=== PATIENT | female | born 1950 | race Caucasian/White ===

== ENCOUNTER → 2017-07-17 09:10 | Outpatient (CLI) | payer MEDICARE, BC, SELFPAY ==
[2017-07-17 13:55] LABS: Basophils % 0.9 % (0.1-2.0); Eosinophils # 0.1 K/mm3 (0.0-0.4); Hematocrit 43.3 % (37.0-47.0); Hemoglobin 14.1 g/dL (12.2-16.2); Lymphocytes # 1.8 K/mm3 (0.7-4.5); Mean Corpuscular HGB Conc 32.7 g/dL (31.8-35.4); Mean Corpuscular Hemoglobin 28.8 pg (27.0-31.2); Mean Platelet Volume 7.9 fl (7.4-10.4); Monocytes # 0.2 K/mm3 (0.1-1.0); Monocytes % 5.5 % (1.7-9.3); Neutrophils # 2.2 K/mm3 (1.8-7.8); Neutrophils % 49.6 % (37.0-80.0); Platelet Count 225 K/mm3 (142-424); Red Blood Count 4.91 M/mm3 (4.20-5.40); Red Cell Distribution Width 14.3 % (11.5-17.5); White Blood Count 4.4 K/mm3 (4.8-10.8)
[2017-07-17 14:01] LABS: Alanine Aminotransferase 59 U/L (12-78); Albumin Level 4.2 gm/dL (3.4-5.0); Albumin/Globulin Ratio 1.2 (1.1-1.8); Alkaline Phosphatase 100 U/L (46-116); Anion Gap 13.3 mEq/L (5-15); Aspartate Amino Transferase 36 U/L (15-37); Bilirubin,Total 0.8 mg/dL (0.2-1.0); Blood Urea Nitrogen 11 mg/dL (7-18); Calcium 10.9 mg/dL (8.5-10.1); Carbon Dioxide 27 mmol/L (21.0-32.0); Chloride 105 mmol/L (98-107); Cholesterol 184 mg/dL (140-200); Creatine Kinase 102 U/L (26-192); Creatinine,Serum 0.52 mg/dL (0.55-1.02); Estimated Glomerular Filt Rate 118 ml/min (>60); GFR (African American) 142 ML/MIN (>60); Globulin 3.4 gm/dl (1.3-3.2); Glucose 101 mg/dL (74-106); HDL Cholesterol 61 mg/dL (29-89); LDL Cholesterol 96 mg/dL (0-130); Potassium 4.3 mmoL/L (3.5-5.1); Sodium 141 mmol/L (136-145); Thyroid Stimulating Hormone 0.84 uIU/ml (0.358-3.740); Total Protein,Serum 7.6 gm/dL (6.4-8.2); Triglycerides 133 mg/dL (30-200); VLDL Cholesterol 27 mg/dL (0-40)
[2017-07-18 12:10] LABS: Folate 16.9 ng/mL (>3.0); Vitamin B12 379 pg/mL (232-1245)
[2017-07-20 20:12] LABS: 1,25-Dihydroxy, Vitamin D-2 11 pg/mL (.)
[2017-07-21 12:49] LABS: 1,25 Dihydroxy Vitamin D 60 pg/mL (.); 1,25-Dihydroxy, Vitamin D-3 49 pg/mL (.)
== END ==
PROVIDERS: PCP Emergency Medicine; Visit Provider Emergency Medicine
DX: E78.5 Hyperlipidemia, unspecified (principal); M81.0 Age-related osteoporosis without current pathological fracture; M19.90 Unspecified osteoarthritis, unspecified site
CPT/HCPCS: 36415; 80053; 80061; 82550; 82607; 82652; 82746; 84443; 85025

== ENCOUNTER 2017-07-26 15:00 | Outpatient (RCR) | payer MEDICARE, BC, SELFPAY | END 2017-08-14 16:09 | disposition home or self-care (01) | LOC: PT 15:00 | PROVIDERS: Visit Provider Orthopaedic Surgery | DX: M25.551 Pain in right hip (principal); Z96.641 Presence of right artificial hip joint | CPT/HCPCS: 97033; 97110; 97164 ==

== ENCOUNTER 2017-08-22 09:00 | Outpatient (RCR) | payer MEDICARE, BC, SELFPAY | END 2017-08-29 13:00 | disposition home or self-care (01) | LOC: PT 09:00 | PROVIDERS: PCP Emergency Medicine; Visit Provider Emergency Medicine | DX: M54.42 Lumbago with sciatica, left side (principal) | CPT/HCPCS: 97012; 97014; 97035; 97110; 97163; G0283 ==

== ENCOUNTER 2017-10-12 11:00 | Outpatient (RCR) | payer MEDICARE, BC, SELFPAY | END 2017-10-12 12:07 | disposition home or self-care (01) | LOC: PT 11:00 | PROVIDERS: PCP Emergency Medicine; Visit Provider Orthopaedic Surgery | DX: Z96.642 Presence of left artificial hip joint (principal); M16.12 Unilateral primary osteoarthritis, left hip | CPT/HCPCS: 97110; 97163 ==

== ENCOUNTER 2018-01-23 15:00 | Outpatient (RCR) | payer MEDICARE, BC, SELFPAY | END 2018-02-22 09:46 | disposition home or self-care (01) | LOC: PT 15:00 | PROVIDERS: PCP Emergency Medicine; Visit Provider Neurological Surgery | DX: M51.36 Other intervertebral disc degeneration, lumbar region (principal); M51.26 Other intervertebral disc displacement, lumbar region | CPT/HCPCS: 97012; 97014; 97110; 97140; 97163; G0283 ==

== ENCOUNTER → 2018-05-07 09:04 | Outpatient (CLI) | payer MEDICARE, BC, SELFPAY ==
[2018-05-07 09:11] LABS: Microscopic, Urine URINE MICROSCOPIC (MICROSCOPIC)
[2018-05-07 13:37] LABS: Appearance,Urine TURBID (Clear); Bilirubin,Urine Negative (Negative); Blood, Urine TRACE-I (Negative); Color,Urine YELLOW (Yellow); Glucose,Urine (UA) Negative (Negative); Ketones,Urine Negative (Negative); Leukocyte Esterase,Urine 3+ (Negative); Nitrate,Urine POSITIVE (Negative); PH,Urine 7.5 (5.0-8.5); Protein,Urine TRACE (Negative); Specific Gravity, Urine 1.015 (1.005-1.030)
[2018-05-07 13:43] LABS: Bacteria,Urine 4+ /lpf; WBC,Urine TNTC #/hpf (0-3)
[2018-05-07 13:44] LABS: RBC,Urine Occasional #/hpf (0-3)
== END ==
PROVIDERS: PCP Emergency Medicine; Visit Provider Emergency Medicine
DX: N39.0 Urinary tract infection, site not specified (principal)
CPT/HCPCS: 81001; 87086; 87088; 87186

== ENCOUNTER → 2018-05-30 09:57 | Outpatient (CLI) | payer MEDICARE, BC, SELFPAY ==
[2018-05-30 10:02] LABS: Microscopic, Urine URINE MICROSCOPIC (MICROSCOPIC)
[2018-05-30 14:11] LABS: Appearance,Urine CLOUDY (Clear); Bilirubin,Urine Negative (Negative); Blood, Urine TRACE-I (Negative); Color,Urine YELLOW (Yellow); Glucose,Urine (UA) Negative (Negative); Ketones,Urine Negative (Negative); Leukocyte Esterase,Urine 1+ (Negative); Nitrate,Urine POSITIVE (Negative); Protein,Urine 1+ (Negative); Specific Gravity, Urine 1.025 (1.005-1.030); Urobilinogen,Urine 0.2 EU/dl (0.2)
[2018-05-30 14:30] LABS: Bacteria,Urine 2+ /lpf; WBC,Urine 20-50 #/hpf (0-3)
== END ==
PROVIDERS: PCP Emergency Medicine; Visit Provider Emergency Medicine
DX: N39.0 Urinary tract infection, site not specified (principal)
CPT/HCPCS: 81001; 87086; 87088; 87186

== ENCOUNTER 2018-05-30 10:00 | Outpatient (RCR) | payer MEDICARE, BC, SELFPAY | END 2018-07-03 16:35 | disposition home or self-care (01) | LOC: PT 10:00 | PROVIDERS: Visit Provider Orthopaedic Surgery Adult Reconstructive Orthopaedic Surgery | DX: Z96.641 Presence of right artificial hip joint (principal) | CPT/HCPCS: 97110; 97112; 97116; 97140; 97163 ==

== ENCOUNTER → 2018-07-09 09:33 | Outpatient (CLI) | payer MEDICARE, BC, SELFPAY ==
[2018-07-09 09:40] LABS: Microscopic, Urine URINE MICROSCOPIC (MICROSCOPIC)
[2018-07-09 14:10] LABS: Appearance,Urine CLEAR (Clear); Bilirubin,Urine Negative (Negative); Blood, Urine TRACE-I (Negative); Color,Urine YELLOW (Yellow); Glucose,Urine (UA) Negative (Negative); Ketones,Urine Negative (Negative); Leukocyte Esterase,Urine Negative (Negative); Nitrate,Urine Negative (Negative); PH,Urine 5.5 (5.0-8.5); Protein,Urine Negative (Negative); Specific Gravity, Urine 1.025 (1.005-1.030); Urobilinogen,Urine 0.2 EU/dl (0.2)
[2018-07-09 14:28] LABS: RBC,Urine Occasional #/hpf (0-3)
[2018-07-09 14:29] LABS: Bacteria,Urine Trace /lpf; Calcium Oxalate Crystals,Urine 2+ /lpf; Squamous Epithelial Cell,Urine Occasional #/hpf (0-5); WBC,Urine Occasional #/hpf (0-3)
== END ==
PROVIDERS: PCP Emergency Medicine; Visit Provider Emergency Medicine
DX: N39.0 Urinary tract infection, site not specified (principal)
CPT/HCPCS: 81001

== ENCOUNTER 2018-07-20 08:00 | Outpatient (RCR) | payer MEDICARE, BC, SELFPAY | END 2018-08-21 10:46 | disposition home or self-care (01) | LOC: PT.CARL 08:00 | PROVIDERS: Visit Provider Orthopaedic Surgery Orthopaedic Surgery of the Spine | DX: M54.9 Dorsalgia, unspecified (principal) | CPT/HCPCS: 97110; 97163 ==

== ENCOUNTER → 2018-08-10 08:05 | Outpatient (POV) | payer MEDICARE, BC, SELFPAY ==
[2018-08-10 08:12] LABS: Microscopic, Urine URINE MICROSCOPIC (MICROSCOPIC)
[2018-08-10 13:54] LABS: Appearance,Urine CLOUDY (Clear); Bilirubin,Urine Negative (Negative); Blood, Urine 1+ (Negative); Color,Urine YELLOW (Yellow); Glucose,Urine (UA) Negative (Negative); Ketones,Urine Negative (Negative); Leukocyte Esterase,Urine 1+ (Negative); Nitrate,Urine POSITIVE (Negative); Protein,Urine 1+ (Negative); Urobilinogen,Urine 0.2 EU/dl (0.2)
[2018-08-10 14:19] LABS: Bacteria,Urine 1+ /lpf; WBC,Urine 20-50 #/hpf (0-3)
== END ==
PROVIDERS: PCP Emergency Medicine; Visit Provider Emergency Medicine
DX: N39.0 Urinary tract infection, site not specified (principal)
CPT/HCPCS: 81001; 87086; 87088; 87186

== ENCOUNTER → 2019-04-01 08:05 | Outpatient (CLI) | payer MEDICARE, BC, SELFPAY ==
[2019-04-01 08:16] LABS: Microscopic, Urine URINE MICROSCOPIC (MICROSCOPIC)
[2019-04-01 13:48] LABS: Appearance,Urine CLEAR (Clear); Bilirubin,Urine Negative (Negative); Blood, Urine TRACE-I (Negative); Color,Urine YELLOW (Yellow); Glucose,Urine (UA) Negative (Negative); Ketones,Urine Negative (Negative); Leukocyte Esterase,Urine Negative (Negative); Nitrate,Urine Negative (Negative); Protein,Urine Negative (Negative); Specific Gravity, Urine 1.025 (1.005-1.030); Urobilinogen,Urine 0.2 EU/dl (0.2)
[2019-04-01 14:06] LABS: Hemoglobin A1C 5.6 % (0.0-7.0)
[2019-04-01 14:25] LABS: Alanine Aminotransferase 72 U/L (12-78); Albumin Level 3.8 gm/dL (3.4-5.0); Albumin/Globulin Ratio 1.3 (1.1-1.8); Alkaline Phosphatase 90 U/L (46-116); Anion Gap 12.9 mEq/L (5-15); Aspartate Amino Transferase 30 U/L (15-37); Bilirubin,Total 1.1 mg/dL (0.2-1.0); Blood Urea Nitrogen 12 mg/dL (7-18); Calcium 10.1 mg/dL (8.5-10.1); Carbon Dioxide 26 mmol/L (21.0-32.0); Chloride 104 mmol/L (98-107); Chol/HDL Ratio 3.2 (1-3.5); Cholesterol 223 mg/dL (140-200); Creatine Kinase 62 U/L (26-192); Creatinine,Serum 0.49 mg/dL (0.55-1.02); Estimated Glomerular Filt Rate 125 ml/min (>60); GFR (African American) 152 ML/MIN (>60); Globulin 2.9 gm/dl (1.3-3.2); Glucose 90 mg/dL (74-106); HDL Cholesterol 69 mg/dL (29-89); LDL Cholesterol 115 mg/dL (0-130); Potassium 3.9 mmoL/L (3.5-5.1); Sodium 139 mmol/L (136-145); Thyroid Stimulating Hormone 0.71 uIU/ml (0.358-3.740); Total Protein,Serum 6.7 gm/dL (6.4-8.2); Triglycerides 196 mg/dL (30-200); VLDL Cholesterol 39 mg/dL (0-40)
[2019-04-01 14:27] LABS: Bacteria,Urine Trace /lpf; RBC,Urine Occasional #/hpf (0-3)
[2019-04-01 14:34] LABS: Basophils % 0.4 % (0.1-2.0); Eosinophils # 0.1 K/mm3 (0.0-0.4); Eosinophils % 1.5 % (0.1-12.0); Hematocrit 44.4 % (37.0-47.0); Lymphocytes # 2.3 K/mm3 (0.7-4.5); Lymphocytes % 25.3 % (10-50); Mean Corpuscular HGB Conc 33.8 g/dL (31.8-35.4); Mean Corpuscular Hemoglobin 30.2 pg (27.0-31.2); Mean Corpuscular Volume 89.4 fl (81-99); Mean Platelet Volume 8.7 fl (7.4-10.4); Monocytes # 0.3 K/mm3 (0.1-1.0); Monocytes % 3.8 % (1.7-9.3); Neutrophils # 6.2 K/mm3 (1.8-7.8); Platelet Count 244 K/mm3 (142-424); Red Blood Count 4.96 M/mm3 (4.20-5.40); Red Cell Distribution Width 13.7 % (11.5-17.5)
[2019-04-01 14:41] LABS: Erythrocyte Sedimentation Rate 58 mm/hr (0-30)
[2019-04-02 16:10] LABS: Vitamin B12 402 pg/mL (232-1245)
[2019-04-02 16:11] LABS: Folate 12.5 ng/mL (>3.0); Vitamin D 25 Hydroxy 18.3 ng/mL (30.0-100.0)
== END ==
PROVIDERS: PCP Emergency Medicine; Visit Provider Emergency Medicine
DX: E78.5 Hyperlipidemia, unspecified (principal); I10 Essential (primary) hypertension; E66.9 Obesity, unspecified; J18.9 Pneumonia, unspecified organism; E83.52 Hypercalcemia; R82.90 Unspecified abnormal findings in urine; M51.36 Other intervertebral disc degeneration, lumbar region; M83.9 Adult osteomalacia, unspecified; K75.81 Nonalcoholic steatohepatitis (NASH); Z79.899 Other long term (current) drug therapy
CPT/HCPCS: 36415; 80053; 80061; 81001; 82550; 82607; 82652; 82746; 83036; 84443; 85025; 85651; 87040; 87086

== ENCOUNTER → 2019-11-08 08:19 | Outpatient (CLI) | payer MEDICARE, BC, SELFPAY | PROVIDERS: PCP Emergency Medicine; Visit Provider Family Medicine | DX: Z78.0 Asymptomatic menopausal state (principal); Z87.81 Personal history of (healed) traumatic fracture; I10 Essential (primary) hypertension ==

== ENCOUNTER → 2020-07-02 13:36 | Outpatient (CLI) | payer MEDICARE, BC, SELFPAY ==
--- NOTE | 2020-07-02 | CA_ITS ---
APPROVED REPORT Left Lower Extremity Venous Study for DVT. Group Home Counselor: Iesha Barillas RVT Indications Lower Extremity Edema: Left LLE EDEMA X 1 MTH Medications Aspirin Vein Imaging CFV (L): compressive, spontaneous, phasic, augmentation FEM (L): compressive, spontaneous, phasic, augmentation POP (L): compressive, spontaneous, phasic, augmentation PTV (L): Compressible GSV (L): Compressible Peroneals (L):Compressible GAS (L): Compressible Findings Study suggests no evidence of DVT of the left lower extremity. Study suggests no evidence of SVT of the left lower extremity. Conclusion Study suggests no evidence of DVT of the left lower extremity. Study suggests no evidence of SVT of the left lower extremity. Electronically signed by : Lloyd Mccarty MD 07/02/2020 14:58:14
== END ==
PROVIDERS: PCP Nurse Practitioner Family; Visit Provider Nurse Practitioner Family
DX: M79.662 Pain in left lower leg (principal); I83.892 Varicose veins of left lower extremity with other complications; R60.0 Localized edema
CPT/HCPCS: 93971

== ENCOUNTER → 2021-03-08 11:00 | Outpatient (CLI) | payer MEDICARE, BC, SELFPAY | PROVIDERS: PCP Emergency Medicine; Visit Provider Nurse Practitioner | DX: Z20.822 Contact with and (suspected) exposure to COVID-19 (principal) | CPT/HCPCS: C9803; U0003; U0005 ==

== ENCOUNTER 2021-03-08 11:14 | Emergency (ER) | payer MEDICARE, BC, SELFPAY ==
[2021-03-08 11:15] VITALS: BP 133/79; PULSE 97; RESP 18; TEMP 36.8; O2SAT 97; BMI 34.5
--- NOTE | 2021-03-08 11:46 | XR_ITS ---
PROCEDURE: XR CHEST AP CLINICAL HISTORY: covid exposure, cough, LS COMPARISON: No exams were available for comparison FINDINGS: The cardiomediastinal silhouette and pulmonary vascularity are within normal limits. Calcified node is present in the AP window on the left. There 2 faint small linear densities overlying the right apex and may be related to small clips. Lungs are clear. No acute bony finding. IMPRESSION: No acute findings. Dictated by: Lloyd Mccarty MD 03/08/2021 12:26 Lloyd Mccarty MD in [place] 03/08/2021 12:26
[2021-03-08 11:57] LABS: Coronavirus 19, PCR Not Detected (NotDetected); Influenza A, PCR Not Detected (NotDetected); Influenza B, PCR Not Detected (NotDetected)
--- NOTE | 2021-03-08 12:28 | HMH.EDGENADL ---
ED Disposition Clinical Impression: Viral URI Disposition: Home, Self-Care Condition on Discharge: Good Additional Instructions: Follow-up with your primary care for any persisting symptoms. Return ED with new, worsening, concerning symptoms. Continue all home medications as previously directed. Referrals: Robert Hope MD [Primary Care Provider] - - Critical Care Critical Care Time: No Attestation: On 03/08/21, the high probability of a clinically significant, sudden or life threatening deterioration of the following system(s) required my full and direct attention, intervention and personal management. The time I documented below is in addition to time spent performing reported procedures but includes the following listed in this critical care notation. Medical Decision Making - Medical Records Medical records reviewed: Yes: I reviewed the patient's medical records. - Solomon Inquiry Pt receiving controlled substance: No Vital Signs: 03/08/21 11:15 Temperature 98.3 F Temperature Source Oral Pulse Rate [Left Radial] 97 H Respiratory Rate 18 Blood Pressure [Left Arm] 133/79 Blood Pressure Mean [Left Arm] 97 Blood Pressure Source [Left Arm] Automatic Cuff Blood Pressure Position [Left Arm] Sitting 02 Sat by Pulse Oximetry 97 Oxygen Delivery Method Room Air - Lab Data Lab Results 03/08/21 11:33: SARS-CoV-2 (PCR) Not detected, Influenza A Untype (PCR) Not detected, Influenza Type B (PCR) Not detected - Radiology Data #1 Image(s): Chest Image Reviewed: Yes I reviewed the patient's radiology results INDINGS: The cardiomediastinal silhouette and pulmonary vascularity are within normal limits. Calcified node is present in the AP window on the left. There 2 faint small linear densities overlying the right apex and may be related to small clips. Lungs are clear. No acute bony finding. IMPRESSION: No acute findings. Medical Decision Narrative: 70-year-old female who is presenting with cough, congestion x2 to 3 days. Differential diagnoses include COVID-19, viral upper respiratory infection, GERD, COPD exacerbation, pneumonia. Given this work-up will include COVID-19 swab, chest x-ray. Vital signs currently stable, patient is satting well on room air, breathing is nonlabored. At this point labs not indicated. Patient initially was requesting that she receive a CT scan of her chest, discussed that with her reassuring vital signs and physical exam we would prefer to obtain a COVID-19 test and a chest x-ray to assess for underlying pneumonia. If this is abnormal we will consider obtaining a CT scan however at this point I do not feel that she needs a CT scan of her chest. Labs not currently indicated. No signs of wheezing, clinically less suspicious for COPD exacerbation. Chest x-ray with no acute findings, Covid test negative. Repeat vital signs stable. This point patient is okay for discharge. General Adult HPI - General Chief complaint: Upper Respiratory Infection Stated complaint: soa, cough,sore throat, congestion, runny nose Time Seen by Provider: 03/08/21 11:55 Mode of Arrival: Ambulatory Source of Information: Patient Limitations: No Limitations Description of Symptoms (Recalled from ER Triage Doc. by RN): Pt c/o cough, nasal drainage, and feeling bad since Monday morning. Pt advises that her daughter tested positive for COVID yesterday and pt's PCP told her a CT is necessary to check for pneumonia - History of Present Illness HPI narrative: 70-year-old female presenting with cough over the last 2 to 3 days. Patient is most concerned that she may have COVID-19. States that she is recently been with her daughter and son-in-law who recently tested positive for COVID-19. She has had 2 to 3 days of cough. No fevers or chills. No chest pain. She does state that she had posttussive chest pain yesterday. No unilateral leg swelling, no abdominal pain, no diarrhea, no vomit
[2021-03-08 13:11] VITALS: BP 132/70; PULSE 87; RESP 16; TEMP 36.8; O2SAT 98
== END 2021-03-08 13:12 | disposition home or self-care (01) ==
PROVIDERS: Emergency Provider Emergency Medicine; PCP Emergency Medicine
DX: J06.9 Acute upper respiratory infection, unspecified (principal); Z20.822 Contact with and (suspected) exposure to COVID-19
CPT/HCPCS: 71045; 99282; C9803; U0003; U0005

== ENCOUNTER 2021-05-01 10:13 | Emergency (ER) | payer MEDICARE, BC, SELFPAY ==
[2021-05-01 10:20] VITALS: BP 122/65; PULSE 106; RESP 18; TEMP 37; O2SAT 99; BMI 31.8
--- NOTE | 2021-05-01 10:45 | HMH.EDUTC ---
[facility] [place] Disposition Clinical Impression: COVID-19 virus test result unknown UTI (urinary tract infection) Qualifiers: Urinary tract infection type: acute cystitis Hematuria presence: with hematuria Qualified Code(s): N30.01 - Acute cystitis with hematuria Disposition: Home, Self-Care Condition on Discharge: Good Instructions: Urinary Tract Infection, DI for Urinary Tract Infection (UTI), DI for COVID-19 (Suspected or Confirmed ) Additional Instructions: covid swab was sent to lab, call tomorrow for results. self isolate until test results are known to be negative Increase fluids, water and not soda or tea. Can drink cranberry juice or cranberry extract. White front to back Wear cotton underwear Empty bladder after intercourse Start antibiotics immediately and make sure you take the full course although you may start to see improvement over the next 48 hours. You can eat yogurt or take probiotics to decrease diarrhea or yeast infection caused by the antibiotic Be sure to follow-up anytime for new or worsening symptoms in 48 hours for wound urine culture results be sure to let you PCP no recent urine for culture so they can request records and ensure that you have appropriate antibiotic if you are not getting better or getting worse. If symptoms worsen or do not improve return or be seen in the ER. Follow-up with primary care this week. Prescriptions: cephALEXin [Cephalexin 500mg Tab] 500 mg PO BID 7 Days #14 tab Transmission Status: Pending to [id number] Referrals: Donaldo Godinez MD [Primary Care Provider] - Time of Disposition: 11:03 Medical Decision Making - Solomon Inquiry Pt receiving controlled substance: No Vital Signs: 05/01/21 10:20 Temperature 98.6 F Temperature Source Oral Pulse Rate [Right Brachial] 106 H Respiratory Rate 18 Blood Pressure [Right Arm] 122/65 Blood Pressure Mean [Right Arm] 84 Blood Pressure Source [Right Arm] Automatic Cuff Blood Pressure Position [Right Arm] Sitting 02 Sat by Pulse Oximetry 99 Oxygen Delivery Method Room Air - Lab Data Lab Results 05/01/21 10:23: Urine Color Dark yellow, Urine Appearance Cloudy, Urine pH 5.5, Ur Specific [place] 1.025, Urine Protein 1+, Urine Glucose (UA) Negative, Urine Ketones Negative, Urine Blood 3+, Urine Nitrate Positive A, Urine Bilirubin Negative, Urine Urobilinogen 1, Ur Leukocyte Esterase 1+ A Orders (Tests/Meds): ORDERS Category Date Time Status Covid-19 Nasal PCR ([facility]) Routine Lab 05/01/21 10:37 Ordered Urine Culture Stat Micro 05/01/21 10:50 Ordered [facility] UTC HPI - General Chief complaint: Urgent [facility] Stated complaint: possible uti Time Seen by Provider: 05/01/21 10:45 Mode of Arrival: Ambulatory Source of Information: Patient Limitations: No Limitations Description of Symptoms (Recalled from Triage Doc. by RN): PATIENT C/O FREQUENT URINATION, CONGESTION, AND COUGH X 3 DAYS. REQUESTING COVID TEST HEENT Symptoms (Recalled from RN notes): Yes Resp Symptoms (Recalled from RN notes): Yes Skin Symptoms (Recalled from RN notes): No MS Symptoms (Recalled from RN notes): No Functional Status (Recalled from RN notes): WNL - History of Present Illness Provider Complaint: 70 yr old female presents for back pain, burning with voiding,freq,urgency,and congestion and cough since . also requesting covid test - Related Data Previous Rx's Medication Instructions Recorded cephALEXin [Cephalexin 500mg Tab] 500 mg PO BID 7 Days #14 tab 05/01/21 Allergies Allergy/AdvReac Type Severity Reaction Status Date / Time Sulfa (Sulfonamide Allergy Verified 03/08/21 11:44 Antibiotics) - Worker's Comp Is this a Worker's Comp case?: No [facility] History - Hepatitis A Screen Drug use history?: No High risk sexual behaviors?: No History of sexually transmitted infection?: No Currently employed?: No Childcare worker?: No Do you have indoor plumbing?: Yes Do you have electricity?: Yes Attestat
[2021-05-01 10:51] LABS: Apearance,Urine Cloudy (Clear); Bilirubin,Urine Negative (Negative); Blood, Urine 3+ (Negative); Color,Urine Dark Yellow (Yellow); Glucose,Urine (UA) Negative (Negative); Ketones,Urine Negative (Negative); PH,Urine 5.5 (5.0-8.5); Protein,Urine 1+ (Negative); Specific Gravity, Urine 1.025 (1.005-1.030); UTC Leukocyte Esterase,Urine 1+ (Negative); UTC Nitrate,Urine Positive (Negative); Urobilinogen,Urine 1 EU/dl (0.2)
[2021-05-01 11:03] VITALS: BP 122/65; PULSE 106; RESP 18; TEMP 37; O2SAT 99
== END 2021-05-01 11:06 | disposition home or self-care (01) ==
PROVIDERS: Emergency Provider Nurse Practitioner Family; PCP Family Medicine
DX: U07.1 COVID-19 (principal); N30.01 Acute cystitis with hematuria; B96.20 Unspecified Escherichia coli [E. coli] as the cause of diseases classified elsewhere
CPT/HCPCS: G0463; 81003; 87086; 87088; 87186; 99202; C9803; U0003; U0005

== ENCOUNTER 2022-03-28 10:03 | Emergency (ER) | payer MEDICARE, BC, SELFPAY ==
[2022-03-28 11:20] VITALS: BP 140/83; PULSE 112; RESP 20; TEMP 37.1; O2SAT 95; BMI 32.8
[2022-03-28 11:30] LABS: UTC Strep Screen (Rapid) Negative (Negative)
--- NOTE | 2022-03-28 11:32 | EXP.UTC ---
Discharge Plan Disposition Patient Disposition: Home, Self-Care Condition: Good Prescriptions Prescriptions: New amoxicillin-pot clavulanate 875-125 mg Tablet 1 tab PO Q12H Qty: 20 0RF No Action cephalexin 500 MG tablet 500 mg PO BID 7 Days Qty: 14 0RF Referrals Follow up/Referrals: Jesus Manuel Miller MD [Physician] - See instructions Star Flanagan MD [Physician] - See instructions Provider,MD Becca [Primary Care Provider] - See instructions Activity Restrictions/Add. Instructions Additional Instructions/Restrictions: *Monitor Temp, Over the counter Motrin or Tylenol as directed/as needed Tylenol every 4 hours and Motrin every 6 hours (as long as your family doctor has told you that you can take it) for fever or pain. and straight to ER if unable to lower temp less than 101.0 after medication given *Warm salt water gargles may help to soothe the throat *Throat Lozenges? *Warm fluids like tea with honey may help to soothe the throat? *Sleep elevated *Humidifier/Vaporizer Your throat swab was sent for culture. Those results are typically sent to your primary care. Be sure to follow up in 2-3 days with your family doctor/primary care physician if no improvement so they can review those result and treat if necessary. If you don?t have a primary care doctor, I recommend you get one but in the mean time, you will have to return to a walk in clinic Follow up with your Family Doctor or ENT if no improvement Follow up IMMEDIATELY for new or worsening symptoms or no Noticeable improvement over the next 48-72 hours. 911 for difficulty breathing or swallowing Clinical Impressions Clinical Impression: Acute bacterial tonsillitis Instructions Patient Instructions: Sore Throat, Strep Throat, Amoxicillin and Clavulanic Acid Discharge ED Provider: Arelis Teixeira [facility] [place] HPI General Stated complaint: Sore neck gland, cough, fever Time Seen by Provider: 03/28/22 11:32 History of Present Illness Provider Complaint: Patient states that she started with sore throat States that it has continued to get worse States that she feels like the gland on right side of her throat is swollen and hurting States that today it was worse so she came in to get checked out Related Data Previous Rx's Medication Instructions Recorded cephalexin 500 mg tablet 500 mg PO BID 7 days #14 tabs 05/01/21 amoxicillin 875 mg-potassium 1 tab PO Q12H #20 tabs 03/28/22 clavulanate 125 mg tablet Allergies Allergy/AdvReac Type Severity Reaction Status Date / Time Sulfa (Sulfonamide Allergy Verified 03/08/21 11:44 Antibiotics) [facility] Disclaimer: The information contained in this section may have been updated after the patient was seen, as this information can be updated by other users. Medical History (Updated 03/28/22 @ 11:42 by Arelis Teixeira APRN) Anxiety Hyperlipidemia Hypertension Urinary tract infection Social History Smoking Status: Unknown if ever smoked alcohol intake: never current occupational status: employed Travel in the last 8 weeks: None ROS Obtained: Yes All systems reviewed & no additional complaints except as documented and Yes Systems reviewed as appropriate & no additional complaints except as documented Constitutional Constitutional: Reports system reviewed and no additional complaints, except as documented and Reports as per HPI Eyes Eyes: Reports system reviewed and no additional complaints, except as documented and Reports as per HPI ENT Ears, Nose, Mouth, and Throat: Reports system reviewed and no additional complaints, except as documented, Reports as per HPI and Reports sore throat Cardiovascular Cardiovascular: Reports system reviewed and no additional complaints, except as documented and Reports as per HPI Respiratory Respiratory: Reports system reviewed and no additional complaints, except as documented and Reports as per HPI Physical Exam Gener
[2022-03-28 11:46] VITALS: BP 140/83; PULSE 112; RESP 20; TEMP 37.1; O2SAT 95
== END 2022-03-28 11:47 | disposition home or self-care (01) ==
PROVIDERS: Emergency Provider Nurse Practitioner
DX: J03.80 Acute tonsillitis due to other specified organisms (principal)
CPT/HCPCS: 87880; 99212; G0463

== ENCOUNTER 2022-09-20 10:51 | Emergency (ER) | payer MEDICARE, BC, SELFPAY ==
[2022-09-20 10:52] VITALS: BP 142/78; PULSE 71; RESP 16; TEMP 36.6; O2SAT 98; BMI 34.5
--- NOTE | 2022-09-20 11:03 | EXP.UTC ---
Discharge Plan Disposition Patient Disposition: Home, Self-Care Condition: Good Prescriptions Prescriptions: New phenazopyridine [Pyridium] 200 mg tablet 200 mg PO Q8H 2 Days Qty: 6 0RF ciprofloxacin HCl [Cipro] 500 mg tablet 500 mg PO BID 7 Days Qty: 14 0RF No Action cephalexin 500 MG tablet 500 mg PO BID 7 Days Qty: 14 0RF amoxicillin-pot clavulanate 875-125 mg Tablet 1 tab PO Q12H Qty: 20 0RF Referrals Follow up/Referrals: Provider,Referral, MD [Primary Care Provider] - See instructions Activity Restrictions/Add. Instructions Additional Instructions/Restrictions: Drink plenty of fluids. Take tylenol or ibuprofen for pain or fever. Take the medications as directed. Follow up with your regular doctor. GO TO THE ER FOR ANY WORSENING SYMPTOMS The pyridium will make your urine turn orange, this is an expected side effect. It will stain your clothes if it comes into contact with them. We will culture the urine. That will tell what bacteria is causing your infection and which antibiotics will treat it best. Sometimes the first antibiotic we prescribe turns out to not work against different bacteria. So, make sure you follow up within 3 days if you are not getting better. Clinical Impressions Clinical Impression: UTI (urinary tract infection) Instructions Patient Instructions: Urinary Tract Infection, Urine Culture, DI for Urinary Tract Infection (UTI), Phenazopyridine Discharge ED Provider: Bimal Cheng [facility] [place] General Stated complaint: Possible UTI Time Seen by Provider: 09/20/22 11:03 History of Present Illness Provider Complaint: She c/o dysuria, low back pain and urinary frequency for the past 2 days. Related Data Previous Rx's Medication Instructions Recorded cephalexin 500 mg tablet 500 mg PO BID 7 days #14 tabs 05/01/21 amoxicillin 875 mg-potassium 1 tab PO Q12H #20 tabs 03/28/22 clavulanate 125 mg tablet ciprofloxacin HCl 500 mg tablet 500 mg PO BID 7 days #14 tabs 09/20/22 (Cipro) phenazopyridine 200 mg tablet 200 mg PO Q8H 2 days #6 tabs 09/20/22 (Pyridium) Allergies Allergy/AdvReac Type Severity Reaction Status Date / Time Sulfa (Sulfonamide Allergy Verified 03/08/21 11:44 Antibiotics) [facility] Disclaimer: The information contained in this section may have been updated after the patient was seen, as this information can be updated by other users. Medical History Anxiety Hyperlipidemia Hypertension Urinary tract infection Social History Smoking Status: Unknown if ever smoked alcohol intake: never current occupational status: employed Travel in the last 8 weeks: None ROS Obtained: Yes All systems reviewed & no additional complaints except as documented Constitutional Constitutional: Reports system reviewed and no additional complaints, except as documented, Denies chills and Denies fever(s) Eyes Eyes: Denies eye discharge ENT Ears, Nose, Mouth, and Throat: Denies dysphagia, Denies sore throat and Denies throat swelling Cardiovascular Cardiovascular: Denies chest pain and Denies dyspnea Respiratory Respiratory: Denies chest congestion, Denies cough and Denies dyspnea Gastrointestinal Gastrointestingal: Denies abdominal pain, constipation, diarrhea, dysphagia, nausea or vomiting Genitourinary Female Genitourinary: Reports as per HPI, Reports dysuria, Reports urinary frequency, Denies urinary incontinence, Reports urinary hesitancy and Reports urinary urgency Musculoskeletal Musculoskeletal: Denies arthralgias and Reports back pain Integumentary/Breasts Skin/Breast: Denies rash Neurologic Neurologic: Denies paresthesias Allergic/Immunologic Allergic/Immunologic: Denies throat swelling Physical Exam General General appearance: alert and in no apparent distress Head Head exam: atraumatic and normocephalic Ey
[2022-09-20 11:11] LABS: Apearance,Urine Clear (Clear); Color,Urine Orange (Yellow); Glucose,Urine (UA) Negative (Negative); PH,Urine 5.5 (5.0-8.5); Protein,Urine 3+ (Negative)
[2022-09-20 11:12] LABS: Bilirubin,Urine Negative (Negative); Blood, Urine Negative (Negative); Ketones,Urine Negative (Negative); UTC Leukocyte Esterase,Urine Negative (Negative); UTC Nitrate,Urine Positive (Negative); Urobilinogen,Urine 0.2 EU/dl (0.2)
[2022-09-20 11:36] VITALS: BP 142/78; PULSE 71; RESP 16; TEMP 36.6; O2SAT 98
== END 2022-09-20 11:37 | disposition home or self-care (01) ==
PROVIDERS: Emergency Provider Nurse Practitioner Family
DX: F41.9 Anxiety disorder, unspecified (principal); N39.0 Urinary tract infection, site not specified; E78.5 Hyperlipidemia, unspecified; I10 Essential (primary) hypertension
CPT/HCPCS: 81003; 87086; 87088; 87186; 99212; 99214; G0463

== ENCOUNTER → 2022-10-13 11:00 | Outpatient (CLI) | payer MEDICARE, BC, SELFPAY | PROVIDERS: PCP Nurse Practitioner Family; Visit Provider Nurse Practitioner Family | DX: R30.0 Dysuria (principal); B96.29 Other Escherichia coli [E. coli] as the cause of diseases classified elsewhere | CPT/HCPCS: 87086; 87088; 87186 ==

== ENCOUNTER → 2022-10-27 11:05 | Outpatient (CLI) | payer MEDICARE, BC, SELFPAY | PROVIDERS: PCP Nurse Practitioner Family; Visit Provider Nurse Practitioner Family | DX: N39.0 Urinary tract infection, site not specified (principal) | CPT/HCPCS: 87086 ==

== ENCOUNTER 2022-11-22 09:00 | Outpatient (RCR) | payer MEDICARE, BC, SELFPAY | END 2022-12-22 16:50 | disposition home or self-care (01) | LOC: PT 09:00 | PROVIDERS: Visit Provider Orthopaedic Surgery Adult Reconstructive Orthopaedic Surgery | DX: M17.12 Unilateral primary osteoarthritis, left knee (principal); Z96.652 Presence of left artificial knee joint | CPT/HCPCS: 97010; 97014; 97110; 97140; 97163; 97164; 97530; G0283 ==

== ENCOUNTER 2024-04-23 09:24 | Outpatient (CLI) | payer MEDICARE, SELFPAY ==
[2024-04-23 16:19] LABS: Basophils % 0.6 % (0.1-2.0); Eosinophils # 0.1 K/mm3 (0.0-0.4); Hematocrit 40.8 % (37.0-47.0); Hemoglobin 13.8 g/dL (12.2-16.2); Lymphocytes # 1.1 K/mm3 (0.7-4.5); Lymphocytes % 18.1 % (10-50); Mean Corpuscular HGB Conc 33.8 g/dL (31.8-35.4); Mean Corpuscular Hemoglobin 30.3 pg (27.0-31.2); Mean Corpuscular Volume 89.5 fl (81-99); Mean Platelet Volume 10.5 fl (7.4-10.4); Monocytes # 0.5 K/mm3 (0.1-1.0); Monocytes % 7.3 % (1.7-9.3); Neutrophils # 4.6 K/mm3 (1.8-7.8); Neutrophils % 72.8 % (37.0-80.0); Platelet Count 192 K/mm3 (142-424); Red Blood Count 4.56 M/mm3 (4.20-5.40); Red Cell Distribution Width 12.9 % (11.5-17.5); White Blood Count 6.3 K/mm3 (4.8-10.8)
[2024-04-23 16:51] LABS: Alanine Aminotransferase 31 U/L (12-78); Albumin Level 4.8 g/dl (3.5-5.0); Albumin/Globulin Ratio 2.2 (1.1-1.8); Alkaline Phosphatase 68 U/L (38-126); Anion Gap 13.2 mEq/L (5-15); Aspartate Amino Transferase 44 U/L (14-36); Blood Urea Nitrogen 18 mg/dl (7-17); Calcium 10.9 mg/dl (8.4-10.2); Carbon Dioxide 27 mmol/L (22.0-30.0); Chloride 102 mmol/L (98-107); Chol/HDL Ratio 1.9 (1-3.5); Cholesterol 126 mg/dl (140-200); Estimated Glomerular Filt Rate 121 ml/min (>60); GFR (African American) 146 ML/MIN (>60); Globulin 2.2 g/dL (1.3-3.2); Glucose 78 mg/dl (74-100); HDL Cholesterol 65 mg/dl (40-60); Potassium 4.2 mmoL/L (3.5-5.1); Sodium 138 mmol/L (136-145); Triglycerides 124 mg/dl (30-150); VLDL Cholesterol 25 mg/dL (0-40)
[2024-04-23 17:01] LABS: Direct LDL Cholesterol 51.18 mg/dL (100-129)
[2024-04-23 17:04] LABS: Intact Parathyroid Hormone 130.7 pg/mL (7.5-53.5)
[2024-04-30 22:13] LABS: 1,25 Dihydroxy Vitamin D 71 pg/mL (.); 1,25-Dihydroxy, Vitamin D-2 <10 pg/mL (.); 1,25-Dihydroxy, Vitamin D-3 71 pg/mL (.)
== END 2024-04-23 23:59 | disposition home or self-care (01) ==
LOC: LAB.DROPOF 04-24 09:25
PROVIDERS: PCP Internal Medicine; Visit Provider Internal Medicine
DX: R73.9 Hyperglycemia, unspecified (principal); E78.5 Hyperlipidemia, unspecified; E04.2 Nontoxic multinodular goiter; E55.9 Vitamin D deficiency, unspecified; I10 Essential (primary) hypertension; M15.0 Primary generalized (osteo)arthritis; E21.3 Hyperparathyroidism, unspecified
CPT/HCPCS: 80053; 80061; 82652; 83036; 83970; 84443; 85025

== ENCOUNTER 2024-05-01 06:19 | Emergency (ER) | payer MEDICARE, SELFPAY ==
[2024-05-01] VITALS (10 sets, daily range): BP systolic 112–166; BP diastolic 64–104; PULSE 102–131; RESP 18–32; TEMP 37.2; O2SAT 93–100; BMI 30.4
--- NOTE | 2024-05-01 06:20 | XR_ITS ---
FINAL REPORT TECHNIQUE: Chest PA & Lateral CLINICAL HISTORY: Cough, shortness of breath, fever, likely flu COMPARISON: None FINDINGS: 2 views of the chest were performed. The heart size is normal. The mediastinum is within normal limits. The lungs are underinflated. There is no acute cardiopulmonary process. There are no pleural effusions. There is no pneumothorax. The bony thorax appears intact. IMPRESSION: No acute cardiopulmonary process. Reviewed, Interpreted and Dictated by Juni Giordano MD Transcribed by Swapna Day Authenticated and [facility]
[2024-05-01] MEDS: IPRATROPIUM/ALBUTEROL 3 ML NEB 6 ML IH (06:30)
--- NOTE | 2024-05-01 06:31 | PC.NURSE ---
RT bedside for a gurvinder
--- NOTE | 2024-05-01 06:34 | HMH.EDGENADL ---
Discharge Plan Disposition Patient Disposition: Home, Self-Care Condition: Good Prescriptions Prescriptions: New prednisone 20 mg tablet 40 mg PO DAILY 4 Days Qty: 8 0RF [id number]-[id number]-PX [Bromfed DM] 2-30-10 mg/5 mL syrup 5 ml PO Q6H PRN (Reason: cold symptoms) Qty: 118 0RF ondansetron 4 mg tablet,disintegrating 4 mg PO Q8H PRN (Reason: nausea and vomiting) 4 Days Qty: 12 0RF No Action methenamine hippurate 1 gram tablet 1 g PO BID Patient Comments: TAKE 1 TABLET BY MOUTH TWICE A DAY DIRECTED FOR 90 DAYS losartan 50 mg tablet 50 mg PO DAILY Patient Comments: TAKE 1 TABLET BY MOUTH EVERY DAY alendronate 70 mg tablet 70 mg PO WEEKLY Patient Comments: TAKE 1 TABLET EVERY WEEK BY ORAL ROUTE IN THE MORNING ascorbate calcium (vitamin C) 500 mg tablet 500 mg PO TID ezetimibe 10 mg tablet 10 mg PO DAILY Qty: 90 1RF simvastatin 40 mg tablet 40 mg PO DAILY Qty: 90 1RF venlafaxine 37.5 mg tablet 37.5 mg PO DAILY Qty: 90 1RF gabapentin 600 mg tablet 600 mg PO BID Qty: 180 0RF Referrals Follow up/Referrals: Provider,Referral, MD [Referring] - See instructions Activity Restrictions/Add. Instructions Additional Instructions/Restrictions: You were evaluated in the emergency department today. Please use the inhaler provided to you every 4-6 hours as needed for wheezing/shortness of breath. supervisor tubing your prescriptions and take them as needed as well. Take Tylenol and ibuprofen every 4-6 hours as needed for pain/fever. Follow-up closely with your primary care provider over the next week. Return to the emergency department for new or worsening symptoms. Clinical Impressions Clinical Impression: Influenza A, Wheezing Instructions Patient Instructions: DI for Viral Upper Respiratory Infection -- Adult, DI for Reactive Airway Disease-Adult Print Language Print Language: Japanese Discharge ED Provider: Marion Davidson General Adult HPI <Gerardo Acosta MD - Last Filed: 05/01/24 06:52> General Chief complaint: Shortness of Breath/Dyspnea Stated complaint: Shortness of Breath Time Seen by Provider: 05/01/24 06:20 Mode of Arrival: Wheelchair Source of Information: Patient Limitations: No Limitations Description of Symptoms (Recalled from ER Triage Doc. by RN): Pt presents to ED for SOA, cough, and body aches. Pt states she had a gathering on Monday and other people are sick with the same symptoms. Pt states her back hurts from coughing and she's unable to expel the mucous. Pt rates pain 3/10. Pt is A&O*4 and is bedside. IV access obtaines, swab completed, and MD bedside. History of Present Illness HPI narrative: 73-year-old female with history of hypertension, hyperlipidemia presents for cough shortness of breath fever. She has been sick since Monday. Reports no history of lung problems. No history of smoking. She has had a family gathering on Monday where a lot of people are sick with the same symptoms now. Related Data Home Medications ?Medication ?Instructions ?Recorded ?Confirmed alendronate 70 mg tablet 70 mg PO WEEKLY 10/13/22 05/01/24 losartan 50 mg tablet 50 mg PO DAILY 10/13/22 05/01/24 methenamine hippurate 1 gram tablet 1 g PO BID 10/13/22 05/01/24 ascorbate calcium (vitamin C) 500 500 mg PO TID 12/20/23 05/01/24 mg tablet Previous Rx's ?Medication ?Instructions ?Recorded ezetimibe 10 mg tablet 10 mg PO DAILY #90 tabs 01/08/24 simvastatin 40 mg tablet 40 mg PO DAILY #90 tabs 01/26/24 venlafaxine 37.5 mg tablet 37.5 mg PO DAILY #90 tabs 02/05/24 gabapentin 600 mg tablet 600 mg PO BID #180 tabs 04/30/24 zypznblekteimdw-hotensiehwdlxac-LY 5 ml PO Q6H PRN cold symptoms #118 05/01/24 2 mg-30 mg-10 mg/5 mL oral syrup mL (Bromfed DM) ondansetron 4 mg disintegrating 4 mg PO Q8H PRN nausea and 05/01/24 tablet vomiting 4 days #12 tabs prednisone 20 mg tablet 40 mg (2 x 20 mg) PO DAILY 4 days 05/01/24 #8 tabs Allergies Allergy/AdvReac Type Severity Reaction Status Date / Time Sulfa (Sulfonamide Allergy Verified 04/23/24 13:05 Antibiotics) [facility] <Gerardo Acosta MD - Last Filed: 05/01/24 06:52> [facility] Disclaimer: The information contained in this section may have been updated after the patient was seen, as this information can be updated by other users. Medical History (Updated 05/01/24 @ 09:05 by Marion Davidson DO) Osteoporosis Acute bacterial tonsillitis Anxiety Hyperlipidemia Hypertension Urinary tract infection UTI (urinary tract infection) COVID-19 virus test result unknown Viral URI Surgical History Hip joint replacement status History of colonoscopy H/O thyroidectomy History of cholecystectomy History of appendectomy History of hysterectomy History of left knee replacement History of right hip replacement History of left hip replacement Social History Smoking Status: Never smoker alcohol intake: never current occupational status: employed Travel in the last 8 weeks: None Other Medical History Have you received the Flu Vaccine for this season: No Have you received the Pneumonia Vaccine: Yes <Gerardo Acosta MD - Last Filed: 05/01/24 06:52> ROS Obtained: Yes All systems reviewed & no additional complaints except as documented Physical Exam <Gerardo Acosta MD - Last Filed: 05/01/24 06:52> General General appearance: alert and in no apparent distress Head Head exam: atraumatic and normocephalic Eye Eye exam: Present normal appearance, PERRL and EOMI ENT ENT exam: Present normal oropharynx and normal external ear exam Neck Neck exam: Present normal inspection and full ROM Chest Chest inspection: Present normal inspection and symmetric chest wall rise; Absent tenderness Respiratory Respiratory exam: Absent normal lung sounds bilaterally (Bilateral rhonchi and wheezing) or respiratory distress Cardiovascular Cardiovascular exam: Present normal rhythm and tachycardia Abdominal Exam Abdominal exam: Present soft; Absent distention, tenderness or guarding Extremities Exam Extremities exam: Present normal inspection; Absent edema or joint swelling Back Exam Back exam: Present normal inspection; Absent tenderness Neurological Exam Neurological exam: Present alert and oriented X3; Absent motor sensory deficit Psychiatric Psychiatric exam: Present normal affect and normal mood Skin Skin exam: Present warm, dry and normal color Lymphatic Lymphatic Findings: no adenopathy Medical Decision Making <Gerardo Acosta MD - Last Filed: 05/01/24 06:52> Medical Records Medical records reviewed: Yes I reviewed the patient's medical records. Screening: Per USPSTF and CDC recommendations, given the prevalence of disease in our region, it is our hospital?s policy to screen for HIV and viral Hepatitis for all patients aged 18 and over and those with ongoing risk factors. Solomon Inquiry Pt receiving controlled substance: No Solomon was queried for this patient: No Vital Signs: 05/01/24 06:20 05/01/24 06:30 05/01/24 06:32 Temperature 98.9 F Temperature Source Oral Pulse Rate 102 H 110 H Pulse Rate [Left] 105 H Respiratory Rate 32 H 30 H Blood Pressure 144/82 H Blood Pressure [Right Arm] 166/104 H Blood Pressure Mean [Right Arm] 124 Blood Pressure Source 02 Sat by Pulse Oximetry 94 L 100 Oxygen Delivery Method Room Air 05/01/24 06:32 05/01/24 07:00 05/01/24 07:30 Temperature Temperature Source Pulse Rate 113 H 131 H 125 H Pulse Rate [Left] Respiratory Rate 24 27 H Blood Pressure 125/68 116/77 Blood Pressure [Right Arm] Blood Pressure Mean [Right Arm] Blood Pressure Source 02 Sat by Pulse Oximetry 96 93 L Oxygen Delivery Method Room Air Room Air 05/01/24 08:00 05/01/24 08:30 05/01/24 08:52 Temperature Temperature Source Pulse Rate 122 H 131 H 131 H Pulse Rate [Left] Respiratory Rate 31 H 18 Blood Pressure 136/82 112/64 123/80 Blood Pressure [Right Arm] Blood Pressure Mean [Right Arm] Blood Pressure Source 02 Sat by Pulse Oximetry 93 L 95 93 L Oxygen Delivery Method Room Air Room Air Room Air 05/01/24 09:00 05/01/24 09:22 Temperature 99.0 F Temperature Source Oral Pulse Rate 115 H 116 H Pulse Rate [Left] Respiratory Rate 26 H 21 Blood Pressure 119/64 121/64 Blood Pressure [Right Arm] Blood Pressure Mean [Right Arm] Blood Pressure Source Automatic Cuff 02 Sat by Pulse Oximetry 94 L Oxygen Delivery Method Room Air Room Air Lab Data Lab results reviewed: Yes I reviewed the patient's lab results. Lab Results 05/01/24 06:21: WBC 6.2, RBC 4.77, Hgb 14.4, Hct 43.5, MCV 91.2, MCH 30.2, MCHC 33.1, RDW 13.2, Plt Count 152, MPV 9.9, Neut % (Auto) 77.1, Lymph % (Auto) 16.4, Cottle % (Auto) 4.8, Eos % (Auto) 0.8, Baso % (Auto) 0.6, Neut # (Auto) 4.8, Lymph # (Auto) 1.0, Cottle # (Auto) 0.3, Eos # (Auto) 0.1, Baso # (Auto) 0.0, Sodium 140, Potassium 3.7, Chloride 104, Carbon Dioxide 26, Anion Gap 13.7, BUN 9, Creatinine 0.60, Estimated Creat Clear 61, Estimated GFR 98, Est GFR ( Amer) 118, Glucose 121 H, Calcium 10.5 H, Total Bilirubin 0.8, AST 53 H, ALT 42, Alkaline Phosphatase 74, Total Protein 7.5, Albumin 5.2 H, Globulin 2.3, Albumin/Globulin Ratio 2.3 H, SARS-CoV-2 (PCR) Not detected, HCV Ab SCOTT w/Rflx PCR Qn Negative, HIV Ag/Ab Combo Qual Negative, Influenza A Untype (PCR) Detected A, Influenza Type B (PCR) Not detected 05/01/24 06:37: VBG pH 7.29 L, VBG pCO2 46.5, VBG pO2 47.1 H, VBG HCO3 21.9 L, VBG Total CO2 23.3, VBG O2 Saturation 82.6 H, VBG Base Excess -4.7 L, VBG Lactic Acid 1.4 05/01/24 06:21 05/01/24 06:21 Orders (Tests/Meds): ED MEDICATIONS Discontinued Medications Generic Name Dose Route Start Last Admin Trade Name Tamir PRN Reason Stop Dose Admin Acetaminophen 1,000 mg 05/01/24 07:37 05/01/24 08:01 Acetaminophen 1,000mg/100ml Vial IV 05/01/24 07:38 1,000 mg ONCE ONE Administration Albuterol Sulfate 2 puff 05/01/24 08:53 05/01/24 09:03 Albuterol-Hfa 90mcg/Puff Inhaler 8gm 05/01/24 08:54 2 puff ONCE ONE Administration Albuterol/Ipratropium 6 ml 05/01/24 06:20 05/01/24 06:30 Ipratropium/Albuterol 3 Ml Neb 05/01/24 06:21 6 ml ONCE ONE Administration Albuterol/Ipratropium 3 ml 05/01/24 07:37 05/01/24 08:02 Ipratropium/Albuterol 3 Ml [facility] 05/01/24 07:38 3 ml ONCE ONE Administration Sodium Chloride 1,000 mls @ 999 mls/hr 05/01/24 06:45 05/01/24 06:46 Sod Chlor 0.9% 1000ml Bag IV 05/01/24 07:45 999 mls/hr .Q1H1M ART Administration Ketorolac Tromethamine 15 mg 05/01/24 07:37 05/01/24 08:01 Ketorolac 30mg/Ml Vial IV 05/01/24 07:38 15 mg ONCE ONE Administration Methylprednisolone Sodium Succinate 125 mg 05/01/24 07:37 05/01/24 08:01 Methylprednisolone Sod Succ 125mg Vial IV 05/01/24 07:38 125 mg ONCE ONE Administration ORDERS Category Date Time Status CXR 2 view (NOT portable) [XR chest 2V] Stat Exams 05/01/24 06:20 Completed CBC w/Auto Diff [Complete Blood Count Auto Diff] Stat Lab 05/01/24 06:21 Completed CMP [Comprehensive Metabolic Panel] Stat Lab 05/01/24 06:21 Completed HIV Combo Routine Lab 05/01/24 06:21 Completed Hepatitis C Ab Qual. W/ RFX Routine Lab 05/01/24 06:21 Completed Lactate Venous Stat Lab 05/01/24 06:37 Ordered Rapid PCR Covid and Flu A/B Stat Lab 05/01/24 06:21 Completed Blood Culture Stat Micro 05/01/24 06:28 Received VBG [Venous Blood Gas] Stat RT 05/01/24 06:37 Completed Tissue Perfus/Sepsis Re-Eval Sepsis Re-Evaluation Performed: Yes Date Performed: 05/01/24 Time Performed: 06:37 Medical Decision Narrative: 73-year-old female history of hypertension, hyperlipidemia presents with 3 days of cough congestion fever chills muscle aches. History was obtained via interactive discussion with patient, family, chart review. On arrival, patient is afebrile, mildly tachycardic, satting mid 90s on room air, moving all extremities spontaneously. Full physical exam performed and significant for bilateral wheezing and rhonchi Differential includes but is not limited to influenza, URI, bacterial pneumonia. Patient was given 1 L IV fluid bolus, Toradol, DuoNeb x 2 for symptomatic management and correction of underlying abnormalities. Workup initiated including CBC CMP VBG 2 view chest x-ray blood cultures lactate. Patient flagged positive for sepsis. Patient was only given 1 L of IV fluids at this time given concern for volume overload. No antibiotics were given immediately as patient likely has viral influenza. Lab results independently interpreted me and significant for mild acidosis, no leukocytosis, no significant electrolyte derangement. Radiographs independently interpreted by me and significant for no lobar opacity. Relatively prominent aortic arch noted. At this time care handed off to oncoming physician pending flu swab and reassessment. <Marion Davidson, DO - Last Filed: 05/01/24 10:33> Vital Signs: 05/01/24 06:20 05/01/24 06:30 05/01/24 06:32 Temperature 98.9 F Temperature Source Oral Pulse Rate 102 H 110 H Pulse Rate [Left] 105 H Respiratory Rate 32 H 30 H Blood Pressure 144/82 H Blood Pressure [Right Arm] 166/104 H Blood Pressure Mean [Right Arm] 124 Blood Pressure Source 02 Sat by Pulse Oximetry 94 L 100 Oxygen Delivery Method Room Air 05/01/24 06:32 05/01/24 07:00 05/01/24 07:30 Temperature Temperature Source Pulse Rate 113 H 131 H 125 H Pulse Rate [Left] Respiratory Rate 24 27 H Blood Pressure 125/68 116/77 Blood Pressure [Right Arm] Blood Pressure Mean [Right Arm] Blood Pressure Source 02 Sat by Pulse Oximetry 96 93 L Oxygen Delivery Method Room Air Room Air 05/01/24 08:00 05/01/24 08:30 05/01/24 08:52 Temperature Temperature Source Pulse Rate 122 H 131 H 131 H Pulse Rate [Left] Respiratory Rate 31 H 18 Blood Pressure 136/82 112/64 123/80 Blood Pressure [Right Arm] Blood Pressure Mean [Right Arm] Blood Pressure Source 02 Sat by Pulse Oximetry 93 L 95 93 L Oxygen Delivery Method Room Air Room Air Room Air 05/01/24 09:00 05/01/24 09:22 Temperature 99.0 F Temperature Source Oral Pulse Rate 115 H 116 H Pulse Rate [Left] Respiratory Rate 26 H 21 Blood Pressure 119/64 121/64 Blood Pressure [Right Arm] Blood Pressure Mean [Right Arm] Blood Pressure Source Automatic Cuff 02 Sat by Pulse Oximetry 94 L Oxygen Delivery Method Room Air Room Air Lab Data Lab Results 05/01/24 06:21: WBC 6.2, RBC 4.77, Hgb 14.4, Hct 43.5, MCV 91.2, MCH 30.2, MCHC 33.1, RDW 13.2, Plt Count 152, MPV 9.9, Neut % (Auto) 77.1, Lymph % (Auto) 16.4, Cottle % (Auto) 4.8, Eos % (Auto) 0.8, Baso % (Auto) 0.6, Neut # (Auto) 4.8, Lymph # (Auto) 1.0, Cottle # (Auto) 0.3, Eos # (Auto) 0.1, Baso # (Auto) 0.0, Sodium 140, Potassium 3.7, Chloride 104, Carbon Dioxide 26, Anion Gap 13.7, BUN 9, Creatinine 0.60, Estimated Creat Clear 61, Estimated GFR 98, Est GFR ( Amer) 118, Glucose 121 H, Calcium 10.5 H, Total Bilirubin 0.8, AST 53 H, ALT 42, Alkaline Phosphatase 74, Total Protein 7.5, Albumin 5.2 H, Globulin 2.3, Albumin/Globulin Ratio 2.3 H, SARS-CoV-2 (PCR) Not detected, HCV Ab SCOTT w/Rflx PCR Qn Negative, HIV Ag/Ab Combo Qual Negative, Influenza A Untype (PCR) Detected A, Influenza Type B (PCR) Not detected 05/01/24 06:37: VBG pH 7.29 L, VBG pCO2 46.5, VBG pO2 47.1 H, VBG HCO3 21.9 L, VBG Total CO2 23.3, VBG O2 Saturation 82.6 H, VBG Base Excess -4.7 L, VBG Lactic Acid 1.4 Orders (Tests/Meds): ED MEDICATIONS Discontinued Medications Generic Name Dose Route Start Last Admin Trade Name Freq PRN Reason Stop Dose Admin Acetaminophen 1,000 mg 05/01/24 07:37 05/01/24 08:01 Acetaminophen 1,000mg/100ml Vial IV 05/01/24 07:38 1,000 mg ONCE ONE Administration Albuterol Sulfate 2 puff 05/01/24 08:53 05/01/24 09:03 Albuterol-Hfa 90mcg/Puff Inhaler 8gm 05/01/24 08:54 2 puff ONCE ONE Administration Albuterol/Ipratropium 6 ml 05/01/24 06:20 05/01/24 06:30 Ipratropium/Albuterol 3 Ml [facility] 05/01/24 06:21 6 ml ONCE ONE Administration Albuterol/Ipratropium 3 ml 05/01/24 07:37 05/01/24 08:02 Ipratropium/Albuterol 3 Ml [facility] 05/01/24 07:38 3 ml ONCE ONE Administration Sodium Chloride 1,000 mls @ 999 mls/hr 05/01/24 06:45 05/01/24 06:46 Sod Chlor 0.9% 1000ml Bag IV 05/01/24 07:45 999 mls/hr .Q1H1M ART Administration Ketorolac Tromethamine 15 mg 05/01/24 07:37 05/01/24 08:01 Ketorolac 30mg/Ml Vial IV 05/01/24 07:38 15 mg ONCE ONE Administration Methylprednisolone Sodium Succinate 125 mg 05/01/24 07:37 05/01/24 08:01 Methylprednisolone Sod Succ 125mg Vial IV 05/01/24 07:38 125 mg ONCE ONE Administration ORDERS Category Date Time Status CXR 2 view (NOT portable) [XR chest 2V] Stat Exams 05/01/24 06:20 Completed CBC w/Auto Diff [Complete Blood Count Auto Diff] Stat Lab 05/01/24 06:21 Completed CMP [Comprehensive Metabolic Panel] Stat Lab 05/01/24 06:21 Completed HIV Combo Routine Lab 05/01/24 06:21 Completed Hepatitis C Ab Qual. W/ RFX Routine Lab 05/01/24 06:21 Completed Lactate Venous Stat Lab 05/01/24 06:37 Ordered Rapid PCR Covid and Flu A/B Stat Lab 05/01/24 06:21 Completed Blood Culture Stat Micro 05/01/24 06:28 Received VBG [Venous Blood Gas] Stat RT 05/01/24 06:37 Completed Medical Decision Narrative: 73-year-old female history of hypertension, hyperlipidemia presents with 3 days of cough congestion fever chills muscle aches. History was obtained via interactive discussion with patient, family, chart review. On arrival, patient is afebrile, mildly tachycardic, satting mid 90s on room air, moving all extremities spontaneously. Full physical exam performed and significant for bilateral wheezing and rhonchi Differential includes but is not limited to influenza, URI, bacterial pneumonia. Patient was given 1 L IV fluid bolus, Toradol, DuoNeb x 2 for symptomatic management and correction of underlying abnormalities. Workup initiated including CBC CMP VBG 2 view chest x-ray blood cultures lactate. Patient flagged positive for sepsis. Patient was only given 1 L of IV fluids at this time given concern for volume overload. No antibiotics were given immediately as patient likely has viral influenza. Lab results independently interpreted me and significant for mild acidosis, no leukocytosis, no significant electrolyte derangement. Radiographs independently interpreted by me and significant for no lobar opacity. Relatively prominent aortic arch noted. At this time care handed off to oncoming physician pending flu swab and reassessment. DO Stuart: I assumed care of the patient at 7 AM at time of departure previous provider. On my assessment, she states the breathing treatments initially helped but she is starting to feel bad again. She does sound wheezy. She is lying in bed in no distress but is mildly tachypneic with a rate of 26, tachycardic with a heart rate of 120, and O2 saturation on room air is 92%. She denies any history of asthma, COPD, or other pulmonary disease. Labs are reassuring against sepsis/bacterial etiology with a normal white count. She did test positive for flu A, which explains her symptoms. Blood cultures were sent and are pending nonetheless given that she technically meets SIRS criteria based on vitals, though I doubt sepsis. I independently interpreted x-ray prior to radiology read and noted that the patient does not have any large focal consolidation concerning for bacterial pneumonia, but obstruction does have viral pneumonitis. Please see radiology read for final interpretation. I independently interpreted EKG at 7:01 AM and noted sinus tachycardia with a ventricular rate of [address] changes concerning for ischemia. Normal intervals Given the patient is still wheezy, will administer another DuoNeb and assess for further symptomatic improvement. Will also administer IV methylprednisolone in the setting of presumed reactive airway disease. I also administered Tylenol and Toradol for symptomatic improvement of acute viral illness. She felt a lot better after this and was able to ambulate without dropping her O2 saturation. I considered admission given persistent tachycardia and requiring multiple nebulizer treatments, however the patient states that she would like to try going home. Given this, she was provided with inhaler. She was also given prescriptions for Bromfed as well as Zofran and a short course of steroids given her wheezing/superimposed reactive airway disease. Strict return precautions were given as well as instructions for close follow-up with primary care. Patient was discharged after all questions were answered. Procedures <Gerardo Acosta MD - Last Filed: 05/01/24 06:52> Risk/Benefits of Procedure(s) Were Explained: Yes Critical Care <Gerardo Acosta MD - Last Filed: 05/01/24 06:52> Critical Care Time Critical Care Time: Yes Attestation: On 05/01/24, the high probability of a clinically significant, sudden or life threatening deterioration of the following system(s) required my full and direct attention, intervention and personal management. The time I documented below is in addition to time spent performing reported procedures but includes the following listed in this critical care notation. Total Time Total Critical Care Time: 40
[2024-05-01 06:36] LABS: Basophils % 0.6 % (0.1-2.0); Coronavirus 19, PCR Not Detected (NotDetected); Eosinophils # 0.1 K/mm3 (0.0-0.4); Eosinophils % 0.8 % (0.1-12.0); Hematocrit 43.5 % (37.0-47.0); Hemoglobin 14.4 g/dL (12.2-16.2); Influenza B, PCR Not Detected (NotDetected); Lymphocytes % 16.4 % (10-50); Mean Corpuscular HGB Conc 33.1 g/dL (31.8-35.4); Mean Corpuscular Hemoglobin 30.2 pg (27.0-31.2); Mean Corpuscular Volume 91.2 fl (81-99); Mean Platelet Volume 9.9 fl (7.4-10.4); Monocytes # 0.3 K/mm3 (0.1-1.0); Monocytes % 4.8 % (1.7-9.3); Neutrophils # 4.8 K/mm3 (1.8-7.8); Neutrophils % 77.1 % (37.0-80.0); Platelet Count 152 K/mm3 (142-424); Red Blood Count 4.77 M/mm3 (4.20-5.40); Red Cell Distribution Width 13.2 % (11.5-17.5); White Blood Count 6.2 K/mm3 (4.8-10.8)
[2024-05-01 06:37] LABS: Lactate Venous 1.4 mmol/L (0.4-2.0); VBG Base Excess -4.7 mmol/L (-2.4-2.3); VBG HCO3 21.9 mmol/L (23-30); VBG Oxygen Saturation 82.6 % (50-70); VBG PCO2 46.5 mmol/L (35-51); VBG PH 7.29 mmol/L (7.31-7.41); VBG PO2 47.1 mmol/L (28-40); VBG Total CO2 23.3 mmol/L (23-27)
[2024-05-01 06:40] LABS: Albumin Level 5.2 g/dl (3.5-5.0); Chloride 104 mmol/L (98-107); Sodium 140 mmol/L (136-145)
[2024-05-01 06:41] LABS: Potassium 3.7 mmoL/L (3.5-5.1)
[2024-05-01 06:43] LABS: Alanine Aminotransferase 42 U/L (12-78); Albumin/Globulin Ratio 2.3 (1.1-1.8); Alkaline Phosphatase 74 U/L (38-126); Anion Gap 13.7 mEq/L (5-15); Aspartate Amino Transferase 53 U/L (14-36); Bilirubin,Total 0.8 mg/dl (0.2-1.3); Blood Urea Nitrogen 9 mg/dl (7-17); Carbon Dioxide 26 mmol/L (22.0-30.0); Creatinine Clearance Estimated 61 mL/min (50-200); Estimated Glomerular Filt Rate 98 ml/min (>60); GFR (African American) 118 ML/MIN (>60); Globulin 2.3 g/dL (1.3-3.2); Total Protein,Serum 7.5 g/dl (6.3-8.2)
[2024-05-01 06:44] LABS: Calcium 10.5 mg/dl (8.4-10.2); Glucose 121 mg/dl (74-100)
[2024-05-01] MEDS: 0.9 % SODIUM CHLORIDE 1000ML 1,000 ML 999 ML IV (06:46)
--- NOTE | 2024-05-01 07:01 | ECG_ITS ---
APPROVED REPORT Exam: Resting ECG HR:131 bpm ECG Measurements Heart Rate 131 AXES NJ 181 P 60 QRSd 90 QRS -30 QT 386 T 67 QTc 463 Conclusion SINUS TACHYCARDIA INDETERMINATE AXIS PATTERN CONSISTENT WITH PULMONARY DISEASE ABNORMAL ECG UNCONFIRMED REPORT Electronically signed by : JOVANY CHRISTIANSON, 05/03/2024 06:49:03
--- NOTE | 2024-05-01 07:19 | PC.NURSE ---
Rounded on pt, placed back on BP monitoring.
[2024-05-01 07:28] LABS: Influenza A, PCR Detected (NotDetected)
--- NOTE | 2024-05-01 07:29 | PC.NURSE ---
ROUNDED ON THE PT. THE PT VOICES THAT SHE DOES NOT NEED ANYTHING AT THIS TIME. GAVE PT A PILLOW. CALL LIGHT IS WITHIN REACH OF THE PT. IS PRESENT AT THE BEDSIDE.
[2024-05-01 07:51] LABS: HIV Combo NEGATIVE (Negative)
[2024-05-01 07:59] LABS: Hepatitis C Ab Qual. W/ RFX NEGATIVE (Negative)
[2024-05-01] MEDS: KETOROLAC 30MG/ML VIAL 15 MG IV (08:01)
[2024-05-01] MEDS: METHYLPREDNISOLONE SOD SUCC 125MG VIAL 125 MG IV (08:01)
[2024-05-01] MEDS: ACETAMINOPHEN 1,000MG/100ML VIAL 1000 MG IV (08:01)
[2024-05-01] MEDS: IPRATROPIUM/ALBUTEROL 3 ML NEB IH (08:02)
--- NOTE | 2024-05-01 08:13 | PC.NURSE ---
ROUNDED ON THE PT. THE PT VOICES THAT SHE DOES NOT NEED ANYTHING AT THIS TIME. CALL LIGHT IS WITHIN REACH OF THE PT. IS PRESENT AT THE BEDSIDE.
--- NOTE | 2024-05-01 08:44 | PC.NURSE ---
dr maya at bedside to reevaluate pt
--- NOTE | 2024-05-01 08:54 | PC.NURSE ---
WALKED PT BACK FROM THE BATHROOM. O2 WHILE WALKING WAS 93 ON ROOM AIR. ROUNDED ON THE PT. THE PT VOICES THAT SHE DOES NOT NEED ANYTHING AT THIS TIME. CALL LIGHT IS WITHIN REACH OF THE PT. THE PT IS PRESENT AT THE BEDSIDE.
[2024-05-01] MEDS: ALBUTEROL-HFA 90MCG/PUFF INHALER 8GM 2 PUFF IH (09:03)
--- NOTE | 2024-05-01 09:19 | PC.NURSE ---
Ambulated pt in the hallway and lowest sat was 93%. Pt tolerated well with little SOB.
--- NOTE | 2024-05-01 09:20 | PC.NURSE ---
Dr. Davidson at bedside and discussing d/c and POC for home. I reviewed with pt and her spouse d/c instructions and follow up
== END 2024-05-01 09:26 | disposition home or self-care (01) ==
PROVIDERS: Emergency Medicine; Emergency Provider Emergency Medicine; PCP Internal Medicine
DX: J10.1 Influenza due to other identified influenza virus with other respiratory manifestations (principal); R06.2 Wheezing; R06.02 Shortness of breath; R05.9 Cough, unspecified; R52 Pain, unspecified; R50.9 Fever, unspecified
CPT/HCPCS: 71046; 80053; 82803; 85025; 86803; 87040; 87389; 87636; 93005; 96365; 96374; 96375; 99284; J0131; J1885; J2919; J7030; J7620

== ENCOUNTER 2024-05-10 16:38 | Outpatient (CLI) | payer MEDICARE, SELFPAY ==
--- NOTE | 2024-05-10 16:42 | XR_ITS ---
PROCEDURE INFORMATION: Exam: XR Chest Exam date and time: 05/10/2024 4:43 PM Age: 73 years old Clinical indication: Cough; Additional info: Cough. States dx with flu x1 week ago TECHNIQUE: Imaging protocol: Radiologic exam of the chest. Views: 2 views. COMPARISON: CR XR CHEST 2V 05/01/2024 6:37 AM FINDINGS: Lungs: No evidence of airspace infiltrate. No pulmonary edema. Pleural spaces: No visible pleural effusion. No pneumothorax. Heart/Mediastinum: Cardiomediastinal silouhette is within normal limits. Bones/joints: No evidence of acute osseous abnormality. IMPRESSION: No acute findings. No evidence of pneumonia.
== END 2024-05-10 23:59 | disposition home or self-care (01) ==
LOC: RAD 16:40
PROVIDERS: PCP Internal Medicine; Visit Provider Internal Medicine
DX: R06.2 Wheezing (principal); R05.9 Cough, unspecified; J10.1 Influenza due to other identified influenza virus with other respiratory manifestations
CPT/HCPCS: 71046

== ENCOUNTER 2024-05-21 14:31 | Outpatient (CLI) | payer MEDICARE, SELFPAY ==
--- NOTE | 2024-05-21 14:10 | MM_ITS ---
PROCEDURE INFORMATION: Exam: MG Bilateral Screening 3D Mammography Exam date and time: 05/21/2024 2:42 PM Age: 73 years old Clinical indication: Screening examination TECHNIQUE: Imaging protocol: Bilateral Screening tomosynthesis and 2D mammography including computer-aided detection (CAD) when performed. COMPARISON: 1. MG MAMMO SCREENING DIGITAL TOMOSYNTHESIS BILATERAL W CAD 05/11/2021 2:09 PM 2. MG MAMMO SCREENING DIGITAL TOMOSYNTHESIS BILATERAL W CAD 05/02/2019 11:35 AM FINDINGS: MAMMOGRAPHY: Breast composition: The breasts are almost entirely fatty. Mass: None. Architectural distortion: None. Calcifications: No suspicious calcifications. Asymmetric density: None. Skin thickening: None. Axillary adenopathy: None. IMPRESSION: No mammographic evidence of malignancy. Annual screening is recommended unless otherwise clinically indicated. ASSESSMENT: BI-RADS Category 1: Negative.
== END 2024-05-21 23:59 | disposition home or self-care (01) ==
LOC: RAD 14:32
PROVIDERS: PCP Internal Medicine; Visit Provider Internal Medicine
DX: Z12.31 Encounter for screening mammogram for malignant neoplasm of breast (principal)
CPT/HCPCS: 77062; 77063; 77066; 77067; G0279

== ENCOUNTER 2024-08-01 11:45 | Outpatient (CLI) | payer MEDICARE, SELFPAY ==
[2024-08-01 15:47] LABS: Thyroid Stimulating Hormone 0.37 uIU/mL (0.465-4.68)
[2024-08-01 16:06] LABS: Vitamin B12 264 pg/mL (239-931)
[2024-08-01 21:45] LABS: Hemoglobin A1C 4.9 % (4.0-6.0)
== END 2024-08-01 23:59 | disposition home or self-care (01) ==
LOC: LAB.DROPOF 08-02 12:41
PROVIDERS: PCP Internal Medicine; Visit Provider Internal Medicine
DX: G60.9 Hereditary and idiopathic neuropathy, unspecified (principal); R73.9 Hyperglycemia, unspecified; E04.2 Nontoxic multinodular goiter
CPT/HCPCS: 82607; 83036; 84439; 84443

== ENCOUNTER 2024-09-01 18:50 | Emergency (ER) | payer MEDICARE, SELFPAY ==
[2024-09-01 18:55] VITALS: BP 92/60; PULSE 70; RESP 15; TEMP 36.9; O2SAT 94; BMI 31.8
--- NOTE | 2024-09-01 18:56 | CT_ITS ---
PROCEDURE INFORMATION: Exam: CT Maxillofacial Without Contrast Exam date and time: 09/01/2024 7:19 PM Age: 73 years old Clinical indication: Injury or trauma; Additional info: Fall facial trauma forehead R face TECHNIQUE: Imaging protocol: Computed tomography of the face without contrast. Radiation optimization: All CT scans at this facility use at least one of these dose optimization techniques: automated exposure control; mA and/or kV adjustment per patient size (includes targeted exams where dose is matched to clinical indication); or iterative reconstruction. COMPARISON: CT HEAD/BRAIN WO CON 09/01/2024 7:17 PM FINDINGS: Limitations: Limited by artifact arising from metallic dental hardware/dental amalgam. Paranasal sinuses: No air-fluid levels. Orbital cavities: No orbital hemorrhage. Bones: Degenerative change involving the spine. Degenerative change involving the bilateral temporomandibular joints. No acute facial bone fracture. No dislocation. Soft tissues: Right periorbital/frontal scalp soft tissue swelling. IMPRESSION: No acute facial bone fracture.
--- NOTE | 2024-09-01 18:56 | CT_ITS ---
PROCEDURE INFORMATION: Exam: CT Cervical Spine Without Contrast Exam date and time: 09/01/2024 7:21 PM Age: 73 years old Clinical indication: Injury or trauma; Additional info: Fall no midline pain TECHNIQUE: Imaging protocol: Computed tomography of the cervical spine without contrast. Radiation optimization: All CT scans at this facility use at least one of these dose optimization techniques: automated exposure control; mA and/or kV adjustment per patient size (includes targeted exams where dose is matched to clinical indication); or iterative reconstruction. COMPARISON: CT FACIAL BONES WO CON 09/01/2024 7:19 PM FINDINGS: Bones: Mild dextroconvex curvature. Grade 1 anterolisthesis of C4 on C5. Vertebral body heights are preserved. Fjjd-ha-wzlwhkoe degenerative change about the dens. Mild prevertebral osteophytosis. Bilateral facet joint degenerative change. No acute cervical spine fracture. No definite significant central canal stenosis within limitations of technique. Lungs: Lung apices are normal. Pleural spaces: No visible pneumothorax. Thyroid: Enlarged and heterogeneous thyroid gland. Soft tissues: Unremarkable. IMPRESSION: No acute cervical spine fracture.
--- NOTE | 2024-09-01 18:56 | XR_ITS ---
PROCEDURE INFORMATION: Exam: XR Left Wrist Exam date and time: 09/01/2024 7:29 PM Age: 73 years old Clinical indication: Injury or trauma; Fall; Blunt trauma (contusions or hematomas); Wrist; Left; Additional info: Fall deformity TECHNIQUE: Imaging protocol: Radiologic exam of the left wrist. Views: 3 or more views. COMPARISON: CR XR WRIST LT MIN 3V 09/01/2024 7:29 PM FINDINGS: Bones/joints: Mildly displaced and comminuted fracture involving the distal aspect of the radius. There is palmar displacement and angulation of the distal fracture fragment. Soft tissues: Wrist soft tissue swelling. New line IMPRESSION: Comminuted and displaced fracture of the distal radius with palmar displacement and angulation of the distal fracture fragment.
--- NOTE | 2024-09-01 18:56 | XR_ITS ---
PROCEDURE INFORMATION: Exam: XR Left Forearm Exam date and time: 09/01/2024 7:29 PM Age: 73 years old Clinical indication: Injury or trauma; Fall; Blunt trauma (contusions or hematomas); Wrist; Left; Additional info: Fall wrist deformity TECHNIQUE: Imaging protocol: Radiologic exam of the left forearm. Views: 2 views. COMPARISON: CR XR FOREARM LT 2V 09/01/2024 7:29 PM FINDINGS: Bones/joints: Comminuted and displaced fracture involving the distal aspect of the radius with palmar displacement and angulation of the distal fracture fragment. Osteopenia. Degenerative change. Soft tissues: Soft tissue swelling at the distal forearm/wrist. IMPRESSION: Comminuted and displaced fracture of the distal radius.
--- NOTE | 2024-09-01 18:56 | CT_ITS ---
PROCEDURE INFORMATION: Exam: CT Head Without Contrast Exam date and time: 09/01/2024 7:17 PM Age: 73 years old Clinical indication: Injury or trauma; Fall; Blunt trauma (contusions or hematomas); Additional info: Fall, anterior facial trauma TECHNIQUE: Imaging protocol: Computed tomography of the head without contrast. Radiation optimization: All CT scans at this facility use at least one of these dose optimization techniques: automated exposure control; mA and/or kV adjustment per patient size (includes targeted exams where dose is matched to clinical indication); or iterative reconstruction. COMPARISON: No relevant prior studies available. FINDINGS: Brain: Age-related volume loss. Decreased attenuation of the supratentorial white matter is likely secondary to chronic microvascular ischemia. No acute intracranial hemorrhage. No midline shift or significant intracranial mass effect. Cerebral ventricles: No obstructive hydrocephalus. Paranasal sinuses: Visualized sinuses are unremarkable. No fluid levels. Mastoid air cells: Visualized mastoid air cells are well aerated. Bones: No acute calvarial fracture. Facial bones are better evaluated on dedicated exam. Soft tissues: Right periorbital soft tissue swelling. Right frontal scalp soft tissue swelling. IMPRESSION: No acute intracranial abnormality.
--- NOTE | 2024-09-01 18:56 | XR_ITS ---
PROCEDURE INFORMATION: Exam: XR Left Hand Exam date and time: 09/01/2024 7:29 PM Age: 73 years old Clinical indication: Injury or trauma; Fall; Blunt trauma (contusions or hematomas); Hand; Left TECHNIQUE: Imaging protocol: Radiologic exam of the left hand. Views: 3 or more views. COMPARISON: CR XR FOREARM LT 2V 09/01/2024 7:29 PM FINDINGS: Bones/joints: Comminuted and displaced fracture of the distal radius. Osteopenia. Degenerative change. Remainder appears intact. No dislocation. Soft tissues: Wrist soft tissue swelling. IMPRESSION: Comminuted displaced fracture of the distal radius.
--- OUTSIDE RECORDS SUMMARY | 2024-09-01 18:56 | XMS_ITS | Data Portability ---
Author Organization [facility] CARLOS Diaz UPSON CLOSED Address [address] [place] [address] Care Team Providers Care Events Traffic Controller Name Role Phone MALA WEBB Urologist ENZO WRIGHT Referring Provider ENZO WRIGHT Primary Care Provider [phone] ROBERT BOATENG Referring Provider [phone] Assessment Encounter Date Assessment Date Assessment LastModified by Organization Details LastModified Time 05/04/2023 05/04/2023 Patient presented to office today for their Medicare Annual Wellness Visit. Wellness visit Questionnaire was reviewed. Depression screening was negative and no followup plan is needed. Emphasized preventive health measures including fall prevention to help reduce health risks and promote healthy living. [email or web address] Not available 05/03/2023 06:33:00 Plan of Treatment Reminders Order Date Submit Date Provider Last Modified By Organization Details Last Modified Time Details Appointments None recorde d. Lab PTH (parath yroid hormone ), intact + calcium , serum or plasma 2023 025 [email or web address] [facility], [address] [place] [address], [id number], 5 07:45:07 vitamin D, 25-hydr oxy, total, serum 2023 025 [email or web address] [facility], [address] [place] [address], [id number], 5 07:45:07 toxicol ogy screen, urine [address] [facility], [address] [place] [address], [id number], 5 07:45:07 CMP, serum or plasma [address] [facility], [address] [place] [address], [id number], 5 07:45:07 CBC w/ auto diff [address] [facility], [address] [place] [address], [address], 5 07:45:07 lipid panel, serum [address] [facility], [address] [place] [address], [address], 5 07:45:07 TSH, serum, reflex free T4 [address] [facility], [address] [place] [address], [address], 5 07:45:07 toxicol ogy screen, urine 2023 024 [facility], [address] [place] [address], [address], 4 06:49:00 lipid panel, serum 2023 024 [facility], [address] [place] [address], [address], 4 11:25:21 PTH (parath yroid hormone ), intact + calcium , serum or plasma 2023 024 [facility], [address] [place] [address], [address], 4 11:34:47 vitamin D, 25-hydr oxy, total, serum 2023 024 [facility], [address] [place] [address], [address], 4 11:43:00 CMP, serum or plasma 2023 024 [facility], [address] [place] [address], [address], 4 11:25:19 CBC w/ auto diff 2023 024 [email or web address] 3 [facility], [address] [place] [address], [address], 4 08:11:24 hepatit is C liver status biomark er panel, serum 2022 023 [facility], [address] [place] [address], [address], 3 05:09:10 toxicol ogy screen, urine 2022 023 [facility], [address] [place] [address], [address], 3 06:26:20 toxicol ogy screen, urine 2022 024 [facility], [address] [place] [address], [address], 4 09:53:11 lipid panel, serum 2022 024 [facility], [address] [place] [address], [address], 4 11:43:17 PTH (parath yroid hormone ), intact + calcium , serum or plasma 2022 023 [facility], [address] [place] [address], [address], 3 15:08:33 PTH (parath yroid hormone ), intact + calcium , serum or plasma 2022 024 [facility], [address] [place] [address], [address], 4 11:53:55 CMP, serum or plasma 2022 023 [facility], [address] [place] [address], [address], 3 12:57:06 CBC w/ auto diff 2022 023 [facility], [address] [place] [address], [address], 3 12:30:09 CMP, serum or plasma 2022 024 [facility], [address] [place] [address], [address], 4 11:43:15 CBC w/ auto diff 2022 024 [facility], [address] [place] [address], [address], 4 11:10:16 toxicol ogy screen, urine 2022 023 [email or web address] 3 [facility], [address] [place] [address], [address], 3 08:36:06 toxicol ogy screen, urine 2022 023 [email or web address] [facility], [address] [place] [address], [address], 3 07:48:06 lipid panel, serum 2022 023 [email or web address] 3 [facility], [address] [place] [address], [address], 3 08:36:06 vitamin D, 25-hydr oxy, total, serum 2022 023 [email or web address] 3 [facility], [address] [place] [address], [address], 3 08:36:06 PTH (parath yroid hormone ), intact + calcium , serum or plasma 2022 023 [email or web address] 3 [facility], [address] [place] [address], [address], 3 08:36:06 vitamin D, 25-hydr oxy, total, serum 2022 023 RENETTA [facility], [address] [place] [address], [address], 3 15:08:34 PTH (parath yroid hormone ), intact + calcium , serum or plasma [email or web address] [place] [address], [address] [place] [address], [address], 3 07:48:05 CMP, serum or plasma 2022 023 [email or web address] 3 [facility], [address] [place] [address], [address], 3 08:36:05 CBC w/ auto diff 2022 023 [email or web address] 3 [facility], [address] [place] [address], [address], 3 08:36:05 CMP, serum or plasma [email or web address], [address] [place] [address], [address], 3 07:48:05 CBC w/ auto diff [email or web address] [place] [address], [address] [place] [address], [address], 3 07:48:05 Referral gastroe nterolo gist referra l 2023 024 [email or web address] 91 [facility], [address] [facility] [facility] [address], [place], [address], 4 07:52:03 orthope dic surgeon referra l 2023 024 [email or web address] Quinton Ortiz MD, [address] [place], [address], 4 09:55:51 gastroe nterolo gist referra l 2022 023 [email or web address] 91 [facility], [address] [facility], [place] [address], [place], [address], 3 07:51:29 gastroe nterolo gist referra l 2022 023 [email or web address] [facility], [address] [facility] [facility] [address], [place], [address], 3 11:02:52 Procedures None recorde d. Surgeries None recorde d. Imaging None recorde d. Medication Orders gabapen tin 600 mg tablet 2023 024 [facility], [address], [address], 4 11:11:33 alendro leah 70 mg tablet 2023 024 [facility], [address], [address], 4 09:45:56 gabapen tin 600 mg tablet 2023 024 [facility], [address], [address], 4 09:46:06 gabapen tin 600 mg tablet 2022 023 [id number], [address] [place], [address], 11:32:27 gabapen tin 600 mg tablet 2022 023 [id number], [address] [facility] [place], [address], 10:31:45 Patient TargetsNo targets recorded. Patient Instructions Encounter Date Encounter Id Patient Instructions Last Modified By Organization Details Last Modified Time 08/03/2022 [id number] weight managemen t education [email or web address] Not available 08/03/2022 10:31:35 scripts reviewed risks/benefits reviewed high risk meds reviewed check labs continue current medication continue to monitor labs colonoscopy ordered again rtc 3 months with labs and prn [email or web address] Not available 08/03/2022 10:30:37 11/10/2022 [id number] scripts reviewed risks/benefits reviewed high risk meds reviewed labs when fasting continue current medication continue to monitor labs follow up with endocrinology colonoscopy ordered again mammograms rtc 6 months with labs MWV and prn [email or web address] Not available 11/10/2022 11:29:58 05/04/2023 [id number] advance care planning: care instructions [email or web address] Not available 05/04/2023 09:45:40 preventing falls : care instructions [email or web address] Not available 05/04/2023 09:45:40 labs reviewed scripts reviewed risks/benefits reviewed high risk meds reviewed continue current medication continue to monitor labs mammograms ordered again colonoscopy ordered again rtc 6 months with labs and prn [email or web address] Not available 05/03/2023 06:51:52 05/09/2023 [id number] Reviewed and discussed with the patient her x-rays which reveal severe osteoarthritis of the right shoulder. Discussed conservative and surgical options with the patient in detail. Discussed the fact that though most people are better with surgery; some are no better and some are worse. I also discussed the inherent risks and complications such as: , DVT, infection, stiffness, loss of motion and or strength, as well as need for extensive postoperative care with physical therapy. Patient comfortable with plan and wishes to proceed conservatively. She is not interested in arthroplasty at this time. A referral to Dr. Carson was provided to obtain a right shoulder intra-articular steroid injection under fluoroscopy. Recommended OTC liquid gel Ibuprofen. F/U PRN [email or web address] Not available 05/09/2023 11:44:31 11/09/2023 [id number] scripts reviewed risks/benefits reviewed high risk meds reviewed labs were drawn this morning continue current medication continue to monitor labs rtc 6 months with labs MWV and prn [email or web address] Not available 11/09/2023 11:08:32 Reason for Referral Ward Secretary Referral for Screening for malignant neoplasm of colon Referring Physician: Enzo Wright, Internal Medicine, Encounter Date: 08/03/2022 Ward Secretary Referral for Screening for malignant neoplasm of colon Referring Physician: Enzo Wright Internal Medicine, Encounter Date: 11/10/2022 Ward Secretary Referral for Screening for malignant neoplasm of colon Referring Physician: Enzo Wright, Internal Medicine, Encounter Date: 05/04/2023 Orthopedic Surgeon Referral for Pain of right shoulder joint Referring Physician: Enzo Wright, Internal Medicine, Encounter Date: 05/04/2023 Results Created Date Observation Date Name Description Value Unit Range Abnormal Flag Note LastModifiedBy Organization Detail LastModifiedTime 11/11/1911/10/2022 COMPL ETE BLOOD COUNT white blood cells 6.0 10*3/ uL 3.8-10 .8 normal Not Available [facility] [address] [place], [address], 11/10/2022 12:30:09 11/11/19 23 11/10/2022 COMPL ETE BLOOD COUNT red blood cells 4.31 10*6/ uL 3.80-5 .20 normal Not Available [facility] [address] [place], [address], 11/10/2022 12:30:09 11/11/19 23 11/10/2022 COMPL ETE BLOOD COUNT hemoglobin 12.4 g/dL 12.0-1 6.0 normal Not Available [facility] [address] [place] [address], [address], 11/10/2022 12:30:09 11/11/19 23 11/10/2022 COMPL ETE BLOOD COUNT hematocrit 37.0 % 35.0-4 7.0 normal Not Available [facility] [address] [place] [address], [address], 11/10/2022 12:30:11/11/19 23 11/10/2022 COMPL ETE BLOOD COUNT MCV 86 fL 80-100 normal Not Available [facility] [address] [place] [address], [address], 11/10/2022 12:30:11/11/19 23 11/10/2022 COMPL ETE BLOOD COUNT MCH 29 pg 26-35 normal Not Available [facility] [address] [place] [address], [address], 11/10/2022 12:30:11/11/19 23 11/10/2022 COMPL ETE BLOOD COUNT MCHC 34 g/dL 32-36 normal Not Available [facility] [address] [place] [address], [address], 11/10/2022 12:30:11/11/19 23 11/10/2022 COMPL ETE BLOOD COUNT RDW 14.2 % 11.0-1 5.0 normal Not Available [facility] [address] [place] [address], [address], 11/10/2022 12:30:11/11/19 23 11/10/2022 COMPL ETE BLOOD COUNT MPV 7.0 fL 6.2-10 .5 normal Not Available [facility] [address] [place] [address], [address], 11/10/2022 12:30:11/11/19 23 11/10/2022 COMPL ETE BLOOD COUNT platelet count 299 10*3/ uL 130-40 0 normal Not Available [facility] [address] [place] [address], [address], 11/10/2022 12:30:11/11/19 23 11/10/2022 COMPL ETE BLOOD COUNT neutrophil,a bsolute 3.4 10*3/ uL 1.6-8. 4 normal Not Available [facility] [address] [place] [address], [address], 11/10/2022 12:30:11/11/19 23 11/10/2022 COMPL ETE BLOOD COUNT lymphocyte,a bsolute 1.9 10*3/ uL 0.4-5. 1 normal Not Available [facility] [address] [place] [address], [address], 11/10/2022 12:30:11/11/19 23 11/10/2022 COMPL ETE BLOOD COUNT monocyte,abs olute 0.5 10*3/ uL 0.0-1. 2 normal Not Available [facility] [address] [place] [address], [address], 11/10/2022 12:30:11/11/19 23 11/10/2022 COMPL ETE BLOOD COUNT eosinophil,a bsolute 0.1 10*3/ uL 0.0-0. 8 normal Not Available [facility] [address] [place] [address], [address], 11/10/2022 12:30:11/11/19 23 11/10/2022 COMPL ETE BLOOD COUNT basophil,abs olute 0.1 10*3/ uL 0.0-0. 3 normal Not Available [facility] [address] [place] [address], [address], 11/10/2022 12:30:11/11/19 23 11/10/2022 COMPL ETE BLOOD COUNT % neutrophils 57.3 % 42.0-7 8.0 normal Not Available [facility] [address] [place] [address], [address], 11/10/2022 12:30:09 11/11/19 23 11/10/2022 COMPL ETE BLOOD COUNT % lymphocytes 31.6 % 11.0-4 7.0 normal Not Available [facility] [address] [place] [address], [address], 11/10/2022 12:30:11/11/19 23 11/10/2022 COMPL ETE BLOOD COUNT % monocytes 9.0 % 0.0-11 .0 normal Not Available [facility] [address] [place] [address], [address], 11/10/2022 12:30:11/11/19 23 11/10/2022 COMPL ETE BLOOD COUNT % eosinophils 1.1 % 0.0-7. 0 normal Not Available [facility] [address] [place] [address], [address], 11/10/2022 12:30:09 11/11/19 23 11/10/2022 COMPL ETE BLOOD COUNT % basophils 1.0 % 0.0-3. 0 normal Not Available [facility] [address] [place] [address], [address], 11/10/2022 12:30:11/11/19 23 11/10/2022 COMPL ETE BLOOD COUNT nucleated red cells 0.0 % 0.0-0. 9 normal Not Available [facility] [address] [place] [address], [address], 11/10/2022 12:30:11/11/19 23 11/10/2022 COMPL ETE BLOOD COUNT nucleated RBCs, absolute 0.00 10*3/ uL not estab. normal Not Available [facility] [address] [place] [address], [address], 11/10/2022 12:30:11/11/19 23 11/10/2022 COMP. METAB OLIC PANEL glucose 95 mg/dL 74-100 normal Not Available [facility] [address] [place] [address], [address], 11/10/2022 12:57:05 11/11/19 23 11/10/2022 COMP. METAB OLIC PANEL blood urea nitrogen 8 mg/dL 6-20 normal Not Available [facility] [address] [place] [address], [address], 11/10/2022 12:57:05 11/11/19 23 11/10/2022 COMP. METAB OLIC PANEL creatinine 0.59 mg/dL 0.50-0 .95 normal Not Available [facility] [address] [place] [address], [address], 11/10/2022 12:57:05 11/11/19 23 11/10/2022 COMP. METAB OLIC PANEL BUN/creatini ne ratio 14 (calc ) 10-20 normal Not Available [facility] [address] [place] [address], [address], 11/10/2022 12:57:05 11/11/19 23 11/10/2022 COMP. METAB OLIC PANEL sodium 141 mmol/ L 136-14 5 normal Not Available [facility] [address] [place] [address], [address], 11/10/2022 12:57:05 11/11/19 23 11/10/2022 COMP. METAB OLIC PANEL potassium 3.9 mmol/ L 3.4-5. 0 normal Not Available [facility] [address] [place] [address], [address], 11/10/2022 12:57:05 11/11/19 23 11/10/2022 COMP. METAB OLIC PANEL chloride 104 mmol/ L 98-107 normal Not Available [facility] [address] [place] [address], [address], 11/10/2022 12:57:05 11/11/19 23 11/10/2022 COMP. METAB OLIC PANEL carbon dioxide 27 mmol/ L 22-31 normal Not Available [facility] [address] [place] [address], [address], 11/10/2022 12:57:05 11/11/19 23 11/10/2022 COMP. METAB OLIC PANEL anion gap 10 (calc ) 7-25 normal Not Available [facility] [address] [place] [address], [address], 11/10/2022 12:57:05 11/11/19 23 11/10/2022 COMP. METAB OLIC PANEL calcium 10.9 mg/dL 8.6-10 .2 high Not Available [facility] [address] [place] [address], [address], 11/10/2022 12:57:05 11/11/19 23 11/10/2022 COMP. METAB OLIC PANEL total protein 7.5 g/dL 6.4-8. 3 normal Not Available [facility] [address] [place] [address], [address], 11/10/2022 12:57:05 11/11/19 23 11/10/2022 COMP. METAB OLIC PANEL albumin 4.2 g/dL 3.5-5. 2 normal Not Available [facility] [address] [place] [address], [address], 11/10/2022 12:57:05 11/11/19 23 11/10/2022 COMP. METAB OLIC PANEL globulin 3.3 1.5-4. 5 normal Not Available [facility] [address] [place] [address], [address], 11/10/2022 12:57:05 11/11/19 23 11/10/2022 COMP. METAB OLIC PANEL albumin/glob ulin ratio 1.3 (calc ) 1.1-2. 5 normal Not Available [facility] [address] [place] [address], [address], 11/10/2022 12:57:05 11/11/19 23 11/10/2022 COMP. METAB OLIC PANEL bilirubin, total 0.5 mg/dL 0.1-1. 2 normal Not Available [facility] [address] [place] [address], [address], 11/10/2022 12:57:05 11/11/19 23 11/10/2022 COMP. METAB OLIC PANEL alkaline phosphatase 94 U/L 30-121 normal Not Available [facility] [address] [place] [address], [address], 11/10/2022 12:57:05 11/11/19 23 11/10/2022 COMP. METAB OLIC PANEL AST 32 U/L 0-32 normal Not Available [facility] [address] [place] [address], [address], 11/10/2022 12:57:05 11/11/19 23 11/10/2022 COMP. METAB OLIC PANEL ALT 25 U/L 0-33 normal Not Available [facility] [address] [place] [address], [address], 11/10/2022 12:57:05 11/11/19 23 11/10/2022 COMP. METAB OLIC PANEL GFR 95 >= 60 normal NOT E New calcu latio n for GFR (CKD- EPI 2020) is formu lated witho ut race adjus tment facto rs at the recom menda tion of the Aneudy [place] y Moe [facility] and Ammyrna rodríguez [facility] . This calcu latio n has not been valid ated in pregn ant women . For pedia tric patie nts refer to https ://jose verde.jayden garcia.o rg/pr ofess ional s/KDO QI/gf r_cal culat orPed Not Available [facility] [address] [place] [address], [address], 11/10/2022 12:57:05 11/11/19 23 11/10/2022 PTH, INTAC T WITH CA PTH, intact 75.0 pg/mL 15.0-6 5.0 high INTER PRETI VE GUIDE ===== ===== ===== ===== ===== ===== ===== ===== ===== ===== ===== === PTH CALCI UM CONDI TION ===== ===== ===== ===== ===== ===== ===== ===== ===== ===== ===== = Brooke l Brooke l Brooke l Parat hyroi d _ Low or Low Hypop kong yroid ism Low Brooke l _ Brooke l or High Prima ry Hyper parat hyroi dism High __ High Brooke l or Secon andrea Hyper parat hyroi dism Low __ High High Terti katerin Hyper parat hyroi dism __ Low or High Non-P kong yroid Hyper calce salima Low Brooke l ===== ===== ===== ===== ===== ===== ===== ===== ===== ===== ===== ==== Not Available [facility] [address] [place] [address], [address], 11/10/2022 16:04:18 11/11/19 23 11/10/2022 PTH, INTAC T WITH CA calcium 10.6 mg/dL 8.6-10 .2 high Not Available [facility] [address] [place] [address], [address], 11/10/2022 16:04:18 11/11/19 23 11/10/2022 VITAM IN D 25-OH vitamin D 25-oh, total 20 NG/mL >=30 NG/mL abnormal Not Available [facility] [address] [place] [address], [address], 11/10/2022 15:08:34 11/11/19 23 11/11/2022 MAI FIBRO SURE mai fibrosis score -1.303 normal Not Available [facility] [address] [place] [address], [address], 11/11/2022 05:45:29 11/11/19 23 11/11/2022 MAI FIBRO SURE interpretati on SEE BELOW normal NAFLD Fibro sis Score -1.45 5 to 0.676 : Indet ermin ate proba bilit y of signi fican t fibro sis. Refer ence: Eliane lin P, Josie JM, May marie G, Concepcion grady E, Jose e J, Jennifer mantilla GC, Luis s F, Sakse na S, Carson DA, et al. The NAFLD fibro sis score : a nonin vasiv e syste m that ident ifies liver fibro sis in patie nts with NAFLD . HEPAT OLOGY 2007; 45:84 6-854 . If fasti ng condi tions were not met, use cauti on when inter preti ng the gluco se test resul t and the NAFLD Fibro sis Score . Not Available [facility] [address] [place] [address], [address], 11/11/2022 05:45:29 11/11/19 23 11/11/2022 MAI FIBRO SURE glucose 90 mg/dL 65-99 normal Fasti ng refer ence inter laurie Not Available [facility] [address] [place] [address], [address], 11/11/2022 05:45:29 11/11/19 23 11/11/2022 MAI FIBRO SURE AST 30 U/L 10-35 normal Not Available [facility] [address] [place] [address], [address], 11/11/2022 05:45:29 11/11/1911/11/2022 MAI FIBRO SURE ALT 23 U/L 6-29 normal Not Available [facility] [address] [place] [address], [address], 11/11/2022 05:45:29 11/11/19 23 11/11/2022 MAI FIBRO SURE platelet count 296 thous and/u L 140-40 0 normal Not Available [facility] [address] [place] [address], [address], 11/11/2022 05:45:29 11/11/19 23 11/11/2022 MAI FIBRO SURE albumin 4.2 g/dL 3.6-5. 1 normal Not Available [facility] [address] [place] [address], [address], 11/11/2022 05:45:29 11/11/1911/11/2022 MAI FIBRO SURE calculated BMI 32.3 normal Not Available [facility] [address] [place] [address], [address], 11/11/2022 05:45:29 11/11/19 23 11/11/2022 URINE DRUG SCREE N amphetamines NEGATI VE NG/mL <500 normal Not Available [facility] [address] [place] [address], [address], 11/11/2022 06:26:20 11/11/19 23 11/11/2022 URINE DRUG SCREE N barbiturates NEGATI VE NG/mL <300 normal Not Available [facility] [address] [place] [address], [address], 11/11/2022 06:26:20 11/11/19 23 11/11/2022 URINE DRUG SCREE N benzodiazepi don NEGATI VE NG/mL <100 normal Not Available [facility] [address] [place] [address], [address], 11/11/2022 06:26:20 11/11/19 23 11/11/2022 URINE DRUG SCREE N marijuana metabolite NEGATI VE NG/mL <20 normal Not Available [facility] [address] [place] [address], [address], 11/11/2022 06:26:20 11/11/19 23 11/11/2022 URINE DRUG SCREE N cocaine metabolite NEGATI VE NG/mL <150 normal Not Available [facility] [facility] [address] [place] [address], [phone], 11/11/2022 06:26:20 11/11/19 23 11/11/2022 URINE DRUG SCREE N methadone metabolite NEGATI VE NG/mL <100 normal Not Available [facility] [address] [place] [address], [phone], 11/11/2022 06:26:20 11/11/19 23 11/11/2022 URINE DRUG SCREE N opiates NEGATI VE NG/mL <100 normal Not Available [facility] [address] [place] [address], [phone], 11/11/2022 06:26:20 11/11/19 23 11/11/2022 URINE DRUG SCREE N oxycodone NEGATI VE NG/mL <100 normal Not Available [facility] [address] [place] [address], [phone], 11/11/2022 06:26:20 11/11/19 23 11/11/2022 URINE DRUG SCREE N phencyclidin e NEGATI VE NG/mL <25 normal Not Available [facility] [address] [place] [address], [phone], 11/11/2022 06:26:20 11/11/19 23 11/11/2022 URINE DRUG SCREE N creatinine 85.2 mg/dL > or = 20.0 normal Not Available [facility] [address] [place] [address], [address], 11/11/2022 06:26:20 11/11/19 23 11/11/2022 URINE DRUG SCREE N specific gravity 1.015 > or = 1.003 normal Not Available [facility] [address] [place] [address], [phone], 11/11/2022 06:26:20 11/11/19 23 11/11/2022 URINE DRUG SCREE N pH 5.3 4.5-9. 0 normal Not Available [facility] [address] [place] [address], [phone], 11/11/2022 06:26:20 11/11/19 23 11/11/2022 URINE DRUG SCREE N oxidant NEGATI VE mcg/m L <200 normal Not Available [facility] [address] [place] [address], [address], 11/11/2022 06:26:20 11/11/19 23 11/11/2022 URINE DRUG SCREE N comment SEE BELOW normal This drug testi ng is for medic al treat ment only. Jacquelin sis was perfo rmed as non-f orens ic testi ng and these resul ts shoul d be used only by healt hcare provi ders to rende r diagn osis or treat ment, or to monit or progr ess of medic al condi tions . Healt hcare Provi ders needi ng Inter preta tion mehdi tance , pleas e conta ct us at 1.877 .40.R XTOX (1.87 [phone] ) M-F, 8am to 10pm EST Not Available [facility] [address] [place] [address], [phone], 11/11/2022 06:26:20 05/02/19 24 05/02/2023 COMPL ETE BLOOD COUNT white blood cells 4.2 10*3/ uL 3.8-10 .8 normal Not Available [facility] [address] [place] [address], [address], 05/02/2023 11:10:15 05/02/19 24 05/02/2023 COMPL ETE BLOOD COUNT red blood cells 5.04 10*6/ uL 3.80-5 .20 normal Not Available [facility] [address] [place] [address], [address], 05/02/2023 11:10:15 05/02/19 24 05/02/2023 COMPL ETE BLOOD COUNT hemoglobin 14.5 g/dL 12.0-1 6.0 normal Not Available [facility] [address] [place] [address], [address], 05/02/2023 11:10:15 05/02/19 24 05/02/2023 COMPL ETE BLOOD COUNT hematocrit 42.8 % 35.0-4 7.0 normal Not Available [facility] [address] [place] [address], [address], 05/02/2023 11:10:15 05/02/19 24 05/02/2023 COMPL ETE BLOOD COUNT MCV 85 fL 80-100 normal Not Available [facility] [address] [place] [address], [phone], 05/02/2023 11:10:15 05/02/19 24 05/02/2023 COMPL ETE BLOOD COUNT MCH 29 pg 26-35 normal Not Available [facility] [address] [place] [address], [phone], 05/02/2023 11:10:15 05/02/19 24 05/02/2023 COMPL ETE BLOOD COUNT MCHC 34 g/dL 32-36 normal Not Available [facility] [address] [place] [address], [address], 05/02/2023 11:10:15 05/02/19 24 05/02/2023 COMPL ETE BLOOD COUNT RDW 14.4 % 11.0-1 5.0 normal Not Available [facility] [address] [place] [address], [phone], 05/02/2023 11:10:15 05/02/19 24 05/02/2023 COMPL ETE BLOOD COUNT MPV 7.6 fL 6.2-10 .5 normal Not Available [facility] [address] [place] [address], [phone], 05/02/2023 11:10:15 05/02/19 24 05/02/2023 COMPL ETE BLOOD COUNT platelet count 207 10*3/ uL 150-40 0 normal Not Available [facility] [address] [place] [address], [address], 05/02/2023 11:10:15 05/02/19 24 05/02/2023 COMPL ETE BLOOD COUNT neutrophil,a bsolute 2.4 10*3/ uL 1.6-8. 4 normal Not Available [facility] [address] [place] [address], [phone], 05/02/2023 11:10:15 05/02/19 24 05/02/2023 COMPL ETE BLOOD COUNT lymphocyte,a bsolute 1.2 10*3/ uL 0.4-5. 1 normal Not Available [facility] [address] [place] [address], [phone], 05/02/2023 11:10:15 05/02/19 24 05/02/2023 COMPL ETE BLOOD COUNT monocyte,abs olute 0.4 10*3/ uL 0.0-1. 2 normal Not Available [facility] [address] [place] [address], [address], 05/02/2023 11:10:15 05/02/19 24 05/02/2023 COMPL ETE BLOOD COUNT eosinophil,a bsolute 0.1 10*3/ uL 0.0-0. 8 normal Not Available [facility] [address] [place] [address], [address], 05/02/2023 11:10:15 05/02/19 24 05/02/2023 COMPL ETE BLOOD COUNT basophil,abs olute 0.1 10*3/ uL 0.0-0. 3 normal Not Available [facility] [address] [place] [address], [address], 05/02/2023 11:10:15 05/02/19 24 05/02/2023 COMPL ETE BLOOD COUNT % neutrophils 58.8 % 42.0-7 8.0 normal Not Available [facility] [address] [place] [address], [phone], 05/02/2023 11:10:15 05/02/19 24 05/02/2023 COMPL ETE BLOOD COUNT % lymphocytes 28.4 % 11.0-4 7.0 normal Not Available [facility] [address] [place] [address], [address], 05/02/2023 11:10:15 05/02/19 24 05/02/2023 COMPL ETE BLOOD COUNT % monocytes 8.8 % 0.0-11 .0 normal Not Available [facility] [address] [place] [address], [address], 05/02/2023 11:10:15 05/02/19 24 05/02/2023 COMPL ETE BLOOD COUNT % eosinophils 2.8 % 0.0-7. 0 normal Not Available [facility] [address] [place] [address], [address], 05/02/2023 11:10:15 05/02/19 24 05/02/2023 COMPL ETE BLOOD COUNT % basophils 1.2 % 0.0-3. 0 normal Not Available [facility] [address] [place] [address], [address], 05/02/2023 11:10:15 05/02/19 24 05/02/2023 COMPL ETE BLOOD COUNT nucleated red cells 0.2 % 0.0-0. 9 normal Not Available [facility] [address] [place] [address], [address], 05/02/2023 11:10:15 05/02/19 24 05/02/2023 COMPL ETE BLOOD COUNT nucleated RBCs, absolute 0.01 10*3/ uL not estab. normal Not Available [facility] [address] [place] [address], [address], 05/02/2023 11:10:15 05/02/19 24 05/02/2023 COMP. METAB OLIC PANEL glucose 94 mg/dL 74-100 normal Not Available [facility] [address] [place] [address], [address], 05/02/2023 11:43:15 05/02/19 24 05/02/2023 COMP. METAB OLIC PANEL blood urea nitrogen 13 mg/dL 6-20 normal Not Available [facility] [address] [place] [address], [address], 05/02/2023 11:43:15 05/02/19 24 05/02/2023 COMP. METAB OLIC PANEL creatinine 0.55 mg/dL 0.50-0 .95 normal Not Available [facility] [address] [place] [address], [address], 05/02/2023 11:43:15 05/02/19 24 05/02/2023 COMP. METAB OLIC PANEL BUN/creatini ne ratio 24 (calc ) 10-20 high Not Available [facility] [address] [place] [address], [address], 05/02/2023 11:43:15 05/02/19 24 05/02/2023 COMP. METAB OLIC PANEL sodium 142 mmol/ L 136-14 5 normal Not Available [facility] [address] [place] [address], [address], 05/02/2023 11:43:15 05/02/19 24 05/02/2023 COMP. METAB OLIC PANEL potassium 4.3 mmol/ L 3.4-5. 0 normal Not Available [facility] [address] [place] [address], [address], 05/02/2023 11:43:15 05/02/19 24 05/02/2023 COMP. METAB OLIC PANEL chloride 104 mmol/ L 98-107 normal Not Available [facility] [address] [place] [address], [address], 05/02/2023 11:43:15 05/02/19 24 05/02/2023 COMP. METAB OLIC PANEL carbon dioxide 29 mmol/ L 22-31 normal Not Available [facility] [address] [place] [address], [address], 05/02/2023 11:43:15 05/02/19 24 05/02/2023 COMP. METAB OLIC PANEL anion gap 9 (calc ) 7-25 normal Not Available [facility] [address] [place] [address], [address], 05/02/2023 11:43:15 05/02/19 24 05/02/2023 COMP. METAB OLIC PANEL calcium 10.6 mg/dL 8.6-10 .2 high Not Available [facility] [address] [place] [address], [address], 05/02/2023 11:43:15 05/02/19 24 05/02/2023 COMP. METAB OLIC PANEL total protein 7.5 g/dL 6.4-8. 3 normal Not Available [facility] [address] [place] [address], [address], 05/02/2023 11:43:15 05/02/19 24 05/02/2023 COMP. METAB OLIC PANEL albumin 4.5 g/dL 3.5-5. 2 normal Not Available [facility] [address] [place] [address], [address], 05/02/2023 11:43:15 05/02/19 24 05/02/2023 COMP. METAB OLIC PANEL globulin 3.0 1.5-4. 5 normal Not Available [facility] [address] [place] [address], [address], 05/02/2023 11:43:15 05/02/19 24 05/02/2023 COMP. METAB OLIC PANEL albumin/glob ulin ratio 1.5 (calc ) 1.1-2. 5 normal Not Available [facility] [address] [place] [address], [address], 05/02/2023 11:43:15 05/02/19 24 05/02/2023 COMP. METAB OLIC PANEL bilirubin, total 0.8 mg/dL 0.1-1. 2 normal Not Available [facility] [address] [place] [address], [address], 05/02/2023 11:43:15 05/02/19 24 05/02/2023 COMP. METAB OLIC PANEL alkaline phosphatase 87 U/L 30-121 normal Not Available [facility] [address] [place] [address], [address], 05/02/2023 11:43:15 05/02/19 24 05/02/2023 COMP. METAB OLIC PANEL AST 39 U/L 0-32 high Not Available [facility] [address] [place] [address], [address], 05/02/2023 11:43:15 05/02/19 24 05/02/2023 COMP. METAB OLIC PANEL ALT 38 U/L 0-33 high Not Available [facility] [address] [place] [address], [phone], 05/02/2023 11:43:15 05/02/19 24 05/02/2023 COMP. METAB OLIC PANEL GFR 96 >= 60 normal NOT E New calcu latio n for GFR (CKD- EPI 2020) is formu lated witho ut race adjus tment facto rs at the recom menda tion of the Natio nal Kidne y Found ation and Ameri can Socie ty of Nephr ology . This calcu latio n has not been valid ated in pregn ant women . For pedia tric patie nts refer to https :[email or web address] verde.jayden [email or web address] cecy/len rojo s/LIVIAO QI/gf r_cal culat orPed Not Available [facility] [address] [place] [address], [address], 05/02/2023 11:43:15 05/02/19 24 05/02/2023 LIPID PROFI LE HDL cholesterol 66 mg/dL 50-242 normal Not Available [facility] [address] [place] [address], [address], 05/02/2023 11:43:17 05/02/19 24 05/02/2023 LIPID PROFI LE triglyceride s 135 mg/dL 0-149 normal TRIGL YCERI DE RANGE S BROOKE L: < 150 BORDE RLINE HIGH: 150 - 199 HIGH: 200 - 499 VERY HIGH: > OR = 500 Not Available [facility] [address] [place] [address], [address], 05/02/2023 11:43:17 05/02/19 24 05/02/2023 LIPID PROFI LE cholesterol 154 mg/dL 0-199 normal PILO STERO L (TOTA L) RANGE S LEONA ABLE: < 200 BORDE RLINE : 200 - 239 HIGHE R RISK: > 239 Not Available [facility] [address] [place] [address], [address], 05/02/2023 11:43:17 05/02/19 24 05/02/2023 LIPID PROFI LE LDL cholesterol 61 mg/dL _(mildred c) 0-99 normal LDL PILO STERO L RANGE S OPTIM AL: < 100 NEAR/ ABOVE OPTIM AL: 100 - 129 BORDE RLINE HIGH: 130 - 159 HIGH: 160 - 189 VERY HIGH: > OR = 190 Not Available [facility] [address] [place] [address], [place], [address], 05/02/2023 11:43:17 05/02/19 24 05/02/2023 PTH, INTAC T WITH CA PTH, intact 65.0 pg/mL 15.0-6 5.0 normal INTER PRETI VE GUIDE ===== ===== ===== ===== ===== ===== ===== ===== ===== ===== ===== === PTH CALCI UM CONDI TION ===== ===== ===== ===== ===== ===== ===== ===== ===== ===== ===== = Brooke l Brooke l Brooke l Parat hyroi d _ Low or Low Hypop kong yroid ism Low Brooke l _ Brooke l or High Prima ry Hyper parat hyroi dism High __ High Brooke l or Secon andrea Hyper parat hyroi dism Low __ High High Terti katerin Hyper parat hyroi dism __ Low or High Non-P kong yroid Hyper calce salima Low Brooke l ===== ===== ===== ===== ===== ===== ===== ===== ===== ===== ===== ==== Not Available [facility] [address] [place] [address], [phone], 05/02/2023 11:56:57 05/02/19 24 05/02/2023 PTH, INTAC T WITH CA calcium 10.7 mg/dL 8.6-10 .2 high Not Available [facility] [address] [place] [address], [address], 05/02/2023 11:56:57 05/02/19 24 05/03/2023 URINE DRUG SCREE N amphetamines NEGATI VE NG/mL <500 normal Not Available [facility] [address] [place] [address], [address], 05/03/2023 09:53:11 05/02/19 24 05/03/2023 URINE DRUG SCREE N barbiturates NEGATI VE NG/mL <300 normal Not Available [facility] [address] [place] [address], [address], 05/03/2023 09:53:11 05/02/19 24 05/03/2023 URINE DRUG SCREE N benzodiazepi don NEGATI VE NG/mL <100 normal Not Available [facility] [address] [place] [address], [address], 05/03/2023 09:53:11 05/02/19 24 05/03/2023 URINE DRUG SCREE N marijuana metabolite NEGATI VE NG/mL <20 normal Not Available [facility] [address] [place] [address], [address], 05/03/2023 09:53:11 05/02/19 24 05/03/2023 URINE DRUG SCREE N cocaine metabolite NEGATI VE NG/mL <150 normal Not Available [facility] [address] [place] [address], [address], 05/03/2023 09:53:11 05/02/19 24 05/03/2023 URINE DRUG SCREE N methadone metabolite NEGATI VE NG/mL <100 normal Not Available [facility] [address] [place] [address], [address], 05/03/2023 09:53:11 05/02/19 24 05/03/2023 URINE DRUG SCREE N opiates NEGATI VE NG/mL <100 normal Not Available [facility] [address] [place] [address], [address], 05/03/2023 09:53:11 05/02/19 24 05/03/2023 URINE DRUG SCREE N oxycodone NEGATI VE NG/mL <100 normal Not Available [facility] [address] [place] [address], [address], 05/03/2023 09:53:11 05/02/19 24 05/03/2023 URINE DRUG SCREE N phencyclidin e NEGATI VE NG/mL <25 normal Not Available [facility] [address] [place] [address], [address], 05/03/2023 09:53:11 05/02/19 24 05/03/2023 URINE DRUG SCREE N creatinine 74.9 mg/dL > or = 20.0 normal Not Available [facility] [address] [place] [address], [address], 05/03/2023 09:53:11 05/02/19 24 05/03/2023 URINE DRUG SCREE N specific gravity 1.019 > or = 1.003 normal Not Available [facility] [address] [place] [address], [address], 05/03/2023 09:53:11 05/02/19 24 05/03/2023 URINE DRUG SCREE N pH 6.2 4.5-9. 0 normal Not Available [facility] [address] [place] [address], [address], 05/03/2023 09:53:11 05/02/19 24 05/03/2023 URINE DRUG SCREE N oxidant NEGATI VE mcg/m L <200 normal Not Available [facility] [address] [place] [address], [address], 05/03/2023 09:53:11 05/02/19 24 05/03/2023 URINE DRUG SCREE N comment SEE BELOW normal This drug testi ng is for medic al treat ment only. Jacquelin sis was perfo rmed as non-f orens ic testi ng and these resul ts shoul d be used only by healt hcare provi ders to rende r diagn osis or treat ment, or to monit or progr ess of medic al condi tions . Healt hcare Provi ders needi ng Inter preta tion mehdi tance , pleas e conta ct us at 1.877 .40.R XTOX (1.87 [phone] .[phone] ) M-F, 8am to 10pm EST Not Available [facility] [place], [address], 05/03/2023 09:53:11 11/09/19 24 11/09/2023 COMPL ETE BLOOD COUNT white blood cells 4.0 10*3/ uL 3.8-10 .8 normal Not Available [facility] [place], [address], 11/09/2023 10:58:07 11/09/19 24 11/09/2023 COMPL ETE BLOOD COUNT red blood cells 4.76 10*6/ uL 3.80-5 .20 normal Not Available [facility] [address] [place] [address], [address], 11/09/2023 10:58:07 11/09/19 24 11/09/2023 COMPL ETE BLOOD COUNT hemoglobin 14.6 g/dL 12.0-1 6.0 normal Not Available [facility] [address] [place] [address], [address], 11/09/2023 10:58:07 11/09/19 24 11/09/2023 COMPL ETE BLOOD COUNT hematocrit 41.3 % 35.0-4 7.0 normal Not Available [facility] [address] [place] [address], [address], 11/09/2023 10:58:07 11/09/19 24 11/09/2023 COMPL ETE BLOOD COUNT MCV 87 fL 80-100 normal Not Available [facility] [address] [place] [address], [address], 11/09/2023 10:58:07 11/09/19 24 11/09/2023 COMPL ETE BLOOD COUNT MCH 31 pg 26-35 normal Not Available [facility] [address] [place] [address], [address], 11/09/2023 10:58:07 11/09/19 24 11/09/2023 COMPL ETE BLOOD COUNT MCHC 35 g/dL 32-36 normal Not Available [facility] [address] [place] [address], [address], 11/09/2023 10:58:07 11/09/19 24 11/09/2023 COMPL ETE BLOOD COUNT RDW 13.8 % 11.0-1 5.0 normal Not Available [facility] [address] [place] [address], [address], 11/09/2023 10:58:07 11/09/19 24 11/09/2023 COMPL ETE BLOOD COUNT MPV 7.8 fL 6.2-10 .5 normal Not Available [facility] [address] [place] [address], [address], 11/09/2023 10:58:07 11/09/19 24 11/09/2023 COMPL ETE BLOOD COUNT platelet count 186 10*3/ uL 150-40 0 normal Not Available [facility] [address] [place] [address], [address], 11/09/2023 10:58:07 11/09/19 24 11/09/2023 COMPL ETE BLOOD COUNT neutrophil,a bsolute 2.3 10*3/ uL 1.6-8. 4 normal Not Available [facility] [address] [place] [address], [address], 11/09/2023 10:58:07 11/09/19 24 11/09/2023 COMPL ETE BLOOD COUNT lymphocyte,a bsolute 1.3 10*3/ uL 0.4-5. 1 normal Not Available [facility] [address] [place] [address], [address], 11/09/2023 10:58:07 11/09/19 24 11/09/2023 COMPL ETE BLOOD COUNT monocyte,abs olute 0.2 10*3/ uL 0.0-1. 2 normal Not Available [facility] [address] [place] [address], [address], 11/09/2023 10:58:07 11/09/19 24 11/09/2023 COMPL ETE BLOOD COUNT eosinophil,a bsolute 0.1 10*3/ uL 0.0-0. 8 normal Not Available [facility] [address] [place] [address], [address], 11/09/2023 10:58:07 11/09/19 24 11/09/2023 COMPL ETE BLOOD COUNT basophil,abs olute 0.1 10*3/ uL 0.0-0. 3 normal Not Available [facility] [address] [place] [address], [address], 11/09/2023 10:58:07 11/09/19 24 11/09/2023 COMPL ETE BLOOD COUNT % neutrophils 59.2 % 42.0-7 8.0 normal Not Available [facility] [address] [place] [address], [address], 11/09/2023 10:58:07 11/09/19 24 11/09/2023 COMPL ETE BLOOD COUNT % lymphocytes 32.1 % 11.0-4 7.0 normal Not Available [facility] [address] [place] [address], [address], 11/09/2023 10:58:07 11/09/19 24 11/09/2023 COMPL ETE BLOOD COUNT % monocytes 5.2 % 0.0-11 .0 normal Not Available [facility] [address] [place] [address], [address], 11/09/2023 10:58:07 11/09/19 24 11/09/2023 COMPL ETE BLOOD COUNT % eosinophils 2.2 % 0.0-7. 0 normal Not Available [facility] [address] [place] [address], [address], 11/09/2023 10:58:07 11/09/19 24 11/09/2023 COMPL ETE BLOOD COUNT % basophils 1.3 % 0.0-3. 0 normal Not Available [facility] [address] [place] [address], [address], 11/09/2023 10:58:07 11/09/19 24 11/09/2023 COMPL ETE BLOOD COUNT nucleated red cells 0.1 % 0.0-0. 9 normal Not Available [facility] [address] [place] [address], [address], 11/09/2023 10:58:07 11/09/19 24 11/09/2023 COMPL ETE BLOOD COUNT nucleated RBCs, absolute 0.00 10*3/ uL not estab. normal Not Available [facility] [address] [place] [address], [address], 11/09/2023 10:58:07 11/09/19 24 11/09/2023 COMP. METAB OLIC PANEL glucose 126 mg/dL 74-100 high Not Available [facility] [address] [place] [address], [address], 11/09/2023 11:25:19 11/09/19 24 11/09/2023 COMP. METAB OLIC PANEL blood urea nitrogen 14 mg/dL 6-20 normal Not Available [facility] [address] [place] [address], [address], 11/09/2023 11:25:19 11/09/19 24 11/09/2023 COMP. METAB OLIC PANEL creatinine 0.60 mg/dL 0.50-0 .95 normal Not Available [facility] [address] [place] [address], [address], 11/09/2023 11:25:19 11/09/19 24 11/09/2023 COMP. METAB OLIC PANEL BUN/creatini ne ratio 23 (calc ) 10-20 high Not Available [facility] [address] [place] [address], [address], 11/09/2023 11:25:19 11/09/19 24 11/09/2023 COMP. METAB OLIC PANEL sodium 143 mmol/ L 136-14 5 normal Not Available [facility] [address] [place] [address], [phone], 11/09/2023 11:25:19 11/09/19 24 11/09/2023 COMP. METAB OLIC PANEL potassium 4.1 mmol/ L 3.4-5. 0 normal Not Available [facility] [address] [place] [address], [phone], 11/09/2023 11:25:19 11/09/19 24 11/09/2023 COMP. METAB OLIC PANEL chloride 105 mmol/ L 98-107 normal Not Available [facility] [address] [place] [address], [phone], 11/09/2023 11:25:19 11/09/19 24 11/09/2023 COMP. METAB OLIC PANEL carbon dioxide 29 mmol/ L 22-31 normal Not Available [facility] [address] [place] [address], [phone], 11/09/2023 11:25:19 11/09/19 24 11/09/2023 COMP. METAB OLIC PANEL anion gap 9 (calc ) 7-25 normal Not Available [facility] [facility] [address] [place] [address], [phone], 11/09/2023 11:25:19 11/09/19 24 11/09/2023 COMP. METAB OLIC PANEL calcium 10.6 mg/dL 8.6-10 .2 high Not Available [facility] [address] [place] [address], [phone], 11/09/2023 11:25:19 11/09/19 24 11/09/2023 COMP. METAB OLIC PANEL total protein 7.4 g/dL 6.4-8. 3 normal Not Available [facility] [address] [place] [address], [phone], 11/09/2023 11:25:19 11/09/19 24 11/09/2023 COMP. METAB OLIC PANEL albumin 4.5 g/dL 3.5-5. 2 normal Not Available [facility] [address] [place] [address], [phone], 11/09/2023 11:25:19 11/09/19 24 11/09/2023 COMP. METAB OLIC PANEL globulin 2.9 1.5-4. 5 normal Not Available [facility] [address] [place] [address], [phone], 11/09/2023 11:25:19 11/09/19 24 11/09/2023 COMP. METAB OLIC PANEL albumin/glob ulin ratio 1.6 (calc ) 1.1-2. 5 normal Not Available [facility] [address] [place] [address], [phone], 11/09/2023 11:25:19 11/09/19 24 11/09/2023 COMP. METAB OLIC PANEL bilirubin, total 0.8 mg/dL 0.1-1. 2 normal Not Available [facility] [address] [place] [address], [phone], 11/09/2023 11:25:19 11/09/19 24 11/09/2023 COMP. METAB OLIC PANEL alkaline phosphatase 75 U/L 30-121 normal Not Available [facility] [address] [place] [address], [phone], 11/09/2023 11:25:19 11/09/19 24 11/09/2023 COMP. METAB OLIC PANEL AST 29 U/L 0-32 normal Not Available [facility] [address] [place] [address], [phone], 11/09/2023 11:25:19 11/09/19 24 11/09/2023 COMP. METAB OLIC PANEL ALT 33 U/L 0-33 normal Not Available [facility] [address] [place] [address], [phone], 11/09/2023 11:25:19 11/09/19 24 11/09/2023 COMP. METAB OLIC PANEL GFR 94 >= 60 normal NOT E New calcu latio n for GFR (CKD- EPI 2020) is formu lated witho ut race adjus tment facto rs at the recom menda tion of the Aneudy Covington y Found at[facility]on and Ammyrna Kapadiae of Nephr ology . This calcu latio n has not been valid ated in pregn ant women . For pedia tric patie nts refer to https :[email or web address] verde.jayden garcia.o cecy/pr ofess ional s/KDO QI/gf r_cal culat orPed Not Available [facility] [address] [place] [address], [phone], 11/09/2023 11:25:19 11/09/19 24 11/09/2023 LIPID PROFI LE HDL cholesterol 58 mg/dL 50-242 normal Not Available [facility] [address] [place] [address], [address], 11/09/2023 11:25:21 11/09/19 24 11/09/2023 LIPID PROFI LE triglyceride s 193 mg/dL 0-149 high TRIGL YCERI DE RANGE S BROOKE L: < 150 BORDE RLINE HIGH: 150 - 199 HIGH: 200 - 499 VERY HIGH: > OR = 500 Not Available [facility] [address] [place] [address], [phone], 11/09/2023 11:25:21 11/09/19 24 11/09/2023 LIPID PROFI LE cholesterol 140 mg/dL 0-199 normal PILO STERO L (TOTA L) RANGE S LEONA ABLE: < 200 BORDE RLINE : 200 - 239 HIGHE R RISK: > 239 Not Available [facility] [address] [place] [address], [phone], 11/09/2023 11:25:21 11/09/19 24 11/09/2023 LIPID PROFI LE LDL cholesterol 43 mg/dL _(mildred c) 0-99 normal LDL PILO STERO L RANGE S OPTIM AL: < 100 NEAR/ ABOVE OPTIM AL: 100 - 129 BORDE RLINE HIGH: 130 - 159 HIGH: 160 - 189 VERY HIGH: > OR = 190 Not Available [facility] [address] [place] [address], [phone], 11/09/2023 11:25:21 11/09/19 24 11/09/2023 PTH, INTAC T WITH CA PTH, intact 80.0 pg/mL 15.0-6 5.0 high INTER PRETI VE GUIDE ===== ===== ===== ===== ===== ===== ===== ===== ===== ===== ===== === PTH CALCI UM CONDI TION ===== ===== ===== ===== ===== ===== ===== ===== ===== ===== ===== = Brooke l Brooke l Brooke l Parat hyroi d _ Low or Low Hypop kong yroid ism Low Brooke l _ Brooke l or High Prima ry Hyper parat hyroi dism High __ High Brooke l or Secon andrea Hyper parat hyroi dism Low __ High High Terti katerin Hyper parat hyroi dism __ Low or High Non-P kong yroid Hyper calce salima Low Brooke l ===== ===== ===== ===== ===== ===== ===== ===== ===== ===== ===== ==== Not Available [facility] [address] [place] [address], [phone], 11/09/2023 11:42:58 11/09/19 24 11/09/2023 PTH, INTAC T WITH CA calcium 11.0 mg/dL 8.6-10 .2 high Not Available [facility] [address] [place] [address], [phone], 11/09/2023 11:42:58 11/09/19 24 11/09/2023 VITAM IN D 25-OH vitamin D 25-oh, total 26 NG/mL >=30 NG/mL abnormal Not Available [facility] [address] [place] [address], [phone], 11/09/2023 11:43:00 11/09/19 24 11/10/2023 URINE DRUG SCREE N amphetamines NEGATI VE NG/mL <500 normal Not Available [facility] [address] [place] [address], [phone], 11/10/2023 06:49:00 11/09/19 24 11/10/2023 URINE DRUG SCREE N barbiturates NEGATI VE NG/mL <300 normal Not Available [facility] [address] [place] [address], [phone], 11/10/2023 06:49:00 11/09/19 24 11/10/2023 URINE DRUG SCREE N benzodiazepi don NEGATI VE NG/mL <100 normal Not Available [facility] [address] [place] [address], [address], 11/10/2023 06:49:00 11/09/19 24 11/10/2023 URINE DRUG SCREE N marijuana metabolite NEGATI VE NG/mL <20 normal Not Available [facility] [address] [place] [address], [address], 11/10/2023 06:49:00 11/09/19 24 11/10/2023 URINE DRUG SCREE N cocaine metabolite NEGATI VE NG/mL <150 normal Not Available [facility] [address] [place] [address], [address], 11/10/2023 06:49:00 11/09/19 24 11/10/2023 URINE DRUG SCREE N methadone metabolite NEGATI VE NG/mL <100 normal Not Available [facility] [address] [place] [address], [address], 11/10/2023 06:49:00 11/09/1911/10/2023 URINE DRUG SCREE N opiates NEGATI VE NG/mL <100 normal Not Available [facility] [address] [place] [address], [phone], 11/10/2023 06:49:00 11/09/19 24 11/10/2023 URINE DRUG SCREE N oxycodone NEGATI VE NG/mL <100 normal Not Available [facility] [address] [place] [address], [address], 11/10/2023 06:49:00 11/09/19 24 11/10/2023 URINE DRUG SCREE N phencyclidin e NEGATI VE NG/mL <25 normal Not Available [facility] [address] [place] [address], [address], 11/10/2023 06:49:00 11/09/19 24 11/10/2023 URINE DRUG SCREE N creatinine 92.7 mg/dL > or = 20.0 normal Not Available [facility] [address] [place] [address], [address], 11/10/2023 06:49:00 11/09/19 24 11/10/2023 URINE DRUG SCREE N specific gravity 1.019 > or = 1.003 normal Not Available [facility] [address] [place], [address], 11/10/2023 06:49:00 11/09/19 24 11/10/2023 URINE DRUG SCREE N pH 6.5 4.5-9. 0 normal Not Available [facility] [address] [place], [address], 11/10/2023 06:49:00 11/09/19 24 11/10/2023 URINE DRUG SCREE N oxidant NEGATI VE mcg/m L <200 normal Not Available [facility] [address] [place], [address], 11/10/2023 06:49:00 11/09/19 24 11/10/2023 URINE DRUG SCREE N comment SEE NOTE normal This drug testi ng is for medic al treat ment only. Jacquelin sis was perfo rmed as non-f orens ic testi ng and these resul ts shoul d be used only by healt hcare provi ders to rende r diagn osis or treat ment, or to monit or progr ess of medic al condi tions . Healt hcare Provi ders needi ng Inter preta tion mehdi tance , pleas e conta ct us at 1.877 .40.R XTOX (1.87 [phone] ) M-F, 8am to 10pm EST Not Available [facility] [place], [address], 11/10/2023 06:49:00 05/09/19 24 05/09/2023 XR, shoul rebel, 2 or more view [place] [facility] [address] [address] Albert garcia Name: IRA Rodney DIANE Hargrove Albert garcia : [address] Orderi ng Provid er: QUINTON ORTIZ EXAM DATE: 2023 EXAM: XR RT SHOULD ER COMPLE TE RADIOG RAPHIC VIEWS: 4 COMPAR TOMMIE: None. HISTOR Y: Right should er pain. FINDIN GS: The bones of the should er are normal in alignm ent. There is no eviden ce of fractu re. There is modera te to severe degene rative change s at the glenoh umeral joint. There are mild-t o-mode rate degene rative change s at the acromi oclavi cular joint and mild spurri ng along the greate r tubero sity of the humeru s. The acromi oclavi cular and coraco clavic ular spacin g is normal . The visual ized right ribs and right lung appear s normal . IMPRES CAMILA: 1. There are modera te to severe degene rative change s in the right glenoh umeral joint. Interp reted By: Tomer murillo MD Electr onical ly Signed By: Tomer murillo MD on 024 11:03 AM [facility] [address] , [place], [address], 05/10/2023 22:32:49 05/19/19 24 05/19/2023 rf RT shoul rebel stero id injec tion [facility] [address] [place] [address] Patien t Name: IRA Hargrove Patien t : [address] 3 Orderi ng Provid er: QUINTON ORTIZ EXAM DATE: 2023 EXAM: RF RT SHOULD ER STEROI D INJECT ION HISTOR Y: Right should er pain. TECHNI QUE: No POC testin g for eGFR was perfor med due to absenc e of risk factor s. The patien t was positi oned supine on the fluoro scopy table and an entry site was locali zed under fluoro scopic guidan ce. The skin was preppe d and draped in the usual steril e fashio n. 1% Lidoca ine was used to anesth etize the skin and subcut aneous tissue s. A 22-gau ge spinal needle was introd uced into the anteri or aspect of the glenoh umeral joint. The needle tip positi on within the glenoh umeral joint was confir med with 2 [address] bobbi [address]. Subseq uently , 2 mL dexame thason e (4 mg/mL) and 6 mL bupiva luisito 0.5% were introd uced into the joint. The needle was remove d in the patien t tolera bobbi the proced ure well. 2 mL of a 50 mL vial of Omnipa que 300 ([facility] [address]-6 1) was inject ed into the patien t. The remain ing 48 mL was wasted and discar ded. Dexame thason e ([facility] [address]- 422-00 ) IMPRES CAMILA: 1. The patien t is status post right should er arthro gram with dexame thason e and bupiva luisito inject ion withou t compli cation . Interp reted By: Tomer murillo MD Electr onical ly Signed By: Tomer murillo MD on 024 2:38 PM [facility] [address], [address], 05/20/2023 06:30:38 Result Notes None recorded. Problems Name Problem SNOMED Code Status Onset Date Resolution Date Notes Provider Name and Address Organization Details Recorded Time Essential hypertension 49788234 Active 2021 ENZO WRIGHT MD [address] [place] [address], [address], [facility] 2 10:44:13 Hyperlipidemia 28548517 Active 2021 ENZO WRIGHT MD [address] [place] [address], [address] 1, [facility] 2 10:44:19 Chronic pain syndrome 840294133 Active 2021 ENZO WRIGHT MD [address] [place] [address], [address] 1, 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 2 15:13:39 Hyperparathyro idi 42893161 Active 2022 ENZO WRIGHT MD [address] [place] [address], [address] 1[facility] 3 07:28:03 Major depression in remission 77628653 Active 2022 ENZO WRIGHT MD [address] [place] [address], [address] 1, [facility] 3 08:21:58 Problem Notes Documentation Provider Name and Address Organization Details Recorded Time Orthopedic Surgeon Consult Note : [facility] [address] [facility] [id number], Diane S (id #[id number], : 1950) [facility] [address] [place] [address] Encounter Summary - Progress Note Date Printed: 05/09/2023 Documents sent via fax will include the followingmessage: This fax may contain sensitive and confidential personal health information that is being sent for the sole use of the intended recipient. Unintended recipients are directed to securely destroy any materials received. You are hereby notified that the unauthorized disclosure or other unlawful use of this fax or any personal health information is prohibited. To the extent patient information contained in this fax is subject to 42 CFR Part 2, this regulation prohibits unauthorized disclosure of these records. If you received this fax in error, please visit [email or web address] to notify the sender and confirm that the information will be destroyed. If you do not have internet access, please call to notify the sender and confirm that the information will be destroyed. Thank you for your attention and cooperation. 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 Pain in shoulder and biceps. Fingers go numb often. Popping clicking or grinding-none. Trouble lifting arm up overhead or reaching back. No prior injuries to right shoulder or neck. No prior surgeries to the right shoulder. Had parathyroid surgery 3 out of 4 removed. Tends to have high blood calcium. No diabetes. X-RAY: LC 05/09/2023: Right shoulder x-rays were reviewed and discussed by me with the patient in detail today. Images reveal severe glenohumeral osteoarthritis with proximal migration of the humeral head and an inferior head osteophyte. There is posterior glenoid wear. MRI: ____PT: noneNSAIDS: Aleve prn (helps a little)INJECTION: none Review of Systems Patient reports no fever. She reports no vision change. She reports no chest pain. She reports no shortness of breath. She reports normal appetite, no nausea, and no vomiting. [id number] 11:07 Ht: 5 ft 4 in Wt: 191 lbs BMI: 32.8 Pain Scale: 8 Results/InterpretationsNone recorded Physical ExamAlert and oriented 3..Well-developed, well-nourished, in no acute distress..No obvious swelling, discoloration, deformity noted in the right shoulder.Posture/Observatio n: Forward Roll Yes.Cervical ROM Limited.Right Shoulder range of motion:Flexion: 80Abduction: 70ER: 20/45IR: 0.Palpation:AC____BicepsYes Posterior Joint line YesGreater Tuberousity YesPec Minor ____Upper Trap ____Medial Scapular Border ____.Manual Muscle Test:Shoulder Flexion: Right ____/5 Left ____/5Shoulder Abduction: Right ____/5 Left ____/5Shoulder Internal Rotators: Right 4+/5 Left ____/5Shoulder External Rotators: Right 4/5 Left ____/5Elbow Flexion: Right ____/5 Left ____/5Elbow Extension: Right ____/5 Left ____/5Wrist Flexion: Right ____/5 Left ____/5Wrist Extension: Right ____/5 Left ____/5Intrinsics: Right ____/5 Left ____/5.Special tests:Supraspinatus Tests: deferred due to limited romHorz. Adduction ____Hawkins ____Cross-Chest Adduction ____Neers ____Empty can ____.Biceps Test:Speeds Negative.Subscapularis Test:Belly press ____Lift Off ____.Labrum Tests:[place]'s ____DLS ____.Scapular dyskinesis ____Scapular assist ____. Dermatologic: NormalMotor:abnormalNeurolo gic:decreased sensation of ulnar distributionVascular: Radial Normal ; Brachial ____. Procedure DocumentationNone recorded Assessment and Plan1. Osteoarthritis of right glenohumeral [id number]: Primary osteoarthritis, right shoulder Discussion NotesReviewed and discussed with the patient her x-rays which reveal severe osteoarthritis of the right shoulder. Discussed conservative and surgical options with the patient in detail. Discussed the fact that though most people are better with surgery; some are no better and some are worse. I also discussed the inherent risks and complications such as: , DVT, infection, stiffness, loss of motion and or strength, as well as need for extensive postoperative care with physical therapy. Patient comfortable with plan and wishes to proceed conservatively. She is not interested in arthroplasty at this time. A referral to Dr. Carson was provided to obtain a right shoulder intra-articular steroid injection under fluoroscopy. Recommended OTC liquid gel Ibuprofen. F/U PRN Return to Office ENZO WRIGHT MD for RECHECK at [facility] on 11/09/2023 at 11:00 AM Patient Medical History: Allergies List Reviewed Allergies SULFA (SULFONAMIDE ANTIBIOTICS) Medications Reviewed Medications NameDate Source alendronate 70 mg tabletTake 1 tablet(s) every week by oral route in the morning for 91 days.05/04/23 prescribed ENZO WRIGHT MD ezetimibe 10 mg tabletTake 1 tablet(s) every day by oral route.08/03/22 entered ENZO WRIGHT MD gabapentin 600 mg tabletTake 1 tablet(s) twice a day by oral route for 90 days.05/04/23 prescribed ENZO WRIGHT MD losartan 50 mg tabletTAKE 1 TABLET BY MOUTH EVERY DAY04/07/23 renewed ENZO WRIGHT MD methenamine hippurate 1 gram tabletTake 1 tablet(s) twice a day by oral route as directed for 90 days.04/26/22 prescribed LESLYE CANADA APRN pjgxjvrxffuu38/12/21 entered Leslye Scott simvastatin 40 mg tabletTAKE 1 TABLET BY MOUTH EVERY DAY04/17/23 renewed ENZO WRIGHT MD venlafaxine 37.5 mg tabletTAKE 1 TABLET BY MOUTH EVERY DAY04/07/23 renewed ENZO WRIGHT MD Vitamin D 2,000 unit capsuleTake 1 capsule(s) every day by oral route.11/11/22 entered ENZO WRIGHT MD Family HistoryReviewed Family History Father - Heart disease - Hypertensive disorder - Diabetes mellitus Mother - Chronic obstructive lung disease Past Medical HistoryReviewed Past Medical History Arthritis:Y High Cholesterol:Y-on meds Hypertension:Y-on meds Vaccine HistoryVaccines not reviewed (last reviewed 05/04/2023) Vaccine Type Date Amt. Route Site [facility] Lot # Mfr. Exp. Date VIS VIS Given Swamper COVID-19 COVID-19, mRNA, LNP-S, PF, 30 mcg/0.3 mL dose ([employer]) 05/22/20 0.3 mL Intramuscular [id number] Conjunct, [employer] 09/23/20 COVID-19, mRNA, LNP-S, PF, 30 mcg/0.3 mL dose ([employer]) 04/28/20 0.3 mL Intramuscular [id number] Pfizer, Inc 08/23/20 Influenza influenza, high-dose, quadrivalent 03/24/23 0.7 mL Intramuscular [id number] Sanofi Pasteur 09/24/23 influenza, high-dose, quadrivalent 02/02/22 0.7 mL Intramuscular Deltoid, Left [id number] Sanofi Pasteur 09/23/22 Inactivated Influenza 10/30/2020 02/02/22 Roxi Sorenson influenza, high dose seasonal 01/21/20 0.7 mL Intramuscular [id number] Sanofi Pasteur 09/23/20 influenza, high dose seasonal 02/09/19 0.5 mL Intramuscular [id number] Sanofi Pasteur 09/24/19 influenza, high dose seasonal 03/01/18 0.5 mL Intramuscular [id number] Sanofi Pasteur 09/02/18 Pneumococcal Pneumococcal conjugate PCV20, polysaccharide [id number] conjugate, adjuvant, PF 02/02/22 0.5 mL Intramuscular Deltoid, Right [id number] Other smoking pipe coater 11/25/22 Pneumococcal Conjugate 04/30/21 02/02/22 Roxihue Sorenson pneumococcal polysaccharide [id number] 01/09/20 pneumococcal conjugate PCV 13 01/08/19 Zoster zoster recombinant 11/23/21 0.5 mL Intramuscular [id number] [employer] 07/30/22 Electronically Signed by: QUINTON ORTIZ MD ENZO WRIGHT MD [address] [place], [address], [facility] 05/10/2023 07:30:33 Orthopedics Note : [facility] [address] [facility] [id number], Diane S (id #[id number], : 1950) [facility] [address] [place] [address] Encounter Summary - Progress Note Date Printed: 05/09/2023 Documents sent via fax will include the followingmessage: This fax may contain sensitive and confidential personal health information that is being sent for the sole use of the intended recipient. Unintended recipients are directed to securely destroy any materials received. You are hereby notified that the unauthorized disclosure or other unlawful use of this fax or any personal health information is prohibited. To the extent patient information contained in this fax is subject to 42 CFR Part 2, this regulation prohibits unauthorized disclosure of these records. If you received this fax in error, please visit [email or web address] to notify the sender and confirm that the information will be destroyed. If you do not have internet access, please call to notify the sender and confirm that the information will be destroyed. Thank you for your attention and cooperation. 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 Pain in shoulder and biceps. Fingers go numb often. Popping clicking or grinding-none. Trouble lifting arm up overhead or reaching back. No prior injuries to right shoulder or neck. No prior surgeries to the right shoulder. Had parathyroid surgery 3 out of 4 removed. Tends to have high blood calcium. No diabetes. X-RAY: 05/09/2023: Right shoulder x-rays were reviewed and discussed by me with the patient in detail today. Images reveal severe glenohumeral osteoarthritis with proximal migration of the humeral head and an inferior head osteophyte. There is posterior glenoid wear. MRI: ____PT: noneNSAIDS: Aleve prn (helps a little)INJECTION: none Review of Systems Patient reports no fever. She reports no vision change. She reports no chest pain. She reports no shortness of breath. She reports normal appetite, no nausea, and no vomiting. [id number] 11:07 Ht: 5 ft 4 in Wt: 191 lbs BMI: 32.8 Pain Scale: 8 Results/InterpretationsNone recorded Physical ExamAlert and oriented 3..Well-developed, well-nourished, in no acute distress..No obvious swelling, discoloration, deformity noted in the right shoulder.Posture/Observatio n: Forward Roll Yes.Cervical ROM Limited.Right Shoulder range of motion:Flexion: 80Abduction: 70ER: 20/45IR: 0.Palpation:AC____BicepsYes Posterior Joint line YesGreater Tuberousity YesPec Minor ____Upper Trap ____Medial Scapular Border ____.Manual Muscle Test:Shoulder Flexion: Right ____/5 Left ____/5Shoulder Abduction: Right ____/5 Left ____/5Shoulder Internal Rotators: Right 4+/5 Left ____/5Shoulder External Rotators: Right 4/5 Left ____/5Elbow Flexion: Right ____/5 Left ____/5Elbow Extension: Right ____/5 Left ____/5Wrist Flexion: Right ____/5 Left ____/5Wrist Extension: Right ____/5 Left ____/5Intrinsics: Right ____/5 Left ____/5.Special tests:Supraspinatus Tests: deferred due to limited romHorz. Adduction ____Hawkins ____Cross-Chest Adduction ____Neers ____Empty can ____.Biceps Test:Speeds Negative.Subscapularis Test:Belly press ____Lift Off ____.Labrum Tests:[place]'s ____DLS ____.Scapular dyskinesis ____Scapular assist ____. Dermatologic: NormalMotor:abnormalNeurolo gic:decreased sensation of ulnar distributionVascular: Radial Normal ; Brachial ____. Procedure DocumentationNone recorded Assessment and Plan1. Osteoarthritis of right glenohumeral zfuvnV13.011: Primary osteoarthritis, right shoulder Discussion NotesReviewed and discussed with the patient her x-rays which reveal severe osteoarthritis of the right shoulder. Discussed conservative and surgical options with the patient in detail. Discussed the fact that though most people are better with surgery; some are no better and some are worse. I also discussed the inherent risks and complications such as: , DVT, infection, stiffness, loss of motion and or strength, as well as need for extensive postoperative care with physical therapy. Patient comfortable with plan and wishes to proceed conservatively. She is not interested in arthroplasty at this time. A referral to Dr. Carson was provided to obtain a right shoulder intra-articular steroid injection under fluoroscopy. Recommended OTC liquid gel Ibuprofen. F/U PRN Return to Office ENZO WRIGHT MD for RECHECK at [facility] on 11/09/2023 at 11:00 AM Patient Medical History: Allergies List Reviewed Allergies SULFA (SULFONAMIDE ANTIBIOTICS) Medications Reviewed Medications NameDate Source alendronate 70 mg tabletTake 1 tablet(s) every week by oral route in the morning for 91 days.05/04/23 prescribed ENZO WRIGHT MD ezetimibe 10 mg tabletTake 1 tablet(s) every day by oral route.08/03/22 entered ENZO WRIGHT MD gabapentin 600 mg tabletTake 1 tablet(s) twice a day by oral route for 90 days.05/04/23 prescribed ENZO WRIGHT MD losartan 50 mg tabletTAKE 1 TABLET BY MOUTH EVERY DAY04/07/23 renewed ENZO WRIGHT MD methenamine hippurate 1 gram tabletTake 1 tablet(s) twice a day by oral route as directed for 90 days.04/26/22 prescribed LESLYE CANADA APRN mrqyeescxncx42/12/21 entered Leslye Scott simvastatin 40 mg tabletTAKE 1 TABLET BY MOUTH EVERY DAY04/17/23 renewed ENZO WRIGHT MD venlafaxine 37.5 mg tabletTAKE 1 TABLET BY MOUTH EVERY DAY04/07/23 renewed ENZO WRIGHT MD Vitamin D 2,000 unit capsuleTake 1 capsule(s) every day by oral route.11/11/22 entered ENZO WRIGHT MD Family HistoryReviewed Family History Father - Heart disease - Hypertensive disorder - Diabetes mellitus Mother - Chronic obstructive lung disease Past Medical HistoryReviewed Past Medical History Arthritis:Y High Cholesterol:Y-on meds Hypertension:Y-on meds Vaccine HistoryVaccines not reviewed (last reviewed 05/04/2023) Vaccine Type Date Amt. Route Site [facility] Lot # Mfr. Exp. Date VIS VIS Given Swamper COVID-19 COVID-19, mRNA, LNP-S, PF, 30 mcg/0.3 mL dose (Conjunct-BioNTech) 05/22/20 0.3 mL Intramuscular [id number] Pfizer, Inc 09/23/20 COVID-19, mRNA, LNP-S, PF, 30 mcg/0.3 mL dose (Conjunct-BioNTech) 04/28/20 0.3 mL Intramuscular [id number] Pfizer, Inc 08/23/20 Influenza influenza, high-dose, quadrivalent 03/24/23 0.7 mL Intramuscular [id number] Sanofi Pasteur 09/24/23 influenza, high-dose, quadrivalent 02/02/22 0.7 mL Intramuscular Deltoid, Left [id number] Sanofi Pasteur 09/23/22 Inactivated Influenza 10/30/2020 02/02/22 Roxi Sorenson influenza, high dose seasonal 01/21/20 0.7 mL Intramuscular [id number] Sanofi Paste[employer] 09/23/20 influenza, high dose seasonal 02/09/19 0.5 mL Intramuscular [id number] Sanofi Pasteur 09/24/19 influenza, high dose seasonal 03/01/18 0.5 mL Intramuscular [id number] Sanofi Pasteur 09/02/18 Pneumococcal Pneumococcal conjugate PCV20, polysaccharide [id number] conjugate, adjuvant, PF 02/02/22 0.5 mL Intramuscular Deltoid, Right [id number] Other smoking pipe coater 11/25/22 Pneumococcal Conjugate 04/30/21 02/02/22 Rxoi Sorenson pneumococcal polysaccharide [id number] 01/09/20 pneumococcal conjugate PCV 13 01/08/19 Zoster zoster recombinant 11/23/21 0.5 mL Intramuscular [id number] [employer] 07/30/22 Electronically Signed by: QUINTON ORTIZ MD ROBERT BOATENG MD [address] [place], [phone], [facility] 05/09/2023 13:27:59 Procedures Surgical History Date Name Laterality Status Provider Name and Address Organization Details Recorded Time 023 Fine Needle Aspiration; Ultrasound guidance completed ROBERT BOATENG MD [address] [place] [address], [phone], [facility] 06/21/2022 11:22:42 023 DXA Osteoporosis completed ROBERT BOATENG MD [address] [place] [address], [phone], [facility] 06/21/2022 12:19:14 023 Post Void Residual; Ultrasound completed Mercymanuela Silverioey [facility] 04/26/2022 14:56:07 022 Post Void Residual; Ultrasound completed Roxi Mtz [facility] 05/25/2021 09:36:19 021 Pap Smear collection completed MARVEL WRIGHT MD [address] [place] [address], [phone] 01/05/2021 15:52:59 021 Date of Last Pap Smear completed Nandini Ashok [facility] 01/13/2021 08:42:38 019 Total Hysterectomy completed ENZO WRIGHT MD [address] [place] [address], [phone] 07/28/2021 10:37:35 019 Cystoscopy - female completed MALA WEBB MD [address] [place] [address], [phone], [facility] 09/12/2018 14:18:46 019 Post Void Residual; Ultrasound completed Rebekah Hogan [facility] 08/28/2018 13:34:15 017 Post Void Residual; Ultrasound completed [facility] 01/30/2017 14:44:49 008 Appendectomy completed [facility] 01/30/2017 14:44:02 005 Cholecystectomy completed [facility] 01/30/2017 14:44:13 parathyroidectomy completed Yifan Scott [facility] 01/05/2021 15:15:53 total replacement of hip completed Leslye Scott [facility] 01/05/2021 15:16:23 Imaging Results None recorded. Procedure Notes None recorded. Medical Equipment None Reported. Allergies Allergen ID Allergen Name Allergen Category Reaction Reaction Severity Criticality Documentation Date Start Date Code Code System Note Provider Name and Address Organization Details Recorded Time [id number] Substance with sulfonami de structure and antibacte rial mechanism of action (substanc e) medicatio n Not available Not available Not available 01/05/2021 93117 [id number] SNOMED Leslye Scott [facility] 15:09:59 Medications Name Sig Start Date Stop Date Status Note LastModified by Organization Details LastModified Time losartan 50 mg tablet Take 1 tablet by mouth once daily 2024 active Not Available Not Available Not Avai lable amoxicillin 500 mg capsule 12/04 completed Not Available Not Available Not Available nitrofurant oin macrocrysta l 50 mg capsule 12/04 completed Not Available Not Available Not Available gabapentin 600 mg tablet Take 1 tablet twice a day by oral route for 90 days. 2023 active Not Available Not Available Not Avai lable cefuroxime axetil 250 mg tablet 12/04 completed Not Available Not Available Not Available nabumetone 750 mg tablet 01/05 completed Not Available Not Available Not Available ibuprofen 800 mg tablet 12/04 completed Not Available Not Available Not Available ampicillin 500 mg capsule 12/04 completed Not Available Not Available Not Available alendronate 70 mg tablet Take 1 tablet every week by oral route in the morning for 91 days. 2023 active Not Available Not Available Not Avai lable hydrocodone 10 mg-acetamin ophen 325 mg tablet 12/04 completed Not Available Not Available Not Available tramadol 50 mg tablet 01/05 completed Not Available Not Available Not Available simvastatin 40 mg tablet TAKE 1 TABLET BY MOUTH EVERY DAY 2023 active Not Available Not Available Not Avai lable methenamine hippurate 1 gram tablet active Not Available Not Available Not Available amoxicillin 875 mg tablet Take 1 tablet every 12 hours by oral route for 10 days. 04/22 completed Not Available Not Available Not Available doxycycline monohydrate 100 mg capsule Take 1 capsule twice a day by oral route as directed for 7 days. 05/05 completed Not Available Not Available Not Available venlafaxine 37.5 mg tablet TAKE 1 TABLET BY MOUTH EVERY DAY 2023 active Not Available Not Available Not Avai lable nitrofurant oin macrocrysta l 100 mg capsule 12/04 completed Not Available Not Available Not Available diclofenac potassium 50 mg tablet 12/04 completed Not Available Not Available Not Available omeprazole 20 mg capsule,del ayed release 01/05 completed Not Available Not Available Not Available hydrochloro thiazide 25 mg tablet TAKE 1 TABLET BY MOUTH EVERY DAY active Not Available Not Available No t Available oxycodone-a cetaminophe n 7.5 mg-325 mg tablet 12/04 completed Not Available Not Available Not Available estradiol 0.01% (0.1 mg/gram) vaginal cream use a pea sized amount to the vagina 3 x weekly 05/25 completed Not Available Not Available Not Available albuterol sulfate HFA 90 mcg/actuati on aerosol inhaler Inhale 2 puffs every 6-8 hours by inhalatio n route as needed for 7 days. 05/04 completed Not Available Not Available Not Available cefdinir 300 mg capsule 12/04 completed Not Available Not Available Not Available amoxicillin 875 mg-potassiu m clavulanate 125 mg tablet 01/30 completed Not Available Not Available Not Available oxycodone 5 mg tablet 12/04 completed Not Available Not Available Not Available Bactrim DS 800 mg-160 mg tablet Take 1 tablet every 12 hours by oral route before meals for 7 days. 01/05 completed Not Available Not Available Not Available enoxaparin 30 mg/0.3 mL subcutaneou s syringe 01/05 completed Not Available Not Available Not Available ezetimibe 10 mg tablet TAKE 1 TABLET BY MOUTH EVERY DAY 2023 active Not Available Not Available Not Avai lable nitrofurant oin monohydrate /macrocryst als 100 mg capsule Take 1 capsule every 12 hours by oral route as directed for 7 days. 08/033 completed Not Available Not Available Not Available losartan 100 mg-hydrochl orothiazide 12.5 mg tablet 01/05 completed Not Available Not Available Not Available Vitamin D 11/11 completed Not Available Not Available Not Available multivitami n active Not Available Not Available Not Available Golytely 236 gram-22.74 gram-6.74 gram-5.86 gram oral solution Take as directed 05/04 completed Not Available Not Available Not Available Vitamin D 2,000 unit capsule Take 1 capsule every day by oral route. 11/09 completed Not Available Not Available Not Available Vitamin D3 125 mcg (5,000 unit) tablet Take 1 tablet every day by oral route for 90 days. 2023 active Not Available Not Available Not Avai lable Vitals Date Recorded Body height Respiratory rate Heart rate Systolic blood pressure Diastolic blood pressure Provider Name and Address Organization Details Last Updated DateTime 05/04/2023 162.56 cm 12 /min 76 /min 120 mm[Hg] 77 mm[Hg] ENZO WRIGHT MD [address] [place] [address], [phone] [place] [address] 09:31:35 Date Recorded Body mass index (BMI) Body weight Provider Name and Address Organization Details Last Updated DateTime 05/04/2023 32.8 kg/m2 06813.54 g Roxi Sorenson [facility] 05/04/2023 09:29:00 Date Recorded Body height Body mass index (BMI) Body weight Provider Name and Address Organization Details Last Updated DateTime 05/09/2023 162.56 cm 32.8 kg/m2 77829.14 g Mahesh [facility] 05/09/2023 11:07:12 Date Recorded Respiratory rate Heart rate Systolic blood pressure Diastolic blood pressure Provider Name and Address Organization Details Last Updated DateTime 08/03/2022 12 /min 76 /min 122 mm[Hg] 72 mm[Hg] ENZO WRIGHT MD [address] [place] [address], [phone] [facility] 08/03/2022 10:25:54 Date Recorded Body height Body mass index (BMI) Body weight Provider Name and Address Organization Details Last Updated DateTime 08/03/2022 162.56 cm 33.6 kg/m2 45775.1 g Adelaida Rubio [facility] 08/03/2022 10:17:00 Date Recorded Respiratory rate Heart rate Systolic blood pressure Diastolic blood pressure Provider Name and Address Organization Details Last Updated DateTime 11/09/2023 12 /min 68 /min 122 mm[Hg] 78 mm[Hg] ENZO WRIGHT MD [address] [place], [address] [facility] 11/09/2023 11:02:09 Date Recorded Body height Body mass index (BMI) Body weight Provider Name and Address Organization Details Last Updated DateTime 11/09/2023 162.56 cm 32.3 kg/m2 77587.37 g Roxi Sorenson [facility] 11/09/2023 10:51:35 Date Recorded Body height Respiratory rate Heart rate Systolic blood pressure Diastolic blood pressure Provider Name and Address Organization Details Last Updated DateTime 11/10/2022 162.56 cm 12 /min 80 /min 118 mm[Hg] 78 mm[Hg] ENZO WRIGHT MD [address] [place], [phone] 11:27:53 Date Recorded Body mass index (BMI) Body weight Provider Name and Address Organization Details Last Updated DateTime 11/10/2022 32.3 kg/m2 39996.47 g Roxi Sorenson [facility] 11/10/2022 11:22:33 Social History Question Answer Notes LastModified by Organizat ion Details LastModified Time Tobacco Smoking Status Never Smoker [facility] 01/30/2017 14:43:53 How Much Tobacco Do You Chew? None [email or web address] Information not available 12/05/2019 What Was The Date Of Your Most Recent Tobacco Screening? 11/09/2023 Information not available 11/09/2023 How Much Tobacco Do You Smoke? No [email or web address] Information not available 12/05/2019 Has Tobacco Cessation Counseling Been Provided? No Information not available 04/01/2022 How Many Years Have You Smoked Tobacco? 0 [email or web address] Information not available 12/05/2019 Sex: Female Functional Status Question Answer Note LastModified by Organizat ion Details LastModified Time Do you use any illicit or recreational drugs? No [email or web address] Information not available 05/25/2021 Do you or have you ever used any other forms of tobacco or nicotine? No Information not available 04/01/2022 What is your level of alcohol consumption? Occasional Information not available 07/28/2021 Do you or have you ever used smokeless tobacco? Never used smokeless tobacco [email or web address] Information not available 12/05/2019 Are you currently employed? Yes Information not available 07/28/2021 What is your occupation? [employer] Information not available 07/28/2021 Do you or have you ever used e-cigarettes or vape? Never used electronic cigarettes [email or web address] Information not available 12/05/2019 Mental Status None recorded. Family History Relationship Description Onset Age of this Age Resolved Age Notes LastModified by Organization Details LastModified Time Father Heart disease [email or web address] available 2021 10:46:15 Father Hypertensive disorder [email or web address] Not available 2022 15:58:28 Father Diabetes mellitus [email or web address] Not available 2022 15:58:36 Mother Chronic obstructive pulmonary disease [email or web address] Not available 2021 10:46:21 Medical History Condition Response Obesity Y Arthritis Y Cancer N Stroke N Urinary Tract Infection Y Deep Vein Thrombosis N High Cholesterol Y Thyroid Problems Y Heart Attack ([place]) N Diabetes N Sleep Apnea N Hypertension Y Gynecological History Statement/Question Response Abnormal Pap N Date of Last Mammogram Date of Last Colonoscopy Sexually Active? N Post Menopausal Bleeding N Date of Last Pap Smear 01/05/2021 Current Control Method Hysterectom y Obstetrics History GPAL:G 2 P 2 0 0 2 Type Value Full Term 2 Living 2 Total 2 Immunizations Vaccine Type Date Status Note Provider Nam e and Address Organization Details Recorded Time Pneumococcal conjugate PCV20, polysaccharide [id number] conjugate, adjuvant, PF 2 completed Roxi Sorenson [facility] 02/02/2022 11:07:03 Influenza, high-dose, quadrivalent, PF 2 noah Sorenson [facility] 02/02/2022 11:07:37 COVID-19, mRNA, LNP-S, PF, 30 mcg/0.3 mL dose 1 completed Leslie Haney [facility] 08/03/2022 09:39:04 Pneumococcal conjugate PCV 13 9 completed Not Available [facility] 05/09/2023 10:38:46 pneumococcal polysaccharide PPV23 0 completed Not Available [facility] 05/09/2023 10:38:46 zoster recombinant 2 completed Leslie Haney [facility] 08/03/2022 09:39:04 COVID-19, mRNA, LNP-S, PF, 30 mcg/0.3 mL dose 1 completed Leslie Haney [facility] 08/03/2022 09:39:04 Influenza, high-dose, trivalent, PF 0 completed Leslie Haney [facility] 08/03/2022 09:39:04 Influenza, high-dose, trivalent, PF 9 completed Leslie Haney [facility] 08/03/2022 09:39:04 Influenza, high-dose, trivalent, PF 8 completed Leslie Haney [facility] 08/03/2022 09:39:04 Influenza, high-dose, quadrivalent, PF 3 completed Roxi Sorenson [facility] 05/04/2023 09:27:12 Past Encounters Encounter ID Performer Location Encounter Start Date Encounter Closed Date Diagnosis/Indication Diagnosis SNOMED-CT Code Diagnosis ICD10 Code Diagnosis Note [id number] MALA WEBB MD [facility] [address] [place] [address] 01/30/2017 14:18:45 01/30/2017 16:00:08 Bladder muscle dysfunction - overactive 926323203 N32.81 Recurrent urinary tract infection 306017625 N39.0 Incomplete emptying of urinary bladder 931767033 R39.14 Urge incon tinence of urine 62534905 N39.41 [id number] MALA WEBB MD [facility] [address] [place] [address] 08/28/2018 13:14:16 08/28/2018 13:50:16 Recurrent urinary tract infection 568095522 N39.0 [id number] MALA WEBB MD SURGERY SCHEDULE [address] [place] [address] 1 09/12/2018 12:43:05 09/12/2018 12:47:24 [id number] MALA WEBB MD [facility] [address] [place] [address] 1 12/05/2019 13:53:14 12/05/2019 15:26:11 Recurrent urinary tract infection 604399202 N39.0 [id number] MARVEL WRIGHT MD [facility] [address] [place] [address] 0 01/05/2021 14:56:33 01/05/2021 16:04:15 Routine gynecologic examination done 3422216581 9101 Z01.419 5 year pap cuff. gets mammogram at [facility] yearly Dyspareunia 51515072 N94 .10 add some topical vaginal estrogen. mechanical stretch instructio ns. [id number] LESLYE CANADA APRN [facility]OLOG[facility] [address] [place] [address] 1 05/25/2021 09:06:19 05/25/2021 10:27:44 Recurrent urinary tract infection 853350738 N39.0 Chronic in terstitial cystitis 845561361 N30.10 Overactive urinary bladder 686849856 N32.81 [id number] ENZO WRIGHT MD [facility] [address] [place] [address] 1 07/28/2021 10:10:10 07/28/2021 11:33:09 Essential hypertension 24635958 I10 Hyperlipidemia 50603874 E78.5 Depressive disorder 3548 9007 F32.A Fatigue 68023860 R53.83 Obesity 559362078 E66.9 Chronic pain syndrome 37 3526517 G89.4 Long-term drug therapy 605772530 Z79.899 [id number] ENZO WRIGHT MD [facility] [address] [place] [address] 1 11/09/2021 13:07:52 11/09/2021 14:03:59 Essential hypertension 23906617 I10 Hyperlipidemia 12212649 E78.5 Depressive disorder 3548 9007 F32.A Liver func tion tests outside reference range 162453268 R94.5 Obesity 402833870 E66.9 Hypercalcemia 73967017 E 83.52 [id number] ENZO WRIGHT MD [facility] [address] [place] [address] 02/02/2022 09:29:04 02/02/2022 11:48:18 Adult health examination 360541650 Z00.00 Essential hypertension 76339280 I10 Hyperlipidemia 20295458 E78.5 Depressive disorder 3548 9007 F32.A Chronic pain syndrome 37 1280565 G89.4 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.0 Obesity 882732096 E66.9 Screening for malignant neoplasm of colon 757184730 Z12.11 Hypercalcemia 12478463 E 83.52 Administra tion of pneumococcal vaccine 38086669 Z23 Long-term drug therapy 979207816 Z79.899 Menopausal syndrome 1237 59821 N95.9 Administra tion of influenza vaccine 52325939 Z23 [id number] SONIA ANTHONY III, MD [place] [facility] [address] [place] [address] 04/01/2022 15:16:05 04/04/2022 07:55:26 Acute pharyngitis 737244745 J02.9 Deviated nasal septum 12 1748332 J34.2 Cough 61071812 R05.9 [id number] RICHELLE MORALES APRN SAME DAY [facility] CLOSED [address] [place] [id number] 04/22/2022 13:22:40 04/22/2022 15:31:14 Cough 91220032 R05.9 Patient with upper respirator y symptoms.D iscussed most likely viral in originReco mmended OTC medication s as needed, such as Robitussin DM which will help with a cough and chest congestion . Viruses last 7-10days on average. Increase fluid intake, hot tea with honey, nasal saline spray, can use neti pot as well with sterile water or sterile saline. humidifier in bedroom. Can take NSAIDS or tylenol for fever >100.4 as needed. Stay home from work until you are fever free x 24 hours.RTC precaution s discussed *mucinex, cough medication , inhaler as needed, doxy if not improving by Monday [id number] LESLYE CANADA APRN UROLOGY CLOSED [address] [place], [place] [address] 04/26/2022 13:42:27 04/26/2022 16:10:41 Recurrent urinary tract infection 343506621 N39.0 [id number] WANDA PADILLA APRN [facility] [address] [place], [place] [address] 04/26/2022 13:42:27 04/26/2022 16:10:41 Ganglion cyst 99854343 M67.40 bilaterall y to wrists- referring to general surgery for evaluation of sites for removal Viral uppe r respiratory tract infection 122925103 J06.9 please start mucinex OTC for expectorat ion [id number] ENZO WRIGHT MD [facility] [place] [id number] 05/05/2022 10:20:42 05/05/2022 16:02:35 Essential hypertension 09485652 I10 Hyperlipidemia 71173669 E78.5 Chronic pain syndrome 37 4334313 G89.4 Depressive disorder 3548 9007 F32.A Hyperparathyroidism 6699 9008 E21.3 Obesity 510958308 E66.9 Long-term drug therapy 483299793 Z79.899 Ganglion c yst of left hand 7383677553 95775 M67.442 [id number] ROBERT BOATENG MD ENDOCRINO [facility] [address] [address] 05/11/2022 10:21:37 05/11/2022 11:44:19 Hypercalcemia 92234795 E83.52 E21.0 New consultati on recurrent hyperparat hyroidism/ hypercalce salima Remote history of primary hyperparat hyroidism status post 3 gland parathyroi dectomy about 15 years ago Most recent laboratory work-up showed calcium of 10.6 corrected for albumin of 3.9 on 04/29/2022Si multaneous ly she had PTH of 40 pg/mL and 25-hydroxy vitamin D of 47.6 ng/mLAbove is consistent with recurrent primary hyperparat hyroidism. Reviewing her levels she has persistent hypercalce salima with highest calcium of 11.5 GFR above 60 On physical exam she has bilateral thyroid nodules We had a discussion about primary hyperparat hyroidism, pathophysi ology i.e. recurrent hyper para thyroidism , deleteriou s complicati ons in the form of low trauma fracture, kidney stones and chronic kidney disease. In view of her previous parathyroi d surgery, I recommende d to proceed with further evaluation in the form of simultaneo us PTH, calcium, magnesium and phosphorus . Bone density including one third radiusPara thyroid scan to evaluate for parathyroi d adenoma Non-toxic multinodular goiter 17746857 E04.2 Bilateral thyroid nodules on physical exam In the office today we had a discussion about thyroid nodule frequency, cancer risk, diagnostic workup, management and long-term follow-up. Thyroid/pa rathyroid ultrasound Further management to be determined as appropriat e i.e. consider ultrasound -guided fine-needl e aspiration for any thyroid nodules as appropriat e. Patient verbalized understand ing and agreed with the above mentioned plan of care. I would like to thank Dr. Wright for the opportunit y to participat e in the care of this patient. [id number] JACKSON CADENA PA-C [facility] CL[facility] [address] [place] [address] 05/25/2022 12:31:03 05/25/2022 13:22:26 Ganglion cyst of left volar wrist 1203135768 6024012 M67.432 She elects to observe this splint at this time, in hopes that wearing the splint to allow the area to rest will help resolve. Osteoarthr osis of the carpometacarpal joint of the thumb 74214262 M18.12 [id number] ROBERT BOATENG MD [facility] [address] [place] [address] 06/21/2022 08:26:30 06/21/2022 08:49:52 Osteoporosis 92403380 M81.0 According to national osteoporos is Foundation , indication s of anti-osteo porosis pharmacolo gic therapy include: A hip or vertebral [clinical symmetric] fracture T-score = -2.5 and the femoral neck or spine after appropriat e evaluation to exclude secondary causes Low bone mass [T-score between -1 and -2.5 at the femoral neck or spine] and that any of probabilit y of a hip fracture = 3% or a 10 year possibilit y of a major osteoporot ic fracture equals 20% based on US-adapted WHO of dada ) Bone density in our office today on 06/21/2022 consistent with osteoporos is and showing one third radius T score of -2.8. Recommenda tions: Start alendronat e 70 mg once weekly Alendronat e is bisphospho leah which inhibits osteoclast activity and bone resorbtion . This medication is taken once a week. Patient should take the medication with 8 ounces of water. For 30 minutes, she should not lie down or eat food. The most common side effect is GERD. Some patients experience bone pain. 1 year follow-up bone density Primary hyperparathyroidism 35879073 E21.0 E83.52 PTH of 60 and calcium of 11.3 on 05/11/2022 PTH mediated hypercalce salima consistent with recurrent primary hyperparat hyroidism Remote parathyroi dectomy Negative parathyroi d scan Discussed with patient that a negative parathyroi d scan does not refute a diagnosis of primary hyperparat hyroidism which is a biochemica l one, but rather than to evaluate candidacy for MIP Recommende d referral to ENT for further evaluation regarding parathyroi dectomy with or without further localizing studies. Non-toxic multinodular goiter 12742095 E04.2 Bilateral thyroid nodules on physical examThyroi d ultrasound report and images reviewed which showed The dominant nodule onthe right measures 1.7 x 1.5 x 2 cm. The dominant nodule on the leftmeasur es 1.6 x 1.4 x 1.4 cm. Bedside ultrasound showed another 1.8 cm thyroid isthmus nodule In the office today we had a discussion about thyroid nodule frequency, cancer risk, diagnostic workup, management and long-term follow-up. I recommende d to proceed with an ultrasound -guided FNA from the above-ment ioned thyroid nodule given the presence of calcificat ion and current evaluation for parathyroi dectomy. Patient is not known to be allergic to local anesthetic s. No history of high-dose antiplatel et or anticoagul ation therapy I proceeded to give patient a pathologic al diagnosis Patient verbalized understand ing and agreed with the above mentioned plan of care. [id number] ROBERT BOATENG MD BONE DENSITY SB [address] [place] [phone] 06/21/2022 08:26:30 06/21/2022 08:49:28 Menopausal syndrome 341869782 N95.8 Primary hyperparathyroidism 90168672 E21.0 [id number] ENZO WRIGHT MD INTERNAL MEDICINE [place] [id number] 1 08/03/2022 10:11:21 08/04/2022 04:35:07 Essential hypertension 04365480 I10 Hyperlipidemia 80430299 E78.5 Chronic pain syndrome 37 6203894 G89.4 Hyperparathyroidism 6699 9008 E21.3 Long-term drug therapy 500193895 Z79.899 Obesity 046588715 E66.9 Screening for malignant neoplasm of colon 607869093 Z12.11 [id number] ENZO WRIGHT MD [facility] [place] [id number] 1 11/10/2022 11:11:25 11/11/2022 04:19:13 Essential hypertension 58990243 I10 Hyperlipidemia 06914818 E78.5 Hyperparathyroidism 6699 9008 E21.0 stablecont inue current medication continue to monitorfol low up with endocrinol ogy Major depr ession in remission 02141000 F32.5 stablecont inue current medication continue to monitor Chronic pain syndrome 37 3431066 G89.4 Steatotic liver disease 610207694 K76.0 stablecont inue current medication continue to monitor Long-term drug therapy 081439115 Z79.899 Screening for malignant neoplasm of colon 925307696 Z12.11 Screening for malignant neoplasm of breast 318709640 Z12.39 [id number] ENZO WRIGHT MD [facility] [place] [id number] 1 05/04/2023 09:18:12 05/11/2023 11:52:35 Adult health examination 038591462 Z00.00 Essential hypertension 44473387 I10 Hyperlipidemia 76010622 E78.5 Chronic pain syndrome 37 2988698 G89.4 Major depr ession in remission 53571307 F32.5 stablecont inue current medication continue to monitor Hyperparathyroidism 6699 9008 E21.0 stablecont inue current medication continue to monitorfol low up with endocrinol ogy Long-term drug therapy 362318600 Z79.899 Screening for malignant neoplasm of breast 292565766 Z12.39 Screening for malignant neoplasm of colon 353605024 Z12.11 Osteoporosis 45539611 M8 1.0 Pain of ri ght shoulder joint 9447385906 5437664 M25.511 [id number] QUINTON ORTIZ MD ORTHOPEDI CS [facility] [address] [place] [address] 05/09/2023 10:35:45 05/09/2023 11:47:49 Osteoarthritis of right glenohumeral joint 2943007149 642749 M19.011 [id number] ENZO WRIGHT MD INTERNAL MEDICINE [address] [place] [address] 11/09/2023 10:36:31 11/14/2023 11:16:06 Essential hypertension 33782244 I10 Hyperlipidemia 11859330 E78.5 Chronic pain syndrome 37 9399388 G89.4 Major depr ession in remission 24447852 F32.5 stablecont inue current medication continue to monitor Hyperparathyroidism 6699 9008 E21.0 stablecont inue current medication continue to monitorfol low up with endocrinol ogy Long-term drug therapy 419400986 Z79.899 Fatigue 75465780 R53.83 Health Concerns Section Related Observation LastModified by Organization Detai ls LastModified Time None Recorded Concern Status LastModified by Organization Details LastModified Time None Recorded Advance Directives Directive None Recorded Payers Insurance Date Sequence Insurance Name Policy Number Policy Hensley Covered Member ID Hensley Member ID Guarantor Name 05/13/2024 1 [employer] [employer] (MEDICARE REPLACEMENT HMO) [id number] Ira Rodney Walker [id number] Ira S Walker 05/13/2024 [employer] - DMEPOS ASSIGNED (MEDICARE DME REGION B) Ira Rodney Walekr [id number] Ira Cardoso 05/04/2023 1 [place] Ira Cardoso [id number] Ira Cardoso 05/09/2023 2 [place] [id number] Ira Cardoso [id number] Ira Cardoso Notes Date Note Type Note Provider Name and Address Organization Details Recorded Time 08/04/19 23 text/htm l Hypertension is chronic, ongoing, stableHyperlipidemia is chronic, ongoing, stableChronic pain syndrome is ongoing, stableShe has had the problems for years ENZO WRIGHT MD [address] [place] [address], [phone], [facility] 08/03/2022 10:33:24 11/11/19 23 text/htm l Hypertension is chronic, ongoing, stableHyperlipidemia is chronic, ongoing, stableHyperparathyroidism is chronic, ongoing, stableDepression is chronic, ongoing, stableChronic pain syndrome is ongoing, stableShe has had the problems for years ENZO WRIGHT MD [address] [place] [address], [phone], [facility] 11/10/2022 11:34:25 05/04/19 24 text/htm l Medicare wellness visit.Hypertension is chronic, ongoing, stableHyperlipidemia is chronic, ongoing, stableChronic pain syndrome is ongoing, stable ENZO WRIGHT MD [address] [place] [address], [phone], [facility] 05/04/2023 09:51:13 05/09/19 24 text/htm l PCP:SEEN FOR CONSULTATION AT THE REQUEST OF:HAND DOMINANCE: RightWHAT: Right Shoulder.WHEN: couple years HOW: insidious onset SYMPTOMS: PAIN: 8 /10 Difficulty sleeping secondary to pain. Pain in shoulder and biceps. Fingers go numb often. Popping clicking or grinding-none. Trouble lifting arm up overhead or reaching back. No prior injuries to right shoulder or neck. No prior surgeries to the right shoulder. Had parathyroid surgery 3 out of 4 removed. Tends to have high blood calcium. No diabetes. X-RAY: 05/09/2023: Right shoulder x-rays were reviewed and discussed by me with the patient in detail today. Images reveal severe glenohumeral osteoarthritis with proximal migration of the humeral head and an inferior head osteophyte. There is posterior glenoid wear. MRI:PT: noneNSAIDS: Aleve prn (helps a little)INJECTION: none QUINTON ORTIZ MD [address] [place], [phone], [facility] 05/09/2023 12:51:59 11/09/19 24 text/htm l Hypertension is chronic, ongoing, stableHyperlipidemia is chronic, ongoing, stableChronic pain syndrome is ongoing, stableShe has had the problems for years ENZO WRIGHT MD [address] [place], [address], [facility] 11/09/2023 11:15:59 OBGyn Episode No OBEpisode recorded.
--- OUTSIDE RECORDS SUMMARY | 2024-09-01 18:56 | XMS_ITS | Data Portability ---
Author Organization [facility] and [facility] Address [address] [place] [address] Assessment No assessment recorded. Plan of Treatment Reminders Order Date Submit Date Provider Last Modified By Organization Details Last Modified Time Details Appointments OV EST 15 2024 10:30A M Ajit Richey Jr, MD Not available Not available Not available Lab urinalysi s, dipstick [address] Urology [address], [address], 12/07/2022 11:54:59 Referral None recorded. Procedures bladder scan (PROC) 2022 0[address] [facility] [address] [place] [address], [address], 12/07/2022 11:54:59 Surgeries None recorded. Imaging None recorded. Medication Orders methenami ne hippurate 1 gram tablet 2023 024 [facility] 591, [address], [address], 12/06/2023 11:07:13 ascorbic acid (vitamin C) 500 mg tablet 2023 024 [facility] 591, [address] [place], [address], 12/06/2023 11:07:12 ascorbic acid (vitamin C) 500 mg tablet 2022 023 [facility][id number], [address], [place], [address], 12/07/2022 14:19:53 Patient TargetsNo targets recorded. Patient InstructionsNo instructions recorded. Reason for Referral None Reported. Results Created Date Observation Date Name Description Value Unit Range Abnormal Flag Note LastModifiedBy Organization Detail LastModifiedTime 12/08/1912/07/2022 bladd er scan (PROC ) Calculated Residual Urine: 140ml Not Available [address], [address], 12/07/2022 11:34:23 12/08/19 23 12/07/2022 urina lysis , dipst ick Leukocytes (reference range) negati ve Not Available [address], [address], 12/07/2022 11:34:21 12/08/19 23 12/07/2022 urina lysis , dipst ick Nitrite (reference range:) negati ve Not Available [address], [address], 12/07/2022 11:34:21 12/08/19 23 12/07/2022 urina lysis , dipst ick Urobilinogen (reference range) 0.2 Not Available [address], [address], 12/07/2022 11:34:21 12/08/19 23 12/07/2022 urina lysis , dipst ick Protein (reference range) trace Not Available [address], [address], 12/07/2022 11:34:21 12/08/19 23 12/07/2022 urina lysis , dipst ick pH (reference range 5-8.5) 5.5 Not Available Cla rk [address], [address], 12/07/2022 11:34:21 12/08/19 23 12/07/2022 urina lysis , dipst ick Blood (reference range:) non-He molyze d: Trace Not Available [address], [address], 12/07/2022 11:34:21 12/08/19 23 12/07/2022 urina lysis , dipst ick Specific [place] (reference range) 1.020 Not Available [address], [address], 12/07/2022 11:34:21 12/08/19 23 12/07/2022 urina lysis , dipst ick Ketone (reference range) negati ve Not Available [address], [address], 12/07/2022 11:34:21 12/08/19 23 12/07/2022 urina lysis , dipst ick Bilirubin (reference range) negati ve Not Available [address], [address], 12/07/2022 11:34:21 12/08/19 23 12/07/2022 urina lysis , dipst ick Glucose (reference range) negati ve Not Available [address], [address], 12/07/2022 11:34:21 12/08/19 23 12/07/2022 urina lysis , dipst ick Color (reference range: yellow-brown ) Yellow Not Available [address], [address], 12/07/2022 11:34:21 Result Notes None recorded. Problems Name Problem SNOMED Code Status Onset Date Resolution Date Notes Provider Name and Address Organization Details Recorded Time Hypertensive disorder 83118450 Active 2022 TESSIE Lawson [place] [facility] [place] 3 10:23:52 Thyroiditis 95634296 Active 2022 TESSIE Lawson [place] [facility] [place] 3 10:23:57 Hyperchloremia 70735732 Active 2022 TESSIE Lawson [place] [facility] [place] 3 10:24:07 Arthritis 8200282 Active 2022 TESSIE Lawson [place] [facility] [place] 3 10:24:14 Problem Notes None recorded. Procedures Surgical History Date Name Laterality Status Provider Name and Address Organization Details Recorded Time Total Hysterectomy completed Ella FISHER [facility] [place] 12/07/2022 10:25:19 cholecystectomy completed Bipin FISHER [facility] [place] 12/07/2022 10:25:26 appendectomy completed Bipin FISHER [facility] [place] 12/07/2022 10:25:32 total replacement of hip completed Bipin FISHER [facility] [place] 12/07/2022 10:25:46 total knee replacement completed Bipin FISHER [facility] [place] 12/07/2022 10:27:00 parathyroidectomy completed Bipin FISHER [facility] & [place] 12/07/2022 10:27:09 Imaging Results None recorded. Procedure Notes None recorded. Medical Equipment None Reported. Allergies Allergen ID Allergen Name Allergen Category Reaction Reaction Severity Criticality Documentation Date Start Date Code Code System Note Provider Name and Address Organization Details Recorded Time 77070 Substance with sulfonami de structure and antibacte rial mechanism of action (substanc e) medicatio n Not available Not available Not available 12/07/2022 20617 8003 SNOMED TESSIE Lawson [place] [facility] [place] 3 10:23:07 Medications Name Sig Start Date Stop Date Status Note LastModified by Organization Details LastModified Time vitamin c 500mg tab TAKE 1 TABLET BY MOUTH THREE TIMES DAILY active Not Available Not Available Not Available losartan 50 mg tablet TAKE 1 TABLET BY MOUTH EVERY DAY active Not Available Not Available No t Available amoxicillin 500 mg capsule TAKE ALL FOUR CAPSULES ONE HOUR PRIOR TO DENTAL APPOINTMENT active Not Available Not Available Not Available gabapentin 600 mg tablet TAKE 1 TABLET BY MOUTH TWICE DAILY active Not Available Not Available No t Available meloxicam 15 mg tablet active Not Available Not Available No t Available phenazopyrid ine 200 mg tablet TAKE 1 TABLET BY MOUTH EVERY 8 HOURS FOR 2 DAYS active Not Available Not Available No t Available alendronate 70 mg tablet TAKE 1 TABLET BY MOUTH ONCE A WEEK IN THE MORNING active Not Available Not Available Not Available ciprofloxaci n 500 mg tablet TAKE 1 TABLET BY MOUTH TWICE DAILY FOR 7 DAYS active Not Available Not Available No t Available peg-electrol yte solution 420 gram oral solution TAKE DIRECTED active Not Available Not Available No t Available tramadol 50 mg tablet active Not Available Not Available No t Available simvastatin 40 mg tablet TAKE 1 TABLET BY MOUTH EVERY DAY active Not Available Not Available No t Available methenamine hippurate 1 gram tablet Take 1 tablet every day by oral route for 90 days. 2023 active Not Available Not Available Not Avai lable ascorbic acid (vitamin C) 500 mg tablet Take 1 tablet 3 times a day by oral route for 90 days. 2023 active Not Available Not Available Not Avai lable doxycycline monohydrate 100 mg capsule TAKE 1 CAPSULE BY MOUTH TWICE A DAY DIRECTED FOR 7 DAYS active Not Available Not Available N ot Available erythromycin 5 mg/gram (0.5 %) eye ointment APPLY A ONE-FOURTH INCH STRIP OF OINTMENT TWICE A DAY FOR THE 3 DAYS BEFORE BUT NOT DAY OF SURGERY active Not Available Not Available N ot Available venlafaxine 37.5 mg tablet TAKE 1 TABLET BY MOUTH EVERY DAY active Not Available Not Available No t Available omeprazole 20 mg capsule,pedro yed release active Not Available Not Available Not Available hydrochlorot hiazide 25 mg tablet TAKE 1 TABLET BY MOUTH EVERY DAY active Not Available Not Available No t Available cefdinir 300 mg capsule TAKE 1 CAPSULE BY MOUTH TWICE DAILY FOR 7 DAYS active Not Available Not Available No t Available amoxicillin 875 mg-potassium clavulanate 125 mg tablet TAKE 1 TABLET BY MOUTH EVERY 12 HOURS active Not Available Not Available No t Available ezetimibe 10 mg tablet TAKE 1 TABLET BY MOUTH EVERY DAY active Not Available Not Available No t Available nitrofuranto in monohydrate/ macrocrystal s 100 mg capsule TAKE 1 CAPSULE BY MOUTH EVERY 12 HOURS FOR 7 DAYS WITH A MEAL/FOOD active Not Available Not Available No t Available Eliquis 2.5 mg tablet active Not Available Not Available No t Available Vitals Date Recorded Body height Body mass index (BMI) Body weight Body temperature Provider Name and Address Organization Details Last Updated DateTime 12/06/2023 160.02 cm 34.5 kg/m2 94887.51 g 97.9 [degF] [facility] [place] 12/06/2023 10:41:14 Date Recorded Body height Body mass index (BMI) Body weight Body temperature Provider Name and Address Organization Details Last Updated DateTime 12/07/2022 160.02 cm 34.5 kg/m2 39145.51 g 97.6 [degF] [facility] [place] 12/07/2022 10:22:51 Social History None recorded. Functional Status Question Answer Note LastModified by Organization D etails LastModified Time What is your level of alcohol consumption? None [email or web address] Information not available 12/07/2022 Mental Status None recorded. Family History Relationship Description Onset Age of this Age Resolved Age Notes LastModified by Organization Details LastModified Time Mother Chronic obstructive pulmonary disease dec Not available 2022 10:24:38 Father Heart disease dec Not available 2022 10:24:50 Brother Family history unknown [email or web address] Not available 2022 10:24:59 Medical History No medical history recorded. Gynecological HistoryNo gynecological history recorded. Obstetrics History GPAL:G 0 P 0 0 0 0 Past Encounters Encounter ID Performer Location Encounter Start Date Encounter Closed Date Diagnosis/Indication Diagnosis SNOMED-CT Code Diagnosis ICD10 Code Diagnosis Note [id number] Ajit Richey Jr, MD [facility] Urology [address] [address] 12/07/2022 10:05:55 12/07/2022 10:56:57 Recurrent urinary tract infection 734337079 N39.0 Patient with recurrent urinary tract infections for several years. She is 2 recent urine cultures positive for E coli. Her risk factor includes aging and a bladder scan that shows 140 cc. She is been on methenamin e for years and we are going to add vitamin-C to help with its effectiven ess. We also discussed cranberry tablets. We also discussed increasing her fluid intake and trying to void at least every 2-3 hours. We also discussed coude maneuver to help empty her bladder. She has further UTI she is to follow-up. [id number] Ajit Richey Jr, MD [facility] Urology [address] [address] 12/06/2023 10:33:30 12/06/2023 11:06:37 Recurrent urinary tract infection 212679020 N39.0 Patient with recurrent urinary tract infections for several years. She Was previously seen at the [facility] with transferre care here a year ago. Her risk factor includes aging and a bladder scan that shows 140 cc. She is been on methenamin e for years and we are going to add vitamin-C to help with its effectiven ess. We also discussed cranberry tablets. We also discussed increasing her fluid intake and trying to void at least every 2-3 hours. We also discussed coude maneuver to help empty her bladder. She has further UTI she is to follow-up. Health Concerns Section Related Observation LastModified by Organization Detai ls LastModified Time None Recorded Concern Status LastModified by Organization Details LastModified Time None Recorded Advance Directives Directive None Recorded Payers Insurance Date Sequence Insurance Name Policy Number Policy Hensley Covered Member ID Hensley Member ID Guarantor Name 12/06/2023 2 [place] [id number] Ira Modiford [id number] Ira oMdiford 12/06/2023 1 [place] Ira Cardoso [id number] Ira Modiford 12/06/2023 [place] - [facility] (MEDICARE) Ira Modiford [id number] Ira Rodney Walker 12/06/2023 1 [place] [id number] Ira Modiford [id number] Ira Cardoso Notes Date Note Type Note Provider Name and Address Organization Details Recorded Time 12/07/2022 text/html Patient is a 72-year-old white female referred for recurrent urinary tract infections. She states she is had urinary tract infections for years. She states she is seen Urology at [facility] but he is wishing to change care. Her symptoms of urinary tract infections are that of urgency and some numbness in her lower arms and fingers. She denies any dysuria or hematuria. A urine culture in September 20 showed E coli. A urine culture on October 13 showed E coli as well. Her urinalysis today looks good. She is been on methenamine for several years but is not on vitamin-C with it. Her bladder scan today shows a residual of 140 cc. Ajit Richey Jr, MD [address] [place] [address], [address], [address], [facility] & [place] 12/07/2022 14:23:25 12/06/2023 text/html patient is a 73-year-old white female with history of recurrent urinary tract infections. She returns today for 1 year follow-up. She denies any urinary tract infections over the past year. She is continued on methenamine as prophylaxis but did not get the vitamin-C tablets filled last year. Previous workup included a bladder scan a year ago of 140 cc. We have discussed preventive measures including coude maneuver after she voids as well as timed voiding and drinking plenty of fluids. Her urinalysis is unremarkable today. States that if she drinks Coke that she has significant increase in lower urinary tract symptoms so she tries to avoid. Ajit Richey Jr, MD [address] [place] [address] Drive, [address], [place], [address], [facility] & [place] 12/06/2023 12:55:25 OBGyn Episode No OBEpisode recorded.
--- OUTSIDE RECORDS SUMMARY | 2024-09-01 18:56 | XMS_ITS | Clinical Summary ---
Author Organization [facility] Address [address] [place] [address] Care Team Providers Care Hemodialysis Lab Technician Name Role Phone Enzo Wright MD Primary Care Provider [phone] Allergies Active Allergy Reactions Criticality Noted Date Comments Sulfa Drugs Hives,Itching Medium 02/28/2017 Medications gabapentin (Neurontin) 600 MG tablet Take 1 tablet (600 mg) by mouth 2 (two) times a day. 7 Active losartan (Cozaar) 50 MG tablet Take 1 tablet (50 mg) by mouth every night. Active methenamine hippurate (Hiprex) 1 g tablet Take 1 tablet (1 g) by mouth 2 (two) times a day. Active simvastatin (Zocor) 40 MG tablet Take 1 tablet (40 mg) by mouth every night. 7 Active venlafaxine (Effoxor) 37.5 MG tablet Take 1 tablet (37.5 mg) by mouth 1 (one) time each day in the morning. 7 Active ezetimibe (Zetia) 10 MG tablet Take 1 tablet (10 mg) by mouth every night. 3 Active alendronate (Fosamax) 70 MG tablet Take 1 tablet (70 mg) by mouth every 7 (seven) days. Once weekly on MONDAY Active oxyCODONE (Roxicodone) 5 MG immediate release tablet Take 1 tablet (5 mg) by mouth every 6 (six) hours if needed for severe pain for up to 50 doses. 50 tablet 3 Active Additional Information Patient not taking.Reported on 12/04/2023 methocarbamol (Robaxin) 500 MG tablet Take 1 tablet (500 mg) by mouth 3 (three) times a day if needed for muscle spasms for up to 10 days. 30 tablet 3 Active apixaban (Eliquis) 2.5 MG tablet Take 1 tablet (2.5 mg) by mouth 2 (two) times a day. For 4 weeks post-op for blood clot prevention 56 tablet 3 Active acetaminophen (Tylenol Extra Strength) 500 MG tablet Take 2 tablets (1,000 mg) by mouth every 8 (eight) hours. 100 tablet 3 Active traMADol (Ultram) 50 MG tablet Take 1 tablet (50 mg) by mouth every 4 (four) hours if needed for severe pain. Take 1 or 2 tablets every 4-6 hours as needed for pain 60 tablet 3 Active Additional Information Patient not taking.Reported on 12/04/2023 Active Problems Problem Noted Date Diagnosed Date Primary osteoarthritis of left knee 08/01/2022 Overview (08/01/2022): Added automatically from request for surgery [id number] Obesity (BMI 35.0-39.9 without comorbidity) 10/2021 Severe obesity (BMI 35.0-39.9) with comorbidity 09/01/2021 Back pain 07/13/2018 S/P total hip arthroplasty 05/16/2018 Lumbar disc disease with radiculopathy 8 Moderate obesity 03/01/2018 Hip pain 02/05/2018 Bulging lumbar disc 12/21/2017 Overview (04/21/2021): multiple multiple Osteoarthritis, chronic 04/27/2017 Postmenopausal atrophic vaginitis 04/27/2017 Closed intertrochanteric fracture 03/21/2017 Family History Medical History Relation Name Comments Conversions - Other Father Patient' s mother is Heart attack Father Arthritis Mother Conversions - Other Mother Patient' s mother is Emphysema Mother Conversions - Other Other Urinary dysfunction Anesthesia problems Neg Hx Malig Hyperthermia Neg Hx Relation Name Status Comments Father Mother Other Social History Tobacco Use Types Packs/Day Years Used Date Smoking Tobacco: Never Smokeless Tobacco: Never Tobacco Cessation:Counseling Given: Not Answered Alcohol Use Standard Drinks/Week Comments Yes 0 (1 standard drink = 0.6 oz pur e alcohol) rare. Comments No Sex and Gender Information Value Date Recorded Sex Assigned at Not on file Legal Sex Female 5:56 PM EDT Gender Identity Not on file Sexual Orientation Not on file Last Filed Vital Signs Vital Sign Reading Time Taken Comments Blood Pressure 132/86 12/04/2023 9:55 AM EDT Pulse 61 12/04/2023 9:55 AM EDT Temperature 36.5 C (97.7 F) 10/05/2022 7:36 AM EDT Respiratory Rate 16 10/05/2022 7:36 AM EDT Oxygen Saturation 93% 12/04/2023 9:55 AM EDT Inhaled Oxygen Concentration - - Weight 85.7 kg (188 lb 15 oz) 12/04/2023 9:55 AM EDT Height 160 cm (5' 3 ) 11/21/2022 2:00 PM EDT Body Mass Index 33.47 11/21/2022 2:00 PM EDT Plan of Treatment Health Maintenance Due Date Last Done Comments [facility]-Depression Screening 1950 [facility]-Hepatitis C Screening 1950 [facility]-Medicare Annual Wellness (AWV) 1950 [facility]-Infant/Child/Adol SDOH Screenings 1950 [facility]- SDOH Screenings 11/25/1967 [facility]-Adult SDOH Screenings 11/25/1967 [facility]-DTaP,Tdap,and Td Vaccines (1 - Tdap) 1968 CT Colonography 1994 Colonoscopy 1994 FIT-DNA 1994 FIT 1994 FOBT 1994 Sigmoidoscopy 1994 [facility]-Colorectal Cancer Screening 1994 [facility]-Zoster Vaccines (2 of 2) 01/18/2022 11/23/2021 [facility]-Breast Cancer Screening 05/11/202304/27, 05/11/2021, 05/02/2019, Additional history exists [facility]-Bone Density Scan 06/22/2023 06/21/2022 [id number] Vaccine (3 - season) 2023 05/22/2020, 04/28/2020 [facility]-RSV Vaccine: 60+ Years or (1 - 1-dose 75+ series) 2024 [facility]-Influenza Vaccine (Season Ended) 2024 03/24/2023, 02/02/2022, 01/21/2020, Additional history exists [facility]-Pneumococcal Vaccine: 50+ Years Completed 02/02/2022, 01/09/2020, 01/08/2019 [facility]-Obesity Intervention Completed 024, 11/21/2022, 10/19/2022, Additional history exists HPV Vaccines Aged Out No longer eligi ble based on patient's age to complete this topic [facility]-HIB Vaccines Aged Out No longer e ligible based on patient's age to complete this topic [facility]-Hepatitis A Vaccines Aged Out No longer eligible based on patient's age to complete this topic [facility]-IPV Vaccines Aged Out No longer e ligible based on patient's age to complete this topic [facility]-Rotavirus Vaccines Aged Out No lo nger eligible based on patient's age to complete this topic Medical Devices Implanted Type Area System Software Developer Device Identifier Shelf Expiration Date Model / Serial / Lot Cement Palacos - [id number] Implanted:Qty: 2 on 10/04/2022 by Juan Salinas MD at [facility] Left: Knee [id number] 03/26/2027 [id number] / / [id number] Chg Femoral Legion Cr Nrrw Oxin Sz6 Lt - [id number] Implanted:Qty: 1 on 10/04/2022 by Juan Salinas MD at [facility] Left: Knee [employer]-[id number] 03/14/2032 [id number] / / [id number] Chg Tibial Gns Ii Cmt Size 4 L - [id number] Implanted:Qty: 1 on 10/04/2022 by Juan Salinas MD at [facility] Left: Knee [id number] 04/20/2032 [id number] / / [id number] Knee Insert Ii Dished Sz 3-4 9mm - [id number] Implanted:Qty: 1 on 10/04/2022 by Juan Salinas MD at [facility] Left: Knee [employer]-[id number] 05/05/2031 [id number] / / [id number] Chg Patella Gii Oval Resurfaci - [id number] Implanted:Qty: 1 on 10/04/2022 by Juan Salinas MD at [facility] Left: Knee [employer]-[id number] 03/29/2032 [id number] / / [id number] Insurance [facility]LY [facility] MEDICARE Advance Directives * Full Code (Latest Code Status on File) Date Activated Date Inactivated Comments 10/04/2022 9:17 AM 10/05/2022 3:34 PM Question Answer Comments Patient has decision-making capacity? Yes Care Teams Hemodialysis Lab Technician Relationship Specialty Start Date End Date Enzo Wright MD [id number] [phone] PCP - General 10/04/22
--- NOTE | 2024-09-01 19:00 | HMH.EDGENADL ---
Discharge Plan Disposition Patient Disposition: Home, Self-Care Prescriptions Prescriptions: New ondansetron 4 mg tablet,disintegrating 4 mg PO Q8H PRN (Reason: nausea and vomiting) 4 Days Qty: 12 0RF hydrocodone-acetaminophen 5-325 mg tablet 1 tab PO Q8H PRN (Reason: pain (scale score 7-10)) Qty: 12 0RF Rx Instructions: Please take only after you have taken 600 mg of ibuprofen and 500 mg of Tylenol and your symptoms are still uncontrolled. No Action losartan 50 mg tablet 50 mg PO DAILY Patient Comments: TAKE 1 TABLET BY MOUTH EVERY DAY ascorbate calcium (vitamin C) 500 mg tablet 500 mg PO TID semaglutide 0.25 mg or 0.5 mg (2 mg/3 mL) pen injector 0.25 mg SQ WEEKLY Qty: 3 0RF Rx Instructions: for 4 weeks ezetimibe 10 mg tablet 10 mg PO DAILY Qty: 90 1RF simvastatin 40 mg tablet 40 mg PO DAILY Qty: 90 1RF methenamine hippurate 1 gram tablet 1 g PO BID Qty: 180 1RF alendronate 70 mg tablet 70 mg PO WEEKLY Qty: 90 1RF gabapentin 600 mg tablet 600 mg PO BID Qty: 180 0RF venlafaxine 37.5 mg tablet See Rx Instructions .ROUTE .COMPLEX Qty: 90 0RF Dose Instruction: Take 1 tablet by mouth once daily Rx Instructions: Take 1 tablet by mouth once daily prednisone 20 mg tablet 40 mg PO DAILY 4 Days Qty: 8 0RF qyicrwumtgzbljv-bpeonpjnz-ND [Bromfed DM] 2-30-10 mg/5 mL syrup 5 ml PO Q6H PRN (Reason: cold symptoms) Qty: 118 0RF ondansetron 4 mg tablet,disintegrating 4 mg PO Q8H PRN (Reason: nausea and vomiting) 4 Days Qty: 12 0RF Referrals Follow up/Referrals: Dave Herrera MD [Primary Care Provider, Medical] - See instructions Activity Restrictions/Add. Instructions Additional Instructions/Restrictions: At this time it was felt you are safe to be discharged home. If new or worsening symptoms please do not hesitate to return the emergency department. Please call and schedule an appointment with Dr. Gerber as soon as you are able and for pain please take ibuprofen 600 mg every 6 hours with a little bit of food as well as Tylenol 500 mg every 6 hours at the same time. If your pain is severe after this please take your medication as prescribed on top of this. For your wounds please keep them moist with just a little bit of Vaseline at all times until they are healed (this will likely take weeks). It is okay to shower, do not get your splint wet however. 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 She had a mechanical fall in the parking lot at [facility] and fell onto an outstretched left hand with immediate deformity and pain at the wrist she also struck her face causing multiple wounds. No loss of consciousness. C-collar initiated in the field as well as Nathan splint for the left upper extremity. 50 mcg of fentanyl administrated en route. Patient is complaining of facial pain and wrist pain on the left but no other acute complaints at this time. Please note that above description of symptoms, in this electronic medical record under categorization of recalled from ER triage doctor by RN are reflective of an initial nursing assessment, however, is not reflective of my full history and physical exam that was personally taken and clarified. Consequentially, this preceding description of symptoms, which may include the patient's categorized chief complaint in the EMR, do not reflect my personal clinical impression, and the ultimate description of history of present illness and patient stated complaints should be deferred to this section of the note. Unless stated otherwise or congruent with this section of the note, additional signs, symptoms, or incongruence should be interpreted as inaccurate with my clinical impression. Related Data Home Medications ?Medication ?Instructions ?Recorded ?Confirmed losartan 50 mg tablet 50 mg PO DAILY 10/13/22 08/01/24 ascorbate calcium (vitamin C) 500 500 mg PO TID 12/20/23 08/01/24 mg tablet Previous Rx's ?Medication ?Instructions ?Recorded ezetimibe 10 mg tablet 10 mg PO DAILY #90 tabs 01/08/24 simvastatin 40 mg tablet 40 mg PO DAILY #90 tabs 01/26/24 uwdtyizngmsycoy-ffdxxpluwfhwgzx-DK 5 ml PO Q6H PRN cold symptoms #118 05/01/24 2 mg-30 mg-10 mg/5 mL oral syrup mL (Bromfed DM) ondansetron 4 mg disintegrating 4 mg PO Q8H PRN nausea and 05/01/24 tablet vomiting 4 days #12 tabs prednisone 20 mg tablet 40 mg (2 x 20 mg) PO DAILY 4 days 05/01/24 #8 tabs methenamine hippurate 1 gram tablet 1 g PO BID #180 tabs 05/17/24 alendronate 70 mg tablet 70 mg PO WEEKLY #90 tabs 06/10/24 gabapentin 600 mg tablet 600 mg PO BID #180 tabs 07/30/24 semaglutide 0.25 mg or 0.5 mg (2 0.25 mg (0.368 mL) SQ WEEKLY #3 mL 08/01/24 mg/3 mL) subcutaneous pen injector venlafaxine 37.5 mg tablet See Rx Instructions .Route 08/01/24 .COMPLEX #90 tabs hydrocodone 5 mg-acetaminophen 325 1 tab PO Q8H PRN pain (scale score 09/01/24 mg tablet 7-10) #12 tabs ondansetron 4 mg disintegrating 4 mg PO Q8H PRN nausea and 09/01/24 tablet vomiting 4 days #12 tabs Allergies Allergy/AdvReac Type Severity Reaction Status Date / Time Sulfa (Sulfonamide Allergy Verified 08/01/24 10:49 Antibiotics) [facility] Disclaimer: The information contained in this section may have been updated after the patient was seen, as this information can be updated by other users. 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 History of colonoscopy H/O thyroidectomy History of cholecystectomy History of appendectomy History of hysterectomy History of left knee replacement History of right hip replacement History of left hip replacement Social History Smoking Status: Never smoker alcohol intake: never current occupational status: employed Travel in the last 8 weeks?: None Have you lived/traveled outside US in past 30 days?: No Contact w/someone who lives/traveled outside US past 30 days?: No Exposure to someone with infectious disease in past 14 days?: No Do you have a fever (greater than 100.4 F or 38 C)?: No Have you tested positive for COVID-19?: No Exposed to someone with COVID-19 in past 14 days?: No Do you have a sore throat?: No Do you have a cough?: No Do you have any weakness?: No Do you have any diarrhea?: No Are you experiencing any unusual bleeding?: No Do you have any muscle aches/pain?: No Do you have any abdominal pain?: No Are you experiencing loss of taste or smell?: No Other Medical History Have you received the Flu Vaccine for this season: No Have you received the Pneumonia Vaccine: Yes ROS Obtained: Yes Systems reviewed as appropriate & no additional complaints except as documented Physical Exam General General appearance: alert and in no apparent distress Head Head exam: normocephalic and other (Abrasion over the right forehead, superficial laceration over the right lateral orbit and cheek, periorbital ecchymosis on the right.) Eye Eye exam: Present PERRL; Absent EOMI (Right-sided exotropia) ENT ENT exam: Present mucous membranes moist Neck Neck exam: Present normal inspection Chest Chest inspection: Present normal inspection and symmetric chest wall rise Respiratory Respiratory exam: Present normal lung sounds bilaterally; Absent respiratory distress Cardiovascular Cardiovascular exam: Present regular rate and normal rhythm Abdominal Exam Abdominal exam: Present soft; Absent tenderness Extremities Exam Extremities exam: Present other (Deformity of the left wrist, distally neurovascular intact, palpable left radial pulse) Neurological Exam Neurological exam: Present alert; Absent CN II-XII intact (Right-sided exotropia of the right eye otherwise grossly normal) Psychiatric Psychiatric exam: Present normal affect Skin Skin exam: Present warm and dry Medical Decision Making Medical Records Screening: Per USPSTF and CDC recommendations, given the prevalence of disease in our region, it is our hospital?s policy to screen for HIV and viral Hepatitis for all patients aged 18 and over and those with ongoing risk factors. Solomon Inquiry Pt receiving controlled substance: No Vital Signs: 09/01/24 18:55 Temperature 98.4 F Temperature Source Oral Pulse Rate [Right Radial] 70 Respiratory Rate 15 Blood Pressure [Right Arm] 92/60 L Blood Pressure Mean [Right Arm] 70 Blood Pressure Source [Right Arm] Automatic Cuff Blood Pressure Position [Right Arm] Supine 02 Sat by Pulse Oximetry 94 L Oxygen Delivery Method Room Air Orders (Tests/Meds): ED MEDICATIONS Discontinued Medications Generic Name Dose Route Start Last Admin Trade Name Freq PRN Reason Stop Dose Admin Bacitracin 1 each 09/01/24 22:53 09/01/24 23:00 Bacitracin Oint 0.9gm Udp TP 09/01/24 22:54 1 each ONCE ONE Administration Fentanyl Citrate 50 mcg 09/01/24 18:58 09/01/24 19:51 Fentanyl 100mcg/2ml Vial IV 09/01/24 18:59 50 mcg ONCE ONE Administration Fentanyl Citrate 50 mcg 09/01/24 21:53 09/01/24 21:56 Fentanyl 100mcg/2ml Vial IV 09/01/24 21:54 50 mcg ONCE ONE Administration Ondansetron HCl 4 mg 09/01/24 18:59 09/01/24 19:51 Ondansetron 4mg/2ml Vial IV 09/01/24 19:00 4 mg ONCE ONE Administration Oxycodone HCl 5 mg 09/01/24 22:49 09/01/24 23:00 Oxycodone 5mg Immediate Release Tablet PO 09/01/24 22:50 5 mg ONCE ONE Administration Tetanus/Reduced Diphtheria/Acell Pertussis 0.5 ml 09/01/24 19:00 09/01/24 19:52 Tet/Diphth/Pert-Adult 0.5ml Syringe IM 09/01/24 19:01 0.5 ml .ONCE ONE Administration ORDERS Category Date Time Status CT cervical spine wo con Stat Cat Scan 09/01/24 18:[address] chest wo con Stat Cat Scan 09/01/24 19:[address] facial bones wo con Stat Cat Scan 09/01/24 18:[address] head/brain wo con Stat Cat Scan 09/01/24 18:56 Completed Forearm XR left 2 views [XR forearm LT 2V] Stat Exams 09/01/24 18:56 Completed Hand XR left minimum 3 views [XR hand LT min 3V] Stat Exams 09/01/24 18:56 Completed Wrist XR left minimum 3 views [XR wrist LT min 3V] Stat Exams 09/01/24 18:56 Completed XR wrist LT 2V Stat Exams 09/01/24 21:43 Completed Medical Decision Narrative: In summary patient is a 73-year-old female with past medical history Justin above presents emergency department for evaluation of traumatic injury sustained in fall. Patient is hemodynamically stable nontoxic-appearing upon en route, afebrile. Obvious trauma to the face. C-spine precautions will be maintained, she has deformity of left upper extremity that is distally neurovascular intact emergent reduction prior to imaging is not warranted given that she is well-perfused. Patient will undergo emergent CT imaging of the head, neck, facial bones given that differential includes intracranial hemorrhage, facial fracture, among others. Tdap will be updated. Fentanyl citrate 50 mcg will be administered as well as 4 mg of Zofran IV. Remainder of trauma survey will be conducted with plain films of the left arm distal to the elbow. Other CT imaging of the thorax, back, abdomen, pelvis was considered however she is nontender on secondary survey with no external trauma will be deferred. Noncontrasted CT scan of the head no acute intracranial abnormality. CT cervical spine no acute fracture. Plain film of the wrist informally visualized by me there is no acute displaced fracture of the distal radius with volar displacement. Patient underwent hematoma block with reduction with success, wounds were cleaned at bedside. Tdap was updated bacitracin placed over the wounds and patient is appropriate for discharge at this time follow-up with Dr. Gerber on an outpatient basis. Procedure: Procedure performed was fracture reduction and splinting. Procedure performed by Vitor Brown. Hematoma block of the fracture site in the left distal radius conducted with 8 cc of lidocaine without epinephrine, 50 mcg of fentanyl IV was administered, pain control achieved. The fracture was distracted from the original force and axial traction was placed followed by dorsal pressure resulting in successful reduction on x-ray. Arm was splinted with 3 inch Ortho-Glass and sugar-tong fashion was placed in a sling distal capillary refill post splint check normal. Patient tolerated the procedure well there were no immediate complications. Critical Care Critical Care Time Critical Care Time: No
--- NOTE | 2024-09-01 19:11 | CT_ITS ---
PROCEDURE INFORMATION: Exam: CT Chest Without Contrast; Diagnostic Exam date and time: 09/01/2024 7:23 PM Age: 73 years old Clinical indication: Injury or trauma; Additional info: Fall TECHNIQUE: Imaging protocol: Diagnostic computed tomography of the chest without contrast. Radiation optimization: All CT scans at this facility use at least one of these dose optimization techniques: automated exposure control; mA and/or kV adjustment per patient size (includes targeted exams where dose is matched to clinical indication); or iterative reconstruction. COMPARISON: CR XR CHEST 2V 05/10/2024 4:43 PM FINDINGS: Limitations: Patient motion. Thyroid: Enlarged and heterogeneous thyroid with ill-defined nodules, ultrasound as clinically warranted. Lungs: Right middle lobe pulmonary nodule measures 6 mm and 4 mm right lower lobe pulmonary nodules. No airspace consolidation. No pulmonary contusion or laceration. Pleural spaces: Unremarkable. No pneumothorax. No pleural effusion. Heart: Unremarkable. No cardiomegaly. No pericardial effusion. Coronary arteries: Coronary artery calcification. Lymph nodes: Calcified mediastinal and left hilar lymph nodes. Vasculature: Aortic calcification without aneurysm. Bones/joints: Degenerative change involving the spine. Degenerative change involving the shoulders. L1 compression fracture is chronic in appearance. Soft tissues: Right-sided Bochdalek type hernia contains fat. IMPRESSION: 1. No acute abnormality involving the chest. 2. 6 and 4 mm pulmonary nodules at the right middle lobe. For patients at low risk (minimal or absent history of smoking and of other known risk factors), recommend CT Chest at 3-6 months, then consider CT Chest at 18-24 months. For patients at high risk (history of smoking or of other known risk factors), recommend CT Chest at 3-6 months, then CT Chest at 18-24 months. (Reference: Sam) 3. Enlarged and heterogeneous thyroid with ill-defined nodules, thyroid ultrasound as clinically warranted. COMMENTS: Consistent with the [employer]'s Incidental Findings Committee white paper (J Am Gayathri Radiol 2015): In patients aged 35 years and older with an incidental thyroid nodule equal to or greater than 1.[address], MRI or extrathyroidal US, further evaluation with dedicated thyroid US is recommended for patients with normal life expectancy and without comorbidities. For smaller nodules without suspicious features, no further evaluation or follow up is recommended. REFERENCES: Sam King et al. Guidelines for Management of Incidental Pulmonary Nodules Detected on CT Images: From the Fleischner Society 2017. Radiology. 2017;284(1):228-243.
[2024-09-01] MEDS: ONDANSETRON 4MG/2ML VIAL 4 MG IV (19:51)
[2024-09-01] MEDS: FENTANYL 100MCG/2ML VIAL 50 MCG IV ×2 (19:51→21:56)
[2024-09-01] MEDS: TET/DIPHTH/PERT-ADULT 0.5ML SYRINGE 0.5 ML IM (19:52)
--- NOTE | 2024-09-01 20:19 | PC.NURSE ---
Around 1914 Pt O2 sat decreased to 82%. Pt assessed and instructed to take deep breaths. No change noted. Pt placed on 2L NC. O2 sat increased to 97%. MD Brown notified. States to hold Fentanyl at that time. Pt was then accompanied to CT by this RN. No changes noted during scans. Pt taken back to room. Blood on face was cleaned. JOSEE elevated, and ice placed. Warm blanket provided. Call light in reach, family at bedside.
--- NOTE | 2024-09-01 21:43 | XR_ITS ---
PROCEDURE INFORMATION: Exam: XR Left Wrist Exam date and time: 09/01/2024 10:02 PM Age: 73 years old Clinical indication: Other: Post reduction; Additional info: Post reduce TECHNIQUE: Imaging protocol: Radiologic exam of the left wrist. Views: 1 or 2 views. COMPARISON: CR XR WRIST LT MIN 3V 09/01/2024 7:29 PM FINDINGS: Bones/joints: Again demonstrated is fracture of the distal radius with improved alignment. Mild residual displacement. Osteopenia. Degenerative change. Soft tissues: Normal. IMPRESSION: Interval significant improved alignment of distal radius fracture with mild residual displacement.
[2024-09-01] MEDS: OXYCODONE 5MG IMMEDIATE RELEASE TABLET 5 MG PO (23:00)
[2024-09-01] MEDS: BACITRACIN OINT 0.9GM UDP 1 EACH TP (23:00)
[2024-09-02] VITALS: BP 105/67; PULSE 76; RESP 18; TEMP 36.7; O2SAT 92
== END 2024-09-02 00:12 | disposition home or self-care (01) ==
PROVIDERS: Emergency Provider Emergency Medicine; PCP Internal Medicine
DX: S52.352A Displaced comminuted fracture of shaft of radius, left arm, initial encounter for closed fracture (principal); S09.93XA Unspecified injury of face, initial encounter; W18.39XA Other fall on same level, initial encounter
CPT/HCPCS: 29125; 70450; 70486; 71250; 72125; 73090; 73100; 73110; 73130; 90471; 90715; 96374; 96375; 96376; 99285; J2405; J3010

== ENCOUNTER 2024-09-04 11:27 | Outpatient (CLI) | payer MEDICARE, SELFPAY ==
--- OUTSIDE RECORDS SUMMARY | 2024-09-04 11:32 | XMS_ITS | Clinical Summary ---
Author Organization [facility] Address [address] [place] [address] Care Team Providers Care Chief Contract Officer Name Role Phone Enzo Wright MD Primary Care Provider [phone] Allergies Active Allergy Reactions Criticality Noted Date [...] (08/01/2022): Added automatically from request for surgery [id number] Obesity (BMI 35.0-39.9 without comorbidity) 10/2021 Severe [...] history exists UKY-Bone Density Scan 06/22/2023 06/21/2022 [id number] Vaccine (3 - season) 2023 05/22/2020, 04/28/2020 [...] this topic Medical Devices Implanted Type Area Fire Engineer Device Identifier Shelf Expiration Date Model / Serial / Lot Cement Palacos - [id number] Implanted:Qty: 2 on 10/04/2022 by Juan Salinas MD at [facility] Left: Knee [id number] 03/26/2027 [id number] / / [id number] Chg Femoral Legion Cr Nrrw Oxin Sz6 Lt - [id number] Implanted:Qty: 1 on 10/04/2022 by Juan Salinas MD at [facility] Left: Knee [employer]-[id number] 03/14/2032 [id number] / / [id number] Chg Tibial Gns Ii Cmt Size 4 L - [id number] Implanted:Qty: 1 on 10/04/2022 by Juan Salinas MD at [facility] Left: Knee [employer]-[id number] 04/20/2032 [id number] / / [id number] Knee Insert Ii Dished Sz 3-4 9mm - [id number] Implanted:Qty: 1 on 10/04/2022 by Juan Salinas MD at [facility] Left: Knee [employer]-[id number] 05/05/2031 [id number] / / [id number] Chg Patella Gii Oval Resurfaci - [id number] Implanted:Qty: 1 on 10/04/2022 by Juan Salinas MD at [facility] Left: Knee [employer]-[id number] 03/29/2032 [id number] / / [id number] Insurance [facility] MEDICARE Advance Directives * Full Code (Latest Code Status on File) Date Activated Date Inactivated Comments 10/04/2022 9:17 AM 10/05/2022 3:34 PM Question Answer Comments Patient has decision-making capacity? Yes Care Teams Chief Contract Officer Relationship Specialty Start Date End Date Enzo Wright MD [id number] [id number] PCP - General 10/04/22
--- NOTE | 2024-09-04 12:14 | ECG_ITS ---
APPROVED REPORT Exam: Resting ECG HR:78 bpm ECG Measurements Heart Rate 78 AXES ID 186 P 45 QRSd 84 QRS -12 QT 370 T 10 QTc 403 Conclusion SINUS RHYTHM LOW QRS VOLTAGE IN PRECORDIAL LEADS [QRS DEFLECTION < 1.0 mV IN CHEST LEADS] POSSIBLE ANTERIOR MYOCARDIAL INFARCTION , OF INDETERMINATE AGE [30 ms Q WAVE IN V3/V4, OR R < 0.2 mV IN V4] ABNORMAL ECG UNCONFIRMED REPORT Electronically signed by : Donaldo Barillas MD 09/05/2024 08:43:27
[2024-09-04 12:34] LABS: Basophils % 0.6 % (0.1-2.0); Eosinophils # 0.1 Kmm3 (0.0-0.4); Hematocrit 39.7 % (37.0-47.0); Hemoglobin 13.3 g/dL (12.2-16.2); Immature Granulocytes # 0.01 10^3uL; Immature Granulocytes % 0.1 %; Lymphocytes # 1.3 K/mm3 (0.7-4.5); Lymphocytes % 19.2 % (10-50); Mean Corpuscular HGB Conc 33.5 g/dL (31.8-35.4); Mean Corpuscular Hemoglobin 29.8 pg (27.0-31.2); Mean Platelet Volume 9.5 fl (7.4-10.4); Monocytes # 0.6 K/mm3 (0.1-1.0); Monocytes % 8.9 % (1.7-9.3); Neutrophils # 4.8 K/mm3 (1.8-7.8); Neutrophils % 69.2 % (37.0-80.0); Nucleated Red Blood Cells # 0 10^3/uL; Nucleated Red Blood Cells % 0 %; Platelet Count 192 K/mm3 (142-424); Red Blood Count 4.46 M/mm3 (4.20-5.40); Red Cell Distribution Width 13.2 % (11.5-17.5); Red Cell Distribution Width-SD 43.2 fL; White Blood Count 6.9 K/mm3 (4.8-10.8)
[2024-09-04 12:43] LABS: Chloride 106 mmol/L (98-107); Potassium 4.3 mmoL/L (3.5-5.1); Sodium 138 mmol/L (136-145)
[2024-09-04 12:45] LABS: Blood Urea Nitrogen 19 mg/dl (7-17); Estimated Glomerular Filt Rate 121 ml/min (>60); GFR (African American) 146 ML/MIN (>60)
[2024-09-04 12:46] LABS: Anion Gap 7.3 mEq/L (5-15); Calcium 10.8 mg/dl (8.4-10.2); Carbon Dioxide 29 mmol/L (22.0-30.0); Glucose 84 mg/dl (74-100)
== END 2024-09-04 23:59 | disposition home or self-care (01) ==
LOC: PREOP 11:28
PROVIDERS: Physician Assistant Surgical; PCP Internal Medicine; Visit Provider Orthopaedic Surgery
DX: S52.92XA Unspecified fracture of left forearm, initial encounter for closed fracture (principal); R94.31 Abnormal electrocardiogram [ECG] [EKG]
CPT/HCPCS: 80048; 85025; 93005

== ENCOUNTER 2024-09-06 06:07 | Day surgery (SDC) | payer MEDICARE, SELFPAY ==
[2024-09-04 14:38] VITALS: BMI 32.1
[2024-09-06] VITALS (11 sets, daily range): BP systolic 103–146; BP diastolic 64–110; PULSE 66–91; RESP 16–18; TEMP 36.2–43; O2SAT 90–97
[2024-09-06] MEDS: LACTATED RINGERS 1000ML 1,000 ML 25 ML IV (06:24)
--- NOTE | 2024-09-06 07:11 | EXP.ANES.CKL ---
[facility] Disclaimer: The information contained in this section may have been updated after the patient was seen, as this information can be updated by other users. Medical History Osteoporosis Acute bacterial tonsillitis Anxiety Hyperlipidemia Hypertension Urinary tract infection UTI (urinary tract infection) COVID-19 virus test result unknown Viral URI Surgical History History of lumbar surgery Hip joint replacement status History of colonoscopy H/O thyroidectomy History of cholecystectomy History of appendectomy History of hysterectomy History of left knee replacement History of right hip replacement History of left hip replacement Family History Other Family history of heart disease Social History Smoking Status: Never smoker alcohol intake: never substance use type: denies use current occupational status: employed and retired Travel in the last 8 weeks?: None [facility] Anesthesia Checklist Patient Identification Patient Identification: Arm Band Structural Data Admitted From: Home Planned Operative Procedure/s: ORIF Left Distal Radius Consent for Planned Operative Procedure(s) Verified: Yes Verified Documents: Surgical Consent and History and Physical NPO Status Verified Time NPO: 00:00 Additional verifications Anesthesia Reactions: No Hx Blood Transfusions: No Blood Transfusion Reaction: No Airway Assessment Mallampati Score:: Class II C-Spine Mobility Assessed: Yes TMJ Mobility Assessed: Yes Dentition: Good Dentition Neurological Assessment Level of Consciousness: Awake, Alert and Appropriate Anesthesia Plan Anesthesia Risk discussed: Yes Anesthesia Plan: Verified ASA Class: II Anesthesia Type: General w/block (Left Supraclavicular Nerve Block. Risks/benefits explained. Pt verbalized understanding)
--- NOTE | 2024-09-06 09:44 | XR_ITS ---
FINAL REPORT CLINICAL HISTORY: LT WRIST ORIF FT: 0.48 0.99 MGY FINDINGS: FLUOROSCOPY LESS THAN 1 HOUR HISTORY: Fluoroscopy guidance. FINDINGS: Fluoroscopic guidance was provided for left wrist ORIF. Two spot films were obtained. A total of 0.48 minutes of fluoroscopy time were used. DAP: 0.99 mGy IMPRESSION: As above. Reviewed, Interpreted and Dictated by Juni Giordano MD Transcribed by Fatou Baker Authenticated and [facility]
--- NOTE | 2024-09-06 09:46 | EXP.OP.NOTE ---
Date of procedure: 09/06/24 Pre-op Diagnosis:: Left distal radius fracture Post-op Diagnosis:: Same Procedure performed:: Open reduction internal fixation left distal radius fracture intra-articular 2 part with volar plating Surgeon:: Raad Gerber DO Fulfillment Mail Clerk(s):: Arnulfo CHAVEZ Anesthesia: GETA and regional Estimated blood loss (mL): 0 Operative findings:: Unstable distal radius fracture intra-articular to the radial ulnar joint Operative note:: Patient identified preoperatively. Left wrist marked with yes my initials. Transferred operative suite. After undergoing a block with anesthesia was placed upon the operating bed with a hand table general anesthesia administered airway secured. Left upper extremity was then prepped and draped normal sterile fashion. Once prepped and draped final operative timeout performed to identify proper patient procedure and extremity. Everyone involved in the case agreed. There is no counter indications beginning. Did receive preoperative antibiotics. Marking pen was used to rod planned incision over the volar wrist over the FCR tendon radial artery was marked. Esmarch was used to exsanguinate the extremity pneumatic tourniquet inflated to 250 mmHg. Skin knife was used incise through skin and careful dissection was taken down over the FCR tendon. The FCR tendon sheath was opened and retracted radially throughout the procedure to protect the radial artery. Floor of the FCR was opened and retractors were placed. Hematoma was present and evacuated. Pronator quadratus identified and cut in an L-type fashion off the distal radius. This exposed the fracture site where hematoma was again evacuated and the fracture site was cleaned with clean edges of the bone. This is a fracture of the is an oblique fracture going into the distal radial ulnar joint preliminary reduction was performed and identified on the x-ray and held with a K wire. And I selected a plate from the [employer] distal radius plate set. The distal locking screws were placed first reduction of the fracture site performed and cortical screw was placed for reduction of the plate to the shaft she gave good reduction and radial height of the fracture this was followed by locking screws in the proximal shaft cortical screw was then removed and replaced with a locking screw irrigation of the wound was performed x-rays taken the AP lateral and oblique views. Good reduction with radial height and neutral angulation obtained irrigation repeated deep layers closed with Vicryl 3-0 nylon the skin for closure sterile hand dressing placed with a well-padded volar splint patient patient in a sling taken recovery in stable condition. Condition: stable Disposition: PACU Complications:: None apparent
--- NOTE | 2024-09-06 09:51 | EXP.ANES.I ---
[facility] Anesthesia Record Part I Anesthesia Record I Intake, IV Amount: 1,000 Hydration: Adequate Estimated blood loss (mL): 10 Urine output (mL): 0 Blood Pressure: 146/83 SaO2: 95 Pulse Rate: 88 Airway Patency: Patent Respiratory Rate: 18 Temperature: 98.3 F Patient is:: Awake and Drowsy Stable to PACU at:: 09:56
--- NOTE | 2024-09-06 12:22 | P.PNANES_ITS ---
[facility] Anesthesia Record Part II Anesthesia Record Part II Discharge Time: 10:16 Destination: Surgical Day Care (OP Surgery) PACU nurse assessment reviewed?: Yes Patient Condition:: Good Anesthesia Complications:: None Swallowing reflex intact?: Yes Airway Patency: Patent Cyanosis?: No Blood Pressure: 117/75 SaO2: 94 Respiratory Rate: 16 Pulse Rate: 80 Temperature: 98.5 F Mental Status: Alert & Oriented Pain level:: 0 Nausea and/or vomitting:: None Intake, IV Amount: 0 Hydration: Adequate
== END 2024-09-06 11:00 | disposition home or self-care (01) ==
PROVIDERS: PCP Internal Medicine; Visit Provider Orthopaedic Surgery
PROC: (CPT 25608; principal; 2024-09-06 07:30)
DX: S52.572A Other intraarticular fracture of lower end of left radius, initial encounter for closed fracture (principal); I10 Essential (primary) hypertension; E78.5 Hyperlipidemia, unspecified; Z88.2 Allergy status to sulfonamides; Z79.899 Other long term (current) drug therapy; W19.XXXA Unspecified fall, initial encounter; Y92.481 Parking lot as the place of occurrence of the external cause
CPT/HCPCS: 25608; 73100; 76000; C1713; J1100; J2003; J2250; J2371; J2405; J2704; J3010; J7120

== ENCOUNTER 2024-09-16 09:36 | Emergency (ER) | payer MEDICARE, SELFPAY ==
[2024-09-16] VITALS (9 sets, daily range): BP systolic 115–141; BP diastolic 74–85; PULSE 79–92; RESP 16–18; TEMP 36.9–37.4; O2SAT 93–97; BMI 31.8
[2024-09-16 09:49] LABS: Microscopic, Urine URINE MICROSCOPIC (MICROSCOPIC)
[2024-09-16 09:52] LABS: Appearance,Urine CLEAR (Clear); Bilirubin,Urine Negative (Negative); Blood, Urine TRACE-I (Negative); Color,Urine YELLOW (Yellow); Glucose,Urine (UA) Negative (Negative); Ketones,Urine Negative (Negative); Leukocyte Esterase,Urine TRACE (Negative); Nitrate,Urine Negative (Negative); Protein,Urine TRACE (Negative); Specific Gravity, Urine 1.015 (1.005-1.030)
--- OUTSIDE RECORDS SUMMARY | 2024-09-16 09:57 | XMS_ITS | Data Portability ---
Author Organization [facility] LEANNE DiazS HAMLIN CLOSED Address [address] [place] [address] Care Team Providers Care Commercial Field Inspector Name Role Phone MALA WEBB Urologist ENZO WRIGHT Referring Provider ENZO WRIGHT Primary Care Provider [phone] ROBERT BOATENG Referring Provider Assessment Encounter Date Assessment Date Assessment LastModified [...] , serum or plasma 2023 025 [email or web address] [facility], [address] [place] [address], [address], 5 07:45:07 vitamin D, 25-hydr oxy, total, serum 2023 025 [email or web address] [facility], [address] [place] [address], [address], 5 07:45:07 toxicol ogy screen, urine [email or web address] [facility], [address] [place] [address], [address], 5 07:45:07 CMP, serum or plasma [email or web address] [facility], [address] [place] [address], [address], 5 07:45:07 CBC w/ auto diff [email or web address] [facility], [address] [place] [address], [address], 5 07:45:07 lipid panel, serum [address] [facility], [address] [place] [address], [address], 5 07:45:07 TSH, serum, reflex free T4 [address] [facility], [address] [place] [address], [address], 5 07:45:07 toxicol ogy screen, urine 2023 024 [facility], [address] [place] [address], [address], 4 06:49:00 lipid panel, serum 2023 024 [facility], [address] [place] [address], [address], 4 11:25:21 PTH (parath yroid hormone ), intact + calcium , serum or plasma 2023 024 [facility], [address] [place] [address], [address], 4 11:34:47 vitamin D, 25-hydr oxy, total, serum 2023 024 [facility], [address] [place] [address], [address], 4 11:43:00 CMP, serum or plasma 2023 024 [facility], [address] [place] [address], [address], 4 11:25:19 CBC w/ auto diff 2023 024 [email or web address] 3 [facility], [address] [place] [address], [address], 4 08:11:24 hepatit is C liver status biomark er panel, serum 2022 023 [facility], [address] [place] [address], [address], 3 05:09:10 toxicol ogy screen, urine 2022 023 [facility], [address] [place] [address], [address], 3 06:26:20 toxicol ogy screen, urine 2022 024 [facility], [address] [place] [address], [address], 4 09:53:11 lipid panel, serum 2022 024 [facility], [address] [place] [address], [address], 4 11:43:17 PTH (parath yroid hormone ), intact + calcium , serum or plasma 2022 023 [facility], [address] [place] [address], [address], 3 15:08:33 PTH (parath yroid hormone ), intact + calcium , serum or plasma 2022 024 [facility], [address] [place] [address], [address], 4 11:53:55 CMP, serum or plasma 2022 023 [facility], [address] [place] [address], [address], 3 12:57:06 CBC w/ auto diff 2022 023 [facility], [address] [place] [address], [address], 3 12:30:09 CMP, serum or plasma 2022 024 [facility], [address] [place] [address], [address], 4 11:43:15 CBC w/ auto diff 2022 024 [facility], [address] [place] [address], [address], 4 11:10:16 toxicol ogy screen, urine 2022 023 [email or web address] 3 [facility], [address] [place] [address], [address], 3 08:36:06 toxicol ogy screen, urine 2022 023 [email or web address] [facility], [address] [place] [address], [address], 3 07:48:06 lipid panel, serum 2022 023 [email or web address] 3 [facility], [address] [place] [address], [address], 3 08:36:06 vitamin D, 25-hydr oxy, total, serum 2022 023 [email or web address] [address] [place] [address] Laboratory, [address] [place] [address], [address], 3 08:36:06 PTH (parath yroid hormone ), intact + calcium , serum or plasma [address] [facility], [address] [place] [address], [address], 3 08:36:06 vitamin D, 25-hydr oxy, total, serum 2022 023 [facility] [address] [place] [address], [address], 3 15:08:34 PTH (parath yroid hormone ), intact + calcium , serum or plasma [email or web address] [place] [address], [address] [place] [address], [address], 3 07:48:05 CMP, serum or plasma [address], [address] [place] [address], [address], 3 08:36:05 CBC w/ auto diff [address], [address] [place] [address], [address], 3 08:36:05 CMP, serum or plasma [email or web address], [address] [place] [address], [address], 3 07:48:05 CBC w/ auto diff [email or web address], [address] [place] [address], [address], 3 07:48:05 Referral gastroe nterolo gist referra l 2023 024 [email or web address] 91 [facility], [address] [facility], [facility] [address], [place], [address], 4 07:52:03 orthope dic surgeon referra l 2023 024 [email or web address] Quinton Ortiz MD, [address] [place], [address], 4 09:55:51 gastroe nterolo gist referra l 2022 023 [email or web address] 91 [facility], [address] [facility], [place] [address], [place], [address], 3 07:51:29 gastroe nterolo gist referra l 2022 023 [email or web address] [facility], [address] [facility], [place] [address], [place], [address], 3 11:02:52 Procedures None recorde d. Surgeries None recorde d. Imaging None recorde d. Medication Orders gabapen tin 600 mg tablet 2023 024 [facility], [address], [address], 4 11:11:33 alendro leah 70 mg tablet 2023 024 [facility], [address], [address], 4 09:45:56 gabapen tin 600 mg tablet 2023 024 [facility], [address], [address], 4 09:46:06 gabapen tin 600 mg tablet 2022 023 [id number], [address] [place], [address], 11:32:27 gabapen tin 600 mg tablet 2022 023 [id number], [address] [place], [address], 10:31:45 Patient TargetsNo targets recorded. Patient Instructions Encounter Date Encounter Id Patient Instructions Last Modified By Organization Details Last Modified Time 08/03/2022 [id number] weight managemen t education [email or web address] Not available 08/03/2022 10:31:35 scripts reviewed risks/benefits reviewed high risk meds reviewed check labs continue current medication continue to monitor labs colonoscopy ordered again rtc 3 months with labs and prn [email or web address] Not available 08/03/2022 10:30:37 11/10/2022 [id number] scripts reviewed risks/benefits reviewed high risk meds reviewed labs when fasting continue current medication continue to monitor labs follow up with endocrinology colonoscopy ordered again mammograms rtc 6 months with labs MWV and prn [email or web address] Not available 11/10/2022 11:29:58 05/04/2023 [id number] advance care planning: care instructions [email or web address] Not available 05/04/2023 09:45:40 preventing falls : care instructions [email or web address] Not available 05/04/2023 09:45:40 labs reviewed scripts reviewed risks/benefits reviewed high risk meds reviewed continue current medication continue to monitor labs mammograms ordered again colonoscopy ordered again rtc 6 months with labs and prn dbeiting Not available 05/03/2023 06:51:52 05/09/2023 [id number] Reviewed and discussed with the patient her [...] PRN [email or web address] Not available 05/09/2023 11:44:31 11/09/2023 [id number] scripts reviewed risks/benefits reviewed high risk meds reviewed labs were drawn this morning continue current medication continue to monitor labs rtc 6 months with labs MWV and prn [email or web address] Not available 11/09/2023 11:08:32 Reason for Referral Research Consultant Referral for Screening for malignant neoplasm of colon Referring Physician: Enzo Wright, Internal Medicine, Encounter Date: 08/03/2022 Research Consultant Referral for Screening for malignant neoplasm of colon Referring Physician: Enzo Wright Internal Medicine, Encounter Date: 11/10/2022 Research Consultant Referral for Screening for malignant neoplasm of colon Referring Physician: Enzo Wright Internal Medicine, Encounter Date: 05/04/2023 Orthopedic Surgeon Referral for Pain of right shoulder joint Referring Physician: Enzo Wright Internal Medicine, Encounter Date: 05/04/2023 Results Created Date Observation Date Name Description Value Unit Range Abnormal Flag Note LastModifiedBy Organization Detail LastModifiedTime 11/11/1911/10/2022 COMPL ETE BLOOD COUNT white blood cells 6.0 10*3/ uL 3.8-10 .8 normal Not Available [facility] [address] [place], [address], 11/10/2022 12:30:09 11/11/19 23 11/10/2022 COMPL ETE BLOOD COUNT red blood cells 4.31 10*6/ uL 3.80-5 .20 normal Not Available [facility] [address] [place], [address], 11/10/2022 12:30:09 11/11/19 23 11/10/2022 COMPL ETE BLOOD COUNT hemoglobin 12.4 g/dL 12.0-1 6.0 normal Not Available [facility] [address] [place] [address], [address], 11/10/2022 12:30:09 11/11/19 23 11/10/2022 COMPL ETE BLOOD COUNT hematocrit 37.0 % 35.0-4 7.0 normal Not Available [facility] [address] [place] [address], [address], 11/10/2022 12:30:11/11/19 23 11/10/2022 COMPL ETE BLOOD COUNT MCV 86 fL 80-100 normal Not Available [facility] [address] [place] [address], [address], 11/10/2022 12:30:11/11/19 23 11/10/2022 COMPL ETE BLOOD COUNT MCH 29 pg 26-35 normal Not Available [facility] [address] [place] [address], [address], 11/10/2022 12:30:11/11/19 23 11/10/2022 COMPL ETE BLOOD COUNT MCHC 34 g/dL 32-36 normal Not Available [facility] [address] [place] [address], [address], 11/10/2022 12:30:11/11/19 23 11/10/2022 COMPL ETE BLOOD COUNT RDW 14.2 % 11.0-1 5.0 normal Not Available [facility] [address] [place] [address], [address], 11/10/2022 12:30:11/11/19 23 11/10/2022 COMPL ETE BLOOD COUNT MPV 7.0 fL 6.2-10 .5 normal Not Available [facility] [address] [place] [address], [address], 11/10/2022 12:30:11/11/19 23 11/10/2022 COMPL ETE BLOOD COUNT platelet count 299 10*3/ uL 130-40 0 normal Not Available [facility] [address] [place] [address], [address], 11/10/2022 12:30:09 11/11/19 23 11/10/2022 COMPL ETE BLOOD COUNT neutrophil,a bsolute 3.4 10*3/ uL 1.6-8. 4 normal Not Available [facility] [address] [place] [address], [address], 11/10/2022 12:30:11/11/19 23 11/10/2022 COMPL ETE BLOOD COUNT lymphocyte,a bsolute 1.9 10*3/ uL 0.4-5. 1 normal Not Available [facility] [address] [place] [address], [address], 11/10/2022 12:30:11/11/19 23 11/10/2022 COMPL ETE BLOOD COUNT monocyte,abs olute 0.5 10*3/ uL 0.0-1. 2 normal Not Available [facility] [address] [place] [address], [address], 11/10/2022 12:30:11/11/19 23 11/10/2022 COMPL ETE BLOOD COUNT eosinophil,a bsolute 0.1 10*3/ uL 0.0-0. 8 normal Not Available [facility] [address] [place] [address], [address], 11/10/2022 12:30:09 11/11/19 23 11/10/2022 COMPL ETE BLOOD COUNT basophil,abs olute 0.1 10*3/ uL 0.0-0. 3 normal Not Available [facility] [address] [place] [address], [address], 11/10/2022 12:30:11/11/19 23 11/10/2022 COMPL ETE BLOOD COUNT % neutrophils 57.3 % 42.0-7 8.0 normal Not Available [facility] [address] [place] [address], [address], 11/10/2022 12:30:09 11/11/19 23 11/10/2022 COMPL ETE BLOOD COUNT % lymphocytes 31.6 % 11.0-4 7.0 normal Not Available [facility] [address] [place] [address], [address], 11/10/2022 12:30:11/11/19 23 11/10/2022 COMPL ETE BLOOD COUNT % monocytes 9.0 % 0.0-11 .0 normal Not Available [facility] [address] [place] [address], [address], 11/10/2022 12:30:11/11/19 23 11/10/2022 COMPL ETE BLOOD COUNT % eosinophils 1.1 % 0.0-7. 0 normal Not Available [facility] [address] [place] [address], [address], 11/10/2022 12:30:09 11/11/19 23 11/10/2022 COMPL ETE BLOOD COUNT % basophils 1.0 % 0.0-3. 0 normal Not Available [facility] [address] [place] [address], [address], 11/10/2022 12:30:09 11/11/19 23 11/10/2022 COMPL ETE BLOOD COUNT nucleated red cells 0.0 % 0.0-0. 9 normal Not Available [facility] [address] [place] [address], [address], 11/10/2022 12:30:11/11/19 23 11/10/2022 COMPL ETE BLOOD COUNT nucleated RBCs, absolute 0.00 10*3/ uL not estab. normal Not Available [facility] [address] [place] [address], [address], 11/10/2022 12:30:11/11/19 23 11/10/2022 COMP. METAB OLIC PANEL glucose 95 mg/dL 74-100 normal Not Available [facility] [address] [place] [address], [address], 11/10/2022 12:57:05 11/11/19 23 11/10/2022 COMP. METAB OLIC PANEL blood urea nitrogen 8 mg/dL 6-20 normal Not Available [facility] [address] [place] [address], [address], 11/10/2022 12:57:05 11/11/19 23 11/10/2022 COMP. METAB OLIC PANEL creatinine 0.59 mg/dL 0.50-0 .95 normal Not Available [facility] [address] [place] [address], [address], 11/10/2022 12:57:05 11/11/19 23 11/10/2022 COMP. METAB OLIC PANEL BUN/creatini ne ratio 14 (calc ) 10-20 normal Not Available [facility] [address] [place] [address], [address], 11/10/2022 12:57:05 11/11/19 23 11/10/2022 COMP. METAB OLIC PANEL sodium 141 mmol/ L 136-14 5 normal Not Available [facility] [address] [place] [address], [address], 11/10/2022 12:57:05 11/11/19 23 11/10/2022 COMP. METAB OLIC PANEL potassium 3.9 mmol/ L 3.4-5. 0 normal Not Available [facility] [address] [place] [address], [address], 11/10/2022 12:57:05 11/11/19 23 11/10/2022 COMP. METAB OLIC PANEL chloride 104 mmol/ L 98-107 normal Not Available [facility] [address] [place] [address], [address], 11/10/2022 12:57:05 11/11/19 23 11/10/2022 COMP. METAB OLIC PANEL carbon dioxide 27 mmol/ L 22-31 normal Not Available [facility] [address] [place] [address], [address], 11/10/2022 12:57:05 11/11/19 23 11/10/2022 COMP. METAB OLIC PANEL anion gap 10 (calc ) 7-25 normal Not Available [facility] [address] [place] [address], [address], 11/10/2022 12:57:05 11/11/19 23 11/10/2022 COMP. METAB OLIC PANEL calcium 10.9 mg/dL 8.6-10 .2 high Not Available [facility] [address] [place] [address], [address], 11/10/2022 12:57:05 11/11/19 23 11/10/2022 COMP. METAB OLIC PANEL total protein 7.5 g/dL 6.4-8. 3 normal Not Available [facility] [address] [place] [address], [address], 11/10/2022 12:57:05 11/11/19 23 11/10/2022 COMP. METAB OLIC PANEL albumin 4.2 g/dL 3.5-5. 2 normal Not Available [facility] [address] [place] [address], [address], 11/10/2022 12:57:05 11/11/19 23 11/10/2022 COMP. METAB OLIC PANEL globulin 3.3 1.5-4. 5 normal Not Available [facility] [address] [place] [address], [address], 11/10/2022 12:57:05 11/11/19 23 11/10/2022 COMP. METAB OLIC PANEL albumin/glob ulin ratio 1.3 (calc ) 1.1-2. 5 normal Not Available [facility] [address] [place] [address], [address], 11/10/2022 12:57:05 11/11/19 23 11/10/2022 COMP. METAB OLIC PANEL bilirubin, total 0.5 mg/dL 0.1-1. 2 normal Not Available [facility] [address] [place] [address], [address], 11/10/2022 12:57:05 11/11/19 23 11/10/2022 COMP. METAB OLIC PANEL alkaline phosphatase 94 U/L 30-121 normal Not Available [facility] [address] [place] [address], [address], 11/10/2022 12:57:05 11/11/19 23 11/10/2022 COMP. METAB OLIC PANEL AST 32 U/L 0-32 normal Not Available [facility] [address] [place] [address], [address], 11/10/2022 12:57:05 11/11/19 23 11/10/2022 COMP. METAB OLIC PANEL ALT 25 U/L 0-33 normal Not Available [facility] [address] [place] [address], [address], 11/10/2022 12:57:05 11/11/19 23 11/10/2022 COMP. METAB OLIC PANEL GFR 95 >= 60 normal NOT E New calcu latio n for GFR (CKD- EPI 2020) is formu lated witho ut race adjus tment facto rs at the [facility] menda tion of the [employer] and [employer] of Nephr ology . This calcu latio n has not been valid ated in pregn ant women . For pedia tric patie nts refer to https ://jose verde.jayden garcia.o rg/pr pauless ional s/KDO QI/gf r_cal culat orPed Not Available [facility] [address] [place] [address], [address], 11/10/2022 12:57:05 11/11/19 23 11/10/2022 PTH, INTAC [...] ===== ===== ===== ===== ==== Not Available [facility] [address] [place] [address], [address], 11/10/2022 16:04:18 11/11/19 23 11/10/2022 PTH, INTAC T WITH CA calcium 10.6 mg/dL 8.6-10 .2 high Not Available [facility] [address] [place] [address], [address], 11/10/2022 16:04:18 11/11/19 23 11/10/2022 VITAM IN D 25-OH vitamin D 25-oh, total 20 NG/mL >=30 NG/mL abnormal Not Available [facility] [address] [place] [address], [address], 11/10/2022 15:08:34 11/11/19 23 11/11/2022 MAI FIBRO SURE mai fibrosis score -1.303 normal Not Available [facility] [address] [place] [address], [address], 11/11/2022 05:45:29 11/11/19 23 11/11/2022 MAI FIBRO [...] NAFLD Fibro sis Score . Not Available [facility] [address] [place] [address], [address], 11/11/2022 05:45:29 11/11/19 23 11/11/2022 MAI FIBRO SURE glucose 90 mg/dL 65-99 normal Fasti ng refer ence inter laurie Not Available [facility] [address] [place] [address], [address], 11/11/2022 05:45:29 11/11/19 23 11/11/2022 MAI FIBRO SURE AST 30 U/L 10-35 normal Not Available [facility] [address] [place] [address], [address], 11/11/2022 05:45:29 11/11/19 23 11/11/2022 MAI FIBRO SURE ALT 23 U/L 6-29 normal Not Available [facility] [address] [place] [address], [address], 11/11/2022 05:45:29 11/11/19 23 11/11/2022 MAI FIBRO SURE platelet count 296 thous and/u L 140-40 0 normal Not Available [facility] [address] [place] [address], [address], 11/11/2022 05:45:29 11/11/1911/11/2022 MAI FIBRO SURE albumin 4.2 g/dL 3.6-5. 1 normal Not Available [facility] [address] [place] [address], [address], 11/11/2022 05:45:29 11/11/1911/11/2022 MAI FIBRO SURE calculated BMI 32.3 normal Not Available [facility] [address] [place] [address], [address], 11/11/2022 05:45:29 11/11/19 23 11/11/2022 URINE DRUG SCREE N amphetamines NEGATI VE NG/mL <500 normal Not Available [facility] [address] [place] [address], [address], 11/11/2022 06:26:20 11/11/19 23 11/11/2022 URINE DRUG SCREE N barbiturates NEGATI VE NG/mL <300 normal Not Available [facility] [address] [place] [address], [address], 11/11/2022 06:26:20 11/11/19 23 11/11/2022 URINE DRUG SCREE N benzodiazepi don NEGATI VE NG/mL <100 normal Not Available [facility] [address] [place] [address], [address], 11/11/2022 06:26:20 11/11/19 23 11/11/2022 URINE DRUG SCREE N marijuana metabolite NEGATI VE NG/mL <20 normal Not Available [facility] [address] [place] [address], [address], 11/11/2022 06:26:20 11/11/19 23 11/11/2022 URINE DRUG SCREE N cocaine metabolite NEGATI VE NG/mL <150 normal Not Available [facility] [address] [place] [address], [address], 11/11/2022 06:26:20 11/11/19 23 11/11/2022 URINE DRUG SCREE N methadone metabolite NEGATI VE NG/mL <100 normal Not Available [facility] [address] [place] [address], [address], 11/11/2022 06:26:20 11/11/19 23 11/11/2022 URINE DRUG SCREE N opiates NEGATI VE NG/mL <100 normal Not Available [facility] [address] [place] [address], [address], 11/11/2022 06:26:20 11/11/19 23 11/11/2022 URINE DRUG SCREE N oxycodone NEGATI VE NG/mL <100 normal Not Available [facility] [address] [place] [address], [address], 11/11/2022 06:26:20 11/11/19 23 11/11/2022 URINE DRUG SCREE N phencyclidin e NEGATI VE NG/mL <25 normal Not Available [facility] [address] [place] [address], [address], 11/11/2022 06:26:20 11/11/19 23 11/11/2022 URINE DRUG SCREE N creatinine 85.2 mg/dL > or = 20.0 normal Not Available [facility] [address] [place] [address], [address], 11/11/2022 06:26:20 11/11/19 23 11/11/2022 URINE DRUG SCREE N specific gravity 1.015 > or = 1.003 normal Not Available [facility] [address] [place] [address], [address], 11/11/2022 06:26:20 11/11/19 23 11/11/2022 URINE DRUG SCREE N pH 5.3 4.5-9. 0 normal Not Available [facility] [address] [place] [address], [address], 11/11/2022 06:26:20 11/11/19 23 11/11/2022 URINE DRUG SCREE N oxidant NEGATI VE mcg/m L <200 normal Not Available [facility] [address] [place] [address], [address], 11/11/2022 06:26:20 11/11/19 23 11/11/2022 URINE DRUG [...] ders needi ng Inter preta tion meh[place] e conta ct us at 1.877 .40.R XTOX (1.87 7.407 .9869 ) M-F, 8am to 10pm EST Not Available [facility] [address] [place] [address], [address], 11/11/2022 06:26:20 05/02/19 24 05/02/2023 COMPL ETE BLOOD COUNT white blood cells 4.2 10*3/ uL 3.8-10 .8 normal Not Available [facility] [address] [place] [address], [address], 05/02/2023 11:10:15 05/02/19 24 05/02/2023 COMPL ETE BLOOD COUNT red blood cells 5.04 10*6/ uL 3.80-5 .20 normal Not Available [facility] [address] [place] [address], [address], 05/02/2023 11:10:15 05/02/19 24 05/02/2023 COMPL ETE BLOOD COUNT hemoglobin 14.5 g/dL 12.0-1 6.0 normal Not Available [facility] [address] [place] [address], [address], 05/02/2023 11:10:15 05/02/19 24 05/02/2023 COMPL ETE BLOOD COUNT hematocrit 42.8 % 35.0-4 7.0 normal Not Available [facility] [address] [place] [address], [address], 05/02/2023 11:10:15 05/02/19 24 05/02/2023 COMPL ETE BLOOD COUNT MCV 85 fL 80-100 normal Not Available [facility] [address] [place] [address], [address], 05/02/2023 11:10:15 05/02/19 24 05/02/2023 COMPL ETE BLOOD COUNT MCH 29 pg 26-35 normal Not Available [facility] [address] [place] [address], [address], 05/02/2023 11:10:15 05/02/19 24 05/02/2023 COMPL ETE BLOOD COUNT MCHC 34 g/dL 32-36 normal Not Available [facility] [address] [place] [address], [address], 05/02/2023 11:10:15 05/02/19 24 05/02/2023 COMPL ETE BLOOD COUNT RDW 14.4 % 11.0-1 5.0 normal Not Available [facility] [address] [place] [address], [address], 05/02/2023 11:10:15 05/02/19 24 05/02/2023 COMPL ETE BLOOD COUNT MPV 7.6 fL 6.2-10 .5 normal Not Available [facility] [address] [place] [address], [address], 05/02/2023 11:10:15 05/02/19 24 05/02/2023 COMPL ETE BLOOD COUNT platelet count 207 10*3/ uL 150-40 0 normal Not Available [facility] [address] [place] [address], [address], 05/02/2023 11:10:15 05/02/19 24 05/02/2023 COMPL ETE BLOOD COUNT neutrophil,a bsolute 2.4 10*3/ uL 1.6-8. 4 normal Not Available [facility] [address] [place] [address], [address], 05/02/2023 11:10:15 05/02/19 24 05/02/2023 COMPL ETE BLOOD COUNT lymphocyte,a bsolute 1.2 10*3/ uL 0.4-5. 1 normal Not Available [facility] [address] [place] [address], [address], 05/02/2023 11:10:15 05/02/19 24 05/02/2023 COMPL ETE BLOOD COUNT monocyte,abs olute 0.4 10*3/ uL 0.0-1. 2 normal Not Available [facility] [address] [place] [address], [address], 05/02/2023 11:10:15 05/02/19 24 05/02/2023 COMPL ETE BLOOD COUNT eosinophil,a bsolute 0.1 10*3/ uL 0.0-0. 8 normal Not Available [facility] [address] [place] [address], [address], 05/02/2023 11:10:15 05/02/19 24 05/02/2023 COMPL ETE BLOOD COUNT basophil,abs olute 0.1 10*3/ uL 0.0-0. 3 normal Not Available [facility] [address] [place] [address], [address], 05/02/2023 11:10:15 05/02/19 24 05/02/2023 COMPL ETE BLOOD COUNT % neutrophils 58.8 % 42.0-7 8.0 normal Not Available [facility] [address] [place] [address], [address], 05/02/2023 11:10:15 05/02/19 24 05/02/2023 COMPL ETE BLOOD COUNT % lymphocytes 28.4 % 11.0-4 7.0 normal Not Available [facility] [address] [place] [address], [address], 05/02/2023 11:10:15 05/02/19 24 05/02/2023 COMPL ETE BLOOD COUNT % monocytes 8.8 % 0.0-11 .0 normal Not Available [facility] [address] [place] [address], [address], 05/02/2023 11:10:15 05/02/19 24 05/02/2023 COMPL ETE BLOOD COUNT % eosinophils 2.8 % 0.0-7. 0 normal Not Available [facility] [address] [place] [address], [address], 05/02/2023 11:10:15 05/02/19 24 05/02/2023 COMPL ETE BLOOD COUNT % basophils 1.2 % 0.0-3. 0 normal Not Available [facility] [address] [place] [address], [address], 05/02/2023 11:10:15 05/02/19 24 05/02/2023 COMPL ETE BLOOD COUNT nucleated red cells 0.2 % 0.0-0. 9 normal Not Available [facility] [address] [place] [address], [address], 05/02/2023 11:10:15 05/02/19 24 05/02/2023 COMPL ETE BLOOD COUNT nucleated RBCs, absolute 0.01 10*3/ uL not estab. normal Not Available [facility] [address] [place] [address], [address], 05/02/2023 11:10:15 05/02/19 24 05/02/2023 COMP. METAB OLIC PANEL glucose 94 mg/dL 74-100 normal Not Available [facility] [address] [place] [address], [address], 05/02/2023 11:43:15 05/02/19 24 05/02/2023 COMP. METAB OLIC PANEL blood urea nitrogen 13 mg/dL 6-20 normal Not Available [facility] [address] [place] [address], [address], 05/02/2023 11:43:15 05/02/19 24 05/02/2023 COMP. METAB OLIC PANEL creatinine 0.55 mg/dL 0.50-0 .95 normal Not Available [facility] [address] [place] [address], [address], 05/02/2023 11:43:15 05/02/19 24 05/02/2023 COMP. METAB OLIC PANEL BUN/creatini ne ratio 24 (calc ) 10-20 high Not Available [facility] [address] [place] [address], [address], 05/02/2023 11:43:15 05/02/19 24 05/02/2023 COMP. METAB OLIC PANEL sodium 142 mmol/ L 136-14 5 normal Not Available [facility] [address] [place] [address], [address], 05/02/2023 11:43:15 05/02/19 24 05/02/2023 COMP. METAB OLIC PANEL potassium 4.3 mmol/ L 3.4-5. 0 normal Not Available [facility] [address] [place] [address], [address], 05/02/2023 11:43:15 05/02/19 24 05/02/2023 COMP. METAB OLIC PANEL chloride 104 mmol/ L 98-107 normal Not Available [facility] [address] [place] [address], [address], 05/02/2023 11:43:15 05/02/19 24 05/02/2023 COMP. METAB OLIC PANEL carbon dioxide 29 mmol/ L 22-31 normal Not Available [facility] [address] [place] [address], [address], 05/02/2023 11:43:15 05/02/19 24 05/02/2023 COMP. METAB OLIC PANEL anion gap 9 (calc ) 7-25 normal Not Available [facility] [address] [place] [address], [address], 05/02/2023 11:43:15 05/02/19 24 05/02/2023 COMP. METAB OLIC PANEL calcium 10.6 mg/dL 8.6-10 .2 high Not Available [facility] [address] [place] [address], [address], 05/02/2023 11:43:15 05/02/19 24 05/02/2023 COMP. METAB OLIC PANEL total protein 7.5 g/dL 6.4-8. 3 normal Not Available [facility] [address] [place] [address], [address], 05/02/2023 11:43:15 05/02/19 24 05/02/2023 COMP. METAB OLIC PANEL albumin 4.5 g/dL 3.5-5. 2 normal Not Available [facility] [address] [place] [address], [address], 05/02/2023 11:43:15 05/02/19 24 05/02/2023 COMP. METAB OLIC PANEL globulin 3.0 1.5-4. 5 normal Not Available [facility] [address] [place] [address], [address], 05/02/2023 11:43:15 05/02/19 24 05/02/2023 COMP. METAB OLIC PANEL albumin/glob ulin ratio 1.5 (calc ) 1.1-2. 5 normal Not Available [facility] [address] [place] [address], [address], 05/02/2023 11:43:15 05/02/19 24 05/02/2023 COMP. METAB OLIC PANEL bilirubin, total 0.8 mg/dL 0.1-1. 2 normal Not Available [facility] [address] [place] [address], [address], 05/02/2023 11:43:15 05/02/19 24 05/02/2023 COMP. METAB OLIC PANEL alkaline phosphatase 87 U/L 30-121 normal Not Available [facility] [address] [place] [address], [address], 05/02/2023 11:43:15 05/02/19 24 05/02/2023 COMP. METAB OLIC PANEL AST 39 U/L 0-32 high Not Available [facility] [address] [place] [address], [address], 05/02/2023 11:43:15 05/02/19 24 05/02/2023 COMP. METAB OLIC PANEL ALT 38 U/L 0-33 high Not Available [facility] [address] [place], [address], 05/02/2023 11:43:15 05/02/19 24 05/02/2023 COMP. METAB OLIC PANEL GFR 96 >= 60 normal NOT E New calcu latio n for GFR (CKD- EPI 2020) is formu lated witho ut race adjus tment facto rs at the recom menda tion of the [facility] at[facility] and [facility] of Nephr ology . This calcu latio n has not been valid ated in pregn ant women . For pedia tric patie nts refer to https :[email or web address] garcia.delia sam/len rojo s/LIVIAO QI/gf r_cal culat orPed Not Available [facility] [address] [place] [address], [address], 05/02/2023 11:43:15 05/02/19 24 05/02/2023 LIPID PROFI LE HDL cholesterol 66 mg/dL 50-242 normal Not Available [facility] [address] [place] [address], [address], 05/02/2023 11:43:17 05/02/19 24 05/02/2023 LIPID PROFI LE triglyceride s 135 mg/dL 0-149 normal TRIGL YCERI DE RANGE S BROOKE L: < 150 BORDE RLINE HIGH: 150 - 199 HIGH: 200 - 499 VERY HIGH: > OR = 500 Not Available [facility] [address] [place], [address], 05/02/2023 11:43:17 05/02/19 24 05/02/2023 LIPID PROFI LE cholesterol 154 mg/dL 0-199 normal PILO STERO L (TOTA L) RANGE S LEONA ABLE: < 200 BORDE RLINE : 200 - 239 HIGHE R RISK: > 239 Not Available [facility] [address] [place], [address], 05/02/2023 11:43:17 05/02/19 24 05/02/2023 LIPID PROFI LE LDL cholesterol 61 mg/dL _(mildred c) 0-99 normal LDL PILO STERO L RANGE S OPTIM AL: < 100 NEAR/ ABOVE OPTIM AL: 100 - 129 BORDE RLINE HIGH: 130 - 159 HIGH: 160 - 189 VERY HIGH: > OR = 190 Not Available [facility] [address] [place] [address], [place], [address], 05/02/2023 11:43:17 05/02/19 24 05/02/2023 PTH, INTAC [...] Non-P kong yroid Hyper calce salima Low Brokoe l ===== ===== ===== ===== ===== ===== ===== ===== ===== ===== ===== ==== Not Available [facility] [address] [place] [address], [address], 05/02/2023 11:56:57 05/02/19 24 05/02/2023 PTH, INTAC T WITH CA calcium 10.7 mg/dL 8.6-10 .2 high Not Available [facility] [address] [place] [address], [address], 05/02/2023 11:56:57 05/02/19 24 05/03/2023 URINE DRUG SCREE N amphetamines NEGATI VE NG/mL <500 normal Not Available [facility] [address] [place] [address], [address], 05/03/2023 09:53:11 05/02/19 24 05/03/2023 URINE DRUG SCREE N barbiturates NEGATI VE NG/mL <300 normal Not Available [facility] [address] [place] [address], [address], 05/03/2023 09:53:11 05/02/19 24 05/03/2023 URINE DRUG SCREE N benzodiazepi don NEGATI VE NG/mL <100 normal Not Available [facility] [address] [place] [address], [address], 05/03/2023 09:53:11 05/02/19 24 05/03/2023 URINE DRUG SCREE N marijuana metabolite NEGATI VE NG/mL <20 normal Not Available [facility] [address] [place] [address], [address], 05/03/2023 09:53:11 05/02/19 24 05/03/2023 URINE DRUG SCREE N cocaine metabolite NEGATI VE NG/mL <150 normal Not Available [facility] [address] [place] [address], [address], 05/03/2023 09:53:11 05/02/19 24 05/03/2023 URINE DRUG SCREE N methadone metabolite NEGATI VE NG/mL <100 normal Not Available [facility] [address] [place] [address], [address], 05/03/2023 09:53:11 05/02/19 24 05/03/2023 URINE DRUG SCREE N opiates NEGATI VE NG/mL <100 normal Not Available [facility] [address] [place] [address], [address], 05/03/2023 09:53:11 05/02/19 24 05/03/2023 URINE DRUG SCREE N oxycodone NEGATI VE NG/mL <100 normal Not Available [facility] [address] [place] [address], [address], 05/03/2023 09:53:11 05/02/19 24 05/03/2023 URINE DRUG SCREE N phencyclidin e NEGATI VE NG/mL <25 normal Not Available [facility] [address] [place] [address], [address], 05/03/2023 09:53:11 05/02/19 24 05/03/2023 URINE DRUG SCREE N creatinine 74.9 mg/dL > or = 20.0 normal Not Available [facility] [address] [place], [address], 05/03/2023 09:53:11 05/02/19 24 05/03/2023 URINE DRUG SCREE N specific gravity 1.019 > or = 1.003 normal Not Available [facility] [address] [place] [address], [address], 05/03/2023 09:53:11 05/02/19 24 05/03/2023 URINE DRUG SCREE N pH 6.2 4.5-9. 0 normal Not Available [facility] [address] [place] [address], [address], 05/03/2023 09:53:11 05/02/19 24 05/03/2023 URINE DRUG SCREE N oxidant NEGATI VE mcg/m L <200 normal Not Available [facility] [address] [place] [address], [address], 05/03/2023 09:53:11 05/02/19 24 05/03/2023 URINE DRUG [...] M-F, 8am to 10pm EST Not Available [facility] [place], [address], 05/03/2023 09:53:11 11/09/19 24 11/09/2023 COMPL ETE BLOOD COUNT white blood cells 4.0 10*3/ uL 3.8-10 .8 normal Not Available [facility] [address] [place], [address], 11/09/2023 10:58:07 11/09/19 24 11/09/2023 COMPL ETE BLOOD COUNT red blood cells 4.76 10*6/ uL 3.80-5 .20 normal Not Available [facility] [address] [place] [address], [address], 11/09/2023 10:58:07 11/09/19 24 11/09/2023 COMPL ETE BLOOD COUNT hemoglobin 14.6 g/dL 12.0-1 6.0 normal Not Available [facility] [address] [place] [address], [address], 11/09/2023 10:58:07 11/09/19 24 11/09/2023 COMPL ETE BLOOD COUNT hematocrit 41.3 % 35.0-4 7.0 normal Not Available [facility] [address] [place] [address], [address], 11/09/2023 10:58:07 11/09/19 24 11/09/2023 COMPL ETE BLOOD COUNT MCV 87 fL 80-100 normal Not Available [facility] [address] [place] [address], [address], 11/09/2023 10:58:07 11/09/19 24 11/09/2023 COMPL ETE BLOOD COUNT MCH 31 pg 26-35 normal Not Available [facility] [address] [place] [address], [address], 11/09/2023 10:58:07 11/09/19 24 11/09/2023 COMPL ETE BLOOD COUNT MCHC 35 g/dL 32-36 normal Not Available [facility] [address] [place] [address], [address], 11/09/2023 10:58:07 11/09/19 24 11/09/2023 COMPL ETE BLOOD COUNT RDW 13.8 % 11.0-1 5.0 normal Not Available [facility] [address] [place] [address], [address], 11/09/2023 10:58:07 11/09/19 24 11/09/2023 COMPL ETE BLOOD COUNT MPV 7.8 fL 6.2-10 .5 normal Not Available [facility] [address] [place] [address], [address], 11/09/2023 10:58:07 11/09/19 24 11/09/2023 COMPL ETE BLOOD COUNT platelet count 186 10*3/ uL 150-40 0 normal Not Available [facility] [address] [place] [address], [address], 11/09/2023 10:58:07 11/09/19 24 11/09/2023 COMPL ETE BLOOD COUNT neutrophil,a bsolute 2.3 10*3/ uL 1.6-8. 4 normal Not Available [facility] [address] [place] [address], [address], 11/09/2023 10:58:07 11/09/19 24 11/09/2023 COMPL ETE BLOOD COUNT lymphocyte,a bsolute 1.3 10*3/ uL 0.4-5. 1 normal Not Available [facility] [address] [place] [address], [address], 11/09/2023 10:58:07 11/09/19 24 11/09/2023 COMPL ETE BLOOD COUNT monocyte,abs olute 0.2 10*3/ uL 0.0-1. 2 normal Not Available [facility] [address] [place] [address], [address], 11/09/2023 10:58:07 11/09/19 24 11/09/2023 COMPL ETE BLOOD COUNT eosinophil,a bsolute 0.1 10*3/ uL 0.0-0. 8 normal Not Available [facility] [address] [place] [address], [address], 11/09/2023 10:58:07 11/09/19 24 11/09/2023 COMPL ETE BLOOD COUNT basophil,abs olute 0.1 10*3/ uL 0.0-0. 3 normal Not Available [facility] [address] [place] [address], [address], 11/09/2023 10:58:07 11/09/19 24 11/09/2023 COMPL ETE BLOOD COUNT % neutrophils 59.2 % 42.0-7 8.0 normal Not Available [facility] [address] [place] [address], [address], 11/09/2023 10:58:07 11/09/19 24 11/09/2023 COMPL ETE BLOOD COUNT % lymphocytes 32.1 % 11.0-4 7.0 normal Not Available [facility] [address] [place] [address], [address], 11/09/2023 10:58:07 11/09/19 24 11/09/2023 COMPL ETE BLOOD COUNT % monocytes 5.2 % 0.0-11 .0 normal Not Available [facility] [address] [place] [address], [address], 11/09/2023 10:58:07 11/09/19 24 11/09/2023 COMPL ETE BLOOD COUNT % eosinophils 2.2 % 0.0-7. 0 normal Not Available [facility] [address] [place] [address], [address], 11/09/2023 10:58:07 11/09/19 24 11/09/2023 COMPL ETE BLOOD COUNT % basophils 1.3 % 0.0-3. 0 normal Not Available [facility] [address] [place] [address], [address], 11/09/2023 10:58:07 11/09/19 24 11/09/2023 COMPL ETE BLOOD COUNT nucleated red cells 0.1 % 0.0-0. 9 normal Not Available [facility] [address] [place] [address], [address], 11/09/2023 10:58:07 11/09/19 24 11/09/2023 COMPL ETE BLOOD COUNT nucleated RBCs, absolute 0.00 10*3/ uL not estab. normal Not Available [facility] [address] [place] [address], [address], 11/09/2023 10:58:07 11/09/19 24 11/09/2023 COMP. METAB OLIC PANEL glucose 126 mg/dL 74-100 high Not Available [facility] [address] [place] [address], [address], 11/09/2023 11:25:19 11/09/19 24 11/09/2023 COMP. METAB OLIC PANEL blood urea nitrogen 14 mg/dL 6-20 normal Not Available [facility] [address] [place] [address], [address], 11/09/2023 11:25:19 11/09/19 24 11/09/2023 COMP. METAB OLIC PANEL creatinine 0.60 mg/dL 0.50-0 .95 normal Not Available [facility] [address] [place] [address], [address], 11/09/2023 11:25:19 11/09/19 24 11/09/2023 COMP. METAB OLIC PANEL BUN/creatini ne ratio 23 (calc ) 10-20 high Not Available [facility] [address] [place] [address], [address], 11/09/2023 11:25:19 11/09/19 24 11/09/2023 COMP. METAB OLIC PANEL sodium 143 mmol/ L 136-14 5 normal Not Available [facility] [address] [place] [address], [address], 11/09/2023 11:25:19 11/09/19 24 11/09/2023 COMP. METAB OLIC PANEL potassium 4.1 mmol/ L 3.4-5. 0 normal Not Available [facility] [address] [place] [address], [address], 11/09/2023 11:25:19 11/09/19 24 11/09/2023 COMP. METAB OLIC PANEL chloride 105 mmol/ L 98-107 normal Not Available [facility] [address] [place] [address], [address], 11/09/2023 11:25:19 11/09/19 24 11/09/2023 COMP. METAB OLIC PANEL carbon dioxide 29 mmol/ L 22-31 normal Not Available [facility] [address] [place] [address], [address], 11/09/2023 11:25:19 11/09/19 24 11/09/2023 COMP. METAB OLIC PANEL anion gap 9 (calc ) 7-25 normal Not Available [facility] [address] [place] [address], [address], 11/09/2023 11:25:19 11/09/19 24 11/09/2023 COMP. METAB OLIC PANEL calcium 10.6 mg/dL 8.6-10 .2 high Not Available [facility] [address] [place] [address], [address], 11/09/2023 11:25:19 11/09/19 24 11/09/2023 COMP. METAB OLIC PANEL total protein 7.4 g/dL 6.4-8. 3 normal Not Available [facility] [address] [place] [address], [address], 11/09/2023 11:25:19 11/09/19 24 11/09/2023 COMP. METAB OLIC PANEL albumin 4.5 g/dL 3.5-5. 2 normal Not Available [facility] [address] [place] [address], [address], 11/09/2023 11:25:19 11/09/19 24 11/09/2023 COMP. METAB OLIC PANEL globulin 2.9 1.5-4. 5 normal Not Available [facility] [address] [place] [address], [address], 11/09/2023 11:25:19 11/09/19 24 11/09/2023 COMP. METAB OLIC PANEL albumin/glob ulin ratio 1.6 (calc ) 1.1-2. 5 normal Not Available [facility] [address] [place] [address], [address], 11/09/2023 11:25:19 11/09/19 24 11/09/2023 COMP. METAB OLIC PANEL bilirubin, total 0.8 mg/dL 0.1-1. 2 normal Not Available [facility] [address] [place] [address], [address], 11/09/2023 11:25:19 11/09/19 24 11/09/2023 COMP. METAB OLIC PANEL alkaline phosphatase 75 U/L 30-121 normal Not Available [facility] [address] [place] [address], [address], 11/09/2023 11:25:19 11/09/19 24 11/09/2023 COMP. METAB OLIC PANEL AST 29 U/L 0-32 normal Not Available [facility] [address] [place] [address], [address], 11/09/2023 11:25:19 11/09/19 24 11/09/2023 COMP. METAB OLIC PANEL ALT 33 U/L 0-33 normal Not Available [facility] [address] [place] [address], [address], 11/09/2023 11:25:19 11/09/19 24 11/09/2023 COMP. METAB OLIC PANEL GFR 94 >= 60 normal NOT E New calcu latio n for GFR (CKD- EPI 2020) is formu lated witho ut race adjus tment facto rs at the [facility] menda tion of the [facility] [place] [facility] [place] and [facility] of Nephr ology . This calcu latio n has not been valid ated in pregn ant women . For pedia tric patie nts refer to https :[email or web address] [email or web address] [email or web address] rg/pr ofess ional s/KDO QI/gf r_cal culat orPed Not Available [facility] [address] [place] [address], [address], 11/09/2023 11:25:19 11/09/19 24 11/09/2023 LIPID PROFI LE HDL cholesterol 58 mg/dL 50-242 normal Not Available [facility] [address] [place] [address], [address], 11/09/2023 11:25:21 11/09/19 24 11/09/2023 LIPID PROFI LE triglyceride s 193 mg/dL 0-149 high TRIGL YCERI DE RANGE S BROOKE L: < 150 BORDE RLINE HIGH: 150 - 199 HIGH: 200 - 499 VERY HIGH: > OR = 500 Not Available [facility] [address] [place] [address], [address], 11/09/2023 11:25:21 11/09/19 24 11/09/2023 LIPID PROFI LE cholesterol 140 mg/dL 0-199 normal PILO STERO L (TOTA L) RANGE S LEONA ABLE: < 200 BORDE RLINE : 200 - 239 HIGHE R RISK: > 239 Not Available [facility] [address] [place] [address], [address], 11/09/2023 11:25:21 11/09/19 24 11/09/2023 LIPID PROFI LE LDL cholesterol 43 mg/dL _(mildred c) 0-99 normal LDL PILO STERO L RANGE S OPTIM AL: < 100 NEAR/ ABOVE OPTIM AL: 100 - 129 BORDE RLINE HIGH: 130 - 159 HIGH: 160 - 189 VERY HIGH: > OR = 190 Not Available [facility] [address] [place], [address], 11/09/2023 11:25:21 11/09/19 24 11/09/2023 PTH, INTAC [...] ===== ===== ===== ===== ==== Not Available [facility] [address] [place] [address], [address], 11/09/2023 11:42:58 11/09/19 24 11/09/2023 PTH, INTAC T WITH CA calcium 11.0 mg/dL 8.6-10 .2 high Not Available [facility] [address] [place] [address], [address], 11/09/2023 11:42:58 11/09/19 24 11/09/2023 VITAM IN D 25-OH vitamin D 25-oh, total 26 NG/mL >=30 NG/mL abnormal Not Available [facility] [address] [place] [address], [address], 11/09/2023 11:43:00 11/09/19 24 11/10/2023 URINE DRUG SCREE N amphetamines NEGATI VE NG/mL <500 normal Not Available [facility] [address] [place] [address], [address], 11/10/2023 06:49:00 11/09/19 24 11/10/2023 URINE DRUG SCREE N barbiturates NEGATI VE NG/mL <300 normal Not Available [facility] [address] [place] [address], [address], 11/10/2023 06:49:00 11/09/19 24 11/10/2023 URINE DRUG SCREE N benzodiazepi don NEGATI VE NG/mL <100 normal Not Available [facility] [address] [place] [address], [address], 11/10/2023 06:49:00 11/09/19 24 11/10/2023 URINE DRUG SCREE N marijuana metabolite NEGATI VE NG/mL <20 normal Not Available [facility] [address] [place] [address], [address], 11/10/2023 06:49:00 11/09/19 24 11/10/2023 URINE DRUG SCREE N cocaine metabolite NEGATI VE NG/mL <150 normal Not Available [facility] [address] [place] [address], [id number], 11/10/2023 06:49:00 11/09/19 24 11/10/2023 URINE DRUG SCREE N methadone metabolite NEGATI VE NG/mL <100 normal Not Available [facility] [address] [place] [address], [phone], 11/10/2023 06:49:00 11/09/19 24 11/10/2023 URINE DRUG SCREE N opiates NEGATI VE NG/mL <100 normal Not Available [facility] [address] [place] [address], [phone], 11/10/2023 06:49:00 11/09/19 24 11/10/2023 URINE DRUG SCREE N oxycodone NEGATI VE NG/mL <100 normal Not Available [facility] [address] [place] [address], [phone], 11/10/2023 06:49:00 11/09/19 24 11/10/2023 URINE DRUG SCREE N phencyclidin e NEGATI VE NG/mL <25 normal Not Available [facility] [address] [place] [address], [address], 11/10/2023 06:49:00 11/09/19 24 11/10/2023 URINE DRUG SCREE N creatinine 92.7 mg/dL > or = 20.0 normal Not Available [facility] [address] [place] [address], [address], 11/10/2023 06:49:00 11/09/19 24 11/10/2023 URINE DRUG SCREE N specific gravity 1.019 > or = 1.003 normal Not Available [facility] [address] [place], [address], 11/10/2023 06:49:00 11/09/19 24 11/10/2023 URINE DRUG SCREE N pH 6.5 4.5-9. 0 normal Not Available [facility] [address] [place], [address], 11/10/2023 06:49:00 11/09/19 24 11/10/2023 URINE DRUG SCREE N oxidant NEGATI VE mcg/m L <200 normal Not Available [facility] [address] [place], [address], 11/10/2023 06:49:00 11/09/19 24 11/10/2023 URINE DRUG [...] M-F, 8am to 10pm EST Not Available [facility] [address] [place], [address], 11/10/2023 06:49:00 05/09/19 24 05/09/2023 XR, shoul rebel, 2 or more view [place] [facility] [address] [place] [address] Albert garcia Name: IRA CONTRERAS Delvin Albert garcia : [address] [...] Tomer murillo MD on 024 11:03 AM [facility] [place] [address] , [place], [address], 05/10/2023 22:32:49 05/19/19 24 05/19/2023 rf RT shoul rebel stero id injec tion [facility] [address] [place] [address] Patien t Name: IRA Hargrove Patien t [...] 50 mL vial of Omnipa que 300 ([facility] [address]19- 1413-6 1) was inject ed into the patien t. The remain ing 48 mL was wasted and discar ded. Dexame thason e ([facility] 25018- 422-00 ) IMPRES CAMILA: 1. The patien t is status post right should er arthro gram with dexame thason e and bupiva luisito inject ion withou t compli cation . Interp reted By: Tomer murillo MD Electr onical ly Signed By: Tomer murillo MD on 024 2:38 PM [facility] [address] [place], [address], 05/20/2023 06:30:38 Result Notes Documentation Provider Name and Address Organization Details Recorded Time Xr, Shoulder, 2 Or More View : [facility] [place] [address] [place] [address] Patient Name: IRA CARDOSO Patient : 1950 Patient Ordering Provider: QUINTON ORTIZ EXAM DATE: 05/09/2023 EXAM: XR RT SHOULDER COMPLETE RADIOGRAPHIC VIEWS: 4 COMPARISON: None. HISTORY: Right shoulder pain. FINDINGS: The bones of the shoulder are normal in alignment. There is no evidence of fracture. There is moderate to severe degenerative changes at the glenohumeral joint. There are dcyg-sf-mvycsplq degenerative changes at the acromioclavicular joint and mild spurring along the greater tuberosity of the humerus. The acromioclavicular and coracoclavicular spacing is normal. The visualized right ribs and right lung appears normal. IMPRESSION: 1. There are moderate to severe degenerative changes in the right glenohumeral joint. Interpreted By: Fritz Orona MD TON ORTIZ MD [address] [place] [address], [address], [facility] 05/10/2023 22:32:49 Problems Name Problem SNOMED Code Status Onset Date Resolution Date Notes Provider Name and Address Organization Details Recorded Time Essential hypertension 35679983 Active 2021 ENZO WRIGHT MD [address] [place] [address], [address], [facility] 2 10:44:13 Hyperlipidemia 04151139 Active 2021 ENZO WRIGHT MD [address] [place] [address], [address], [facility] 2 10:44:19 Chronic pain syndrome 848268937 Active 2021 ENZO WRIGHT MD [address] [place] [address], [address], [facility] 2 10:45:29 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 ENZO WRIGHT MD [address] [place] [address], [address], [facility] 2 15:13:39 Hyperparathyro idism 06496389 Active 2022 ENZO WRIGHT MD [address] [place] [address], [address], [facility] 3 07:28:03 Major depression in remission 01336502 Active 2022 ENZO WRIGHT MD [address] [place] [address], [facility] 3 08:21:58 Problem Notes Documentation Provider Name and Address Organization Details Recorded Time Orthopedic Surgeon Consult Note : [facility] [address] [facility] [id number], Diane S (id #[id number], : 1950) [facility] [address] [place] [address] Encounter Summary - Progress Note Date Printed: [...] received this fax in error, please visit [email or web address] to notify the sender and confirm that the information will be destroyed. If you do not have internet access, please call to notify the sender and confirm that the information will be destroyed. Thank you for your attention and cooperation. 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 MRI: ____PT: noneNSAIDS: Patrica peacock (helps a little)INJECTION: none Review of Systems Patient reports no fever. She reports no vision change. She reports no chest pain. She reports no shortness of breath. She reports normal appetite, no nausea, and no vomiting. [id number] 11:07 Ht: 5 ft 4 in Wt: [...] Test:Speeds Negative.Subscapularis Test:Belly press ____Lift Off ____.Labrum Tests:[place]'s ____DLS ____.Scapular dyskinesis ____Scapular assist ____. Dermatologic: NormalMotor:abnormalNeurolo gic:decreased sensation of ulnar distributionVascular: Radial Normal ; Brachial ____. Procedure DocumentationNone recorded Assessment and Plan1. Osteoarthritis of right glenohumeral jwotvO33.011: Primary osteoarthritis, right shoulder Discussion NotesReviewed and [...] for 90 days.04/26/22 prescribed LESLYE CANADA APRN rspnuseognvf70/12/21 entered Leslye Scott simvastatin 40 mg tabletTAKE [...] 05/04/2023) Vaccine Type Date Amt. Route Site [facility] Lot # Mfr. Exp. Date VIS VIS Given Director Speech Language COVID-19 COVID-19, mRNA, LNP-S, PF, 30 mcg/0.3 mL dose (DocRun) 05/22/20 0.3 mL Intramuscular [id number] [employer] 09/23/20 COVID-19, mRNA, LNP-S, PF, 30 mcg/0.3 mL dose (DocRun) 04/28/20 0.3 mL Intramuscular [id number] [employer] 08/23/20 Influenza influenza, high-dose, quadrivalent 03/24/23 0.7 mL Intramuscular [id number] San[employer]i [employer]aste[employer] 09/24/23 influenza, high-dose, quadrivalent 02/02/22 0.7 mL Intramuscular Deltoid, Left [id number] San[employer]i Paste[employer] 09/23/22 Inactivated Influenza 10/30/2020 02/02/22 Roxi Sorenson influenza, high dose seasonal 01/21/20 0.7 mL Intramuscular [id number] [employer] Paste[employer] 09/23/20 influenza, high dose seasonal 02/09/19 0.5 mL Intramuscular [id number] [employer] 09/24/19 influenza, high dose seasonal 03/01/18 0.5 mL Intramuscular [id number] [employer] 09/02/18 Pneumococcal Pneumococcal conjugate PCV20, polysaccharide SAM997 conjugate, adjuvant, PF 02/02/22 0.5 mL Intramuscular Deltoid, Right 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/25/22 Pneumococcal Conjugate 04/30/21 02/02/22 Roxi Sorenson pneumococcal polysaccharide PPV23 01/09/20 pneumococcal conjugate PCV 13 01/08/19 Zoster zoster recombinant 11/23/21 0.5 mL Intramuscular [id number] [employer] 07/30/22 Electronically Signed by: QUINTON ORTIZ MD ENZO WRIGHT MD [address] [place], [address], [facility] 05/10/2023 07:30:33 Orthopedics Note : [facility] [address] [facility] [address]JNENJBP, Diane S (id #[id number], : 1950) [facility] [address] [place] [address] Encounter Summary - Progress Note Date Printed: [...] received this fax in error, please visit [email or web address] to notify the sender and confirm that the information will be destroyed. If you do not have internet access, please call to notify the sender and confirm that the information will be destroyed. Thank you for your attention and cooperation. 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 [id number] 11:07 Ht: 5 ft 4 in Wt: [...] Test:Speeds Negative.Subscapularis Test:Belly press ____Lift Off ____.Labrum Tests:[place]'s ____DLS ____.Scapular dyskinesis ____Scapular assist ____. Dermatologic: NormalMotor:abnormalNeurolo gic:decreased sensation of ulnar distributionVascular: Radial Normal ; Brachial ____. Procedure DocumentationNone recorded Assessment and Plan1. Osteoarthritis of right glenohumeral rvmwqG52.011: Primary osteoarthritis, right shoulder Discussion NotesReviewed and [...] as directed for 90 days.04/26/22 prescribed LESLYE ACNADA APRN dhyrytmnvrjq60/12/21 entered Leslye Scott simvastatin 40 mg tabletTAKE [...] 05/04/2023) Vaccine Type Date Amt. Route Site [facility] Lot # Mfr. Exp. Date VIS VIS Given Director Speech Language COVID-19 COVID-19, mRNA, LNP-S, PF, 30 mcg/0.3 mL dose (DocRun) 05/22/20 0.3 mL Intramuscular [id number] [employer] 09/23/20 COVID-19, mRNA, LNP-S, PF, 30 mcg/0.3 mL dose (DocRun) 04/28/20 0.3 mL Intramuscular [id number] [employer] 08/23/20 Influenza influenza, high-dose, quadrivalent 03/24/23 0.7 mL Intramuscular [id number] Sanofi Paste[employer] 09/24/23 influenza, high-dose, quadrivalent 02/02/22 0.7 mL Intramuscular Deltoid, Left [id number] Sanofi Paste[employer] 09/23/22 Inactivated Influenza 10/30/2020 02/02/22 Roxi Sorenson influenza, high dose seasonal 01/21/20 0.7 mL Intramuscular [id number] Sanofi Pasteur 09/23/20 influenza, high dose seasonal 02/09/19 0.5 mL Intramuscular [id number] Sanofi Paste[employer] 09/24/19 influenza, high dose seasonal 03/01/18 0.5 mL Intramuscular [id number] [employer]i Paste[employer] 09/02/18 Pneumococcal Pneumococcal conjugate PCV20, polysaccharide [id number] conjugate, adjuvant, PF 02/02/22 0.5 mL Intramuscular Deltoid, Right 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 11/25/22 Pneumococcal Conjugate 04/30/21 02/02/22 Roxi Sorenson pneumococcal polysaccharide PPV23 01/09/20 pneumococcal conjugate PCV 13 01/08/19 Zoster zoster recombinant 11/23/21 0.5 mL Intramuscular [id number] [employer] 07/30/22 Electronically Signed by: QUINTON ORTIZ MD ROBERT BOATENG MD [address] [place], [address], [facility] 05/09/2023 13:27:59 Procedures Surgical History Date Name Laterality Status Provider Name and Address Organization Details Recorded Time 023 Fine Needle Aspiration; Ultrasound guidance completed ROBERT BOATENG MD [address] [place], [address], [facility] 06/21/2022 11:22:42 023 DXA Osteoporosis completed ROBERT BOATENG MD [address] [place], [address], [facility] 06/21/2022 12:19:14 023 Post Void Residual; Ultrasound completed Mercy Puri [facility] 04/26/2022 14:56:07 022 Post Void Residual; Ultrasound completed Roxi Mtz [facility] 05/25/2021 09:36:19 021 Pap Smear collection completed MARVEL WRIGHT MD [address] [place], [address], [facility] 01/05/2021 15:52:59 021 Date of Last Pap Smear completed Nandini Pulido [facility] 01/13/2021 08:42:38 019 Total Hysterectomy completed ENZO WRIGHT MD [address] [place], [address], [facility] 07/28/2021 10:37:35 019 Cystoscopy - female completed MALA WEBB MD [address] [place], [address] 09/12/2018 14:18:46 019 Post Void Residual; Ultrasound completed Rebekah Edison [facility] 08/28/2018 13:34:15 017 Post Void Residual; Ultrasound completed [facility] 01/30/2017 14:44:49 008 Appendectomy completed [facility] 01/30/2017 14:44:02 005 Cholecystectomy completed [facility] 01/30/2017 14:44:13 [facility] 15:15:53 total replacement of hip [facility] 15:16:23 Imaging Results None recorded. Procedure Notes None recorded. Medical Equipment None Reported. Allergies Allergen ID Allergen Name Allergen Category Reaction Reaction Severity Criticality Documentation Date Start Date Code Code System Note Provider Name and Address Organization Details Recorded Time 156206 Substance with sulfonami de structure and antibacte rial mechanism of action (substanc e) medicatio n Not available Not available Not available 01/05/2021 81790 8003 SNOMED [facility] 15:09:59 Medications Name Sig Start Date Stop Date Status Note LastModified by Organization Details LastModified Time losartan 50 mg tablet Take 1 tablet by mouth once daily 05/14/ 2025 active Not Available Not Available Not Avai [...] oral route as directed for 7 days. 08/03 completed Not Available Not Available Not Available [...] 120 mm[Hg] 77 mm[Hg] ENZO WRIGHT MD [address] [place], [address] [place] [address] 09:31:35 Date Recorded Body mass index (BMI) Body weight Provider Name and Address Organization Details Last Updated DateTime 05/04/2023 32.8 kg/m2 88357.54 g Roxi Sorenson [facility] 05/04/2023 09:29:00 Date Recorded Body height Body mass index (BMI) Body weight Provider Name and Address Organization Details Last Updated DateTime 05/09/2023 162.56 cm 32.8 kg/m2 77708.[address] [facility] 05/09/2023 11:07:12 Date Recorded Respiratory rate Heart rate Systolic blood pressure Diastolic blood pressure Provider Name and Address Organization Details Last Updated DateTime 08/03/2022 12 /min 76 /min 122 mm[Hg] 72 mm[Hg] ENZO WRIGHT MD [address] [place], [address] [facility] 08/03/2022 10:25:54 Date Recorded Body height Body mass index (BMI) Body weight Provider Name and Address Organization Details Last Updated DateTime 08/03/2022 162.56 cm 33.6 kg/m2 79189.1 g Adelaida Joanne [facility] 08/03/2022 10:17:00 Date Recorded Respiratory rate Heart rate Systolic blood pressure Diastolic blood pressure Provider Name and Address Organization Details Last Updated DateTime 11/09/2023 12 /min 68 /min 122 mm[Hg] 78 mm[Hg] ENZO WRIGHT MD [address] [place], [address] [facility] 11/09/2023 11:02:09 Date Recorded Body height Body mass index (BMI) Body weight Provider Name and Address Organization Details Last Updated DateTime 11/09/2023 162.56 cm 32.3 kg/m2 92935.37 g Roxi Sorenson [facility] 11/09/2023 10:51:35 Date Recorded Body height Respiratory rate Heart rate Systolic blood pressure Diastolic blood pressure Provider Name and Address Organization Details Last Updated DateTime 11/10/2022 162.56 cm 12 /min 80 /min 118 mm[Hg] 78 mm[Hg] ENZO WRIGHT MD [address] [place] [address], [address] [place] [address] 3 11:27:53 Date Recorded Body mass index (BMI) Body weight Provider Name and Address Organization Details Last Updated DateTime 11/10/2022 32.3 kg/m2 04157.47 g Roxi Sorenson [facility] 11/10/2022 11:22:33 Social History Question Answer Notes LastModified by Organizat ion Details LastModified Time Tobacco Smoking Status [facility]oker [facility] 01/[facility]/2017 14:43:53 How Much Tobacco Do You Chew? None [email or web address] Information not available 12/05/2019 What Was The Date Of Your Most Recent Tobacco Screening? 11/09/2023 Information not available 11/09/2023 How Much Tobacco Do You Smoke? No [email or web address] Information not available 12/05/2019 Has Tobacco Cessation Counseling Been Provided? No Information not available 04/01/2022 How Many Years Have You Smoked Tobacco? 0 [email or web address] Information not available 12/05/2019 Sex: Female Functional [...] used smokeless tobacco? Never used smokeless tobacco [email or web address] Information not available 12/05/2019 Are you currently employed? Yes Information not available 07/28/2021 What is your occupation? [employer] rojas Information not available 07/28/2021 Do you or have you ever used e-cigarettes or vape? Never used electronic cigarettes [email or web address] Information not available 12/05/2019 Mental Status None [...] Cholesterol Y Thyroid Problems Y Heart Attack ([place]) N Diabetes N Sleep Apnea N Hypertension [...] Details Recorded Time Pneumococcal conjugate PCV20, polysaccharide IVR123 conjugate, adjuvant, PF 2 completed Roxi Sorenson [facility] 02/02/2022 11:07:03 Influenza, high-dose, quadrivalent, PF 2 completed Roxi Sorenson [facility] 02/02/2022 11:07:37 COVID-19, mRNA, LNP-S, PF, 30 mcg/0.3 mL dose 1 completed Leslie Haney [facility] 08/03/2022 09:39:04 Pneumococcal conjugate PCV 13 9 completed Not Available [facility] 05/09/2023 10:38:46 pneumococcal polysaccharide PPV23 0 completed Not Available [facility] 05/09/2023 10:38:46 zoster recombinant 2 completed Leslie Haney [facility] 08/03/2022 09:39:04 COVID-19, mRNA, LNP-S, PF, 30 mcg/0.3 mL dose 1 completed Leslie Haney [facility] 08/03/2022 09:39:04 Influenza, high-dose, trivalent, PF 0 completed Leslie Haney [facility], [facility] 08/03/2022 09:39:04 Influenza, high-dose, trivalent, PF 9 completed Leslie Haney [facility], [facility] 08/03/2022 09:39:04 Influenza, high-dose, trivalent, PF 8 completed Leslie Haney [facility] 08/03/2022 09:39:04 Influenza, high-dose, quadrivalent, PF 3 completed Roxi Sorenson [facility], [facility] 05/04/2023 09:27:12 Past Encounters Encounter ID Performer Location Encounter Start Date Encounter Closed Date Diagnosis/Indication Diagnosis SNOMED-CT Code Diagnosis ICD10 Code Diagnosis Note [id number] MALA WEBB MD UROLOGY CLOSED [address] [place] [address] 1 01/30/2017 14:18:45 01/30/2017 16:00:08 Bladder muscle dysfunction - overactive 974658993 N32.81 Recurrent urinary tract infection 228986962 N39.0 Incomplete emptying of urinary bladder 935132489 R39.14 Urge incon tinence of urine 23344307 N39.41 [id number] MALA WEBB MD UROLOGY CLOSED [address] [place] [address] 1 08/28/2018 13:14:16 08/28/2018 13:50:16 Recurrent urinary tract infection 108846255 N39.0 [id number] MALA WEBB MD SURGERY SCHEDULE [address] [place] [address] 1 09/12/2018 12:43:05 09/12/2018 12:47:24 [id number] MALA WEBB MD UROLOGY SB CLOSED [address] [place] [address] 1 12/05/2019 13:53:14 12/05/2019 15:26:11 Recurrent urinary tract infection 493279478 N39.0 [id number] MARVEL WRIGHT MD [facility] CLOSED [address] [place] [address] 0 01/05/2021 14:56:33 01/05/2021 16:04:15 Routine gynecologic examination done 7188874732 9101 Z01.419 5 year pap cuff. gets mammogram at [facility] yearly Dyspareunia 92917970 N94 .10 add some topical vaginal estrogen. mechanical stretch instructio ns. [id number] LESLYE CANADA APRN UROLOGY SB CLOSED [address] [place] [address] 05/25/2021 09:06:19 05/25/2021 10:27:44 Recurrent urinary tract infection 873099458 N39.0 Chronic in terstitial cystitis 800118636 N30.10 Overactive urinary bladder 490536521 N32.81 [id number] ENZO WRIGHT MD INTERNAL MEDICINE SB [address] [place], [place] [address] 07/28/2021 10:10:10 07/28/2021 11:33:09 Essential hypertension 61386114 I10 Hyperlipidemia 94447625 E78.5 Depressive disorder 3548 9007 F32.A Fatigue 40940961 R53.83 Obesity 642624447 E66.9 Chronic pain syndrome 37 5737924 G89.4 Long-term drug therapy 537516151 Z79.899 [id number] ENZO WRIGHT MD INTERNAL MEDICINE SB [address] [place] [address] 11/09/2021 13:07:52 11/09/2021 14:03:59 Essential hypertension 90080423 I10 Hyperlipidemia 32041684 E78.5 Depressive disorder 3548 9007 F32.A Liver func tion tests outside reference range 565209281 R94.5 Obesity 076618990 E66.9 Hypercalcemia 35680531 E 83.52 [id number] ENZO WRIGHT MD INTERNAL MEDICINE SB [address] [place] [address] 02/02/2022 09:29:04 02/02/2022 11:48:18 Adult health examination 931323499 Z00.00 Essential hypertension 55367331 I10 Hyperlipidemia 41280018 E78.5 Depressive disorder 3548 9007 F32.A Chronic pain syndrome 37 7309682 G89.4 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.0 Obesity 875545274 E66.9 Screening for malignant neoplasm of colon 937340369 Z12.11 Hypercalcemia 06639391 E 83.52 Administra tion of pneumococcal vaccine 91976642 Z23 Long-term drug therapy 360036500 Z79.899 Menopausal syndrome 1237 16450 N95.9 Administra tion of influenza vaccine 78335475 Z23 [id number] SONIA ANTHONY III, MD [place] [facility] [address] [place] [address] 04/01/2022 15:16:05 04/04/2022 07:55:26 Acute pharyngitis 027657071 J02.9 Deviated nasal septum 12 7032887 J34.2 Cough 43927883 R05.9 [id number] RICHELLE MORALES APRN SAME DAY J[facility] CLOSED [address] [place] [address] 04/22/2022 13:22:40 04/22/2022 15:31:14 Cough 58786318 R05.9 Patient with upper respirator y symptoms.D [...] needed, doxy if not improving by Monday [id number] LESLYE CANADA APRN UROLOGY SB CLOSED [address] [place] [address] 04/26/2022 13:42:27 04/26/2022 16:10:41 Recurrent urinary tract infection 624846340 N39.0 [id number] WANDA PADILLA APRN INTERNAL MEDICINE SB [address] [place] [address] 04/26/2022 13:42:27 04/26/2022 16:10:41 Ganglion cyst 18663158 M67.40 bilaterall y to wrists- referring to general surgery for evaluation of sites for removal Viral uppe r respiratory tract infection 143070477 J06.9 please start mucinex OTC for expectorat ion [id number] [place] [address] [place] [address] 05/05/2022 10:20:42 05/05/2022 16:02:35 Essential hypertension 01459133 I10 Hyperlipidemia 98227579 E78.5 Chronic pain syndrome 37 8868037 G89.4 Depressive disorder 3548 9007 F32.A Hyperparathyroidism 6699 9008 E21.3 Obesity 451750668 E66.9 Long-term drug therapy 296207400 Z79.899 Ganglion c yst of left hand 4567959303 84072 M67.442 [id number] ROBERT BOATENG MD ENDOCRINO LOGY [address] [place] [address] 05/11/2022 10:21:37 05/11/2022 11:44:19 Hypercalcemia 40443733 E83.52 E21.0 New consultati on recurrent hyperparat [...] for parathyroi d adenoma Non-toxic multinodular goiter 53410463 E04.2 Bilateral thyroid nodules on physical exam [...] e in the care of this patient. [id number] JACKSON CADENA PA-C ORTHOPEDI CS [facility] CLOSED [address] [place] [address] 05/25/2022 12:31:03 05/25/2022 13:22:26 Ganglion cyst of left volar wrist 6687283530 2996305 M67.432 She elects to observe this splint at this time, in hopes that wearing the splint to allow the area to rest will help resolve. Osteoarthr osis of the carpometacarpal joint of the thumb 04976603 M18.12 [id number] ROBERT BOATENG MD ENDOCRINO LOGY SB [address] [place] [address] 06/21/2022 08:26:30 06/21/2022 08:49:52 Osteoporosis 18893734 M81.0 According to national osteoporos is Foundation [...] equals 20% based on [place]-adapted WHO of alogorithm ) Bone density in our office today [...] 1 year follow-up bone density Primary hyperparathyroidism 10694200 E21.0 E83.52 PTH of 60 and calcium [...] without further localizing studies. Non-toxic multinodular goiter 67945281 E04.2 Bilateral thyroid nodules on physical examThyroi [...] with the above mentioned plan of care. [id number] ROBERT BOATENG MD BONE DENSITY SB [address] [place] [address] 06/21/2022 08:26:30 06/21/2022 08:49:28 Menopausal syndrome 564621046 N95.8 Primary hyperparathyroidism 48909686 E21.0 [id number] ENZO WRIGHT MD INTERNAL MEDICINE SB [address] [place] [address] 08/03/2022 10:11:21 08/04/2022 04:35:07 Essential hypertension 53847289 I10 Hyperlipidemia 74595284 E78.5 Chronic pain syndrome 37 1904495 G89.4 Hyperparathyroidism 6699 9008 E21.3 Long-term drug therapy 754049393 Z79.899 Obesity 491588167 E66.9 Screening for malignant neoplasm of colon 700172485 Z12.11 [id number] ENZO WRIGHT MD [facility] [address] [address] 11/10/2022 11:11:25 11/11/2022 04:19:13 Essential hypertension 33014236 I10 Hyperlipidemia 62175155 E78.5 Hyperparathyroidism 6699 9008 E21.0 stablecont inue current medication continue to monitorfol low up with endocrinol ogy 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 stablecont inue current medication continue to monitor Chronic pain syndrome 37 3723076 G89.4 Steatotic liver disease 320302522 K76.0 stablecont inue current medication continue to monitor Long-term drug therapy 420672573 Z79.899 Screening for malignant neoplasm of colon 593706316 Z12.11 Screening for malignant neoplasm of breast 677949336 Z12.39 [id number] ENZO WRIGHT MD [facility] [address] [address] 05/04/2023 09:18:12 05/11/2023 11:52:35 Adult health examination 943215478 Z00.00 Essential hypertension 88866389 I10 Hyperlipidemia 34751628 E78.5 Chronic pain syndrome 37 6990648 G89.4 Major depr ession in remission 42525460 F32.5 stablecont inue current medication continue to monitor Hyperparathyroidism 6699 9008 E21.0 stablecont inue current medication continue to monitorfol low up with endocrinol ogy Long-term drug therapy 187851791 Z79.899 Screening for malignant neoplasm of breast 536271596 Z12.39 Screening for malignant neoplasm of colon 132788882 Z12.11 Osteoporosis 00486924 M8 1.0 Pain of ri ght shoulder joint 8742094102 9147533 M25.511 [id number] QUINTON ORTIZ MD [facility] [address] [place] [address] 05/09/2023 10:35:45 05/09/2023 11:47:49 Osteoarthritis of right glenohumeral joint 3717360778 950335 M19.011 [id number] ENZO WRIGHT MD [facility] [address] [place] [address] 11/09/2023 10:36:31 11/14/2023 11:16:06 Essential hypertension 85611192 I10 Hyperlipidemia 72922773 E78.5 Chronic pain syndrome 37 3821369 G89.4 Major depr ession in remission 35658430 F32.5 stablecont inue current medication continue to monitor Hyperparathyroidism 6699 9008 E21.0 stablecont inue current medication continue to monitorfol low up with endocrinol ogy Long-term drug therapy 654488621 Z79.899 Fatigue 35128675 R53.83 Health Concerns Section Related Observation LastModified by Organization Detai ls LastModified Time None Recorded Concern Status LastModified by Organization Details LastModified Time None Recorded Advance Directives Directive None Recorded Payers Insurance Date Sequence Insurance Name Policy Number Policy Hensley Covered Member ID Hensley Member ID Guarantor Name 05/13/2024 1 [place]MED[place]PLACEMENT HMO) [id number] Ira S Walker [id number] Ira S Walker 05/13/2024 [employer] - DMEPOS ASSIGNED (MEDICARE DME REGION B) Ira S Walker [id number] Ira S Walker 05/04/2023 1 [place] Ira S Walker [id number] Ira S Walker 05/09/2023 2 [place] [id number] Ira S Walker [id number] Ira S Walker Notes Date Note Type Note Provider Name and Address Organization Details Recorded Time 08/04/19 23 text/htm l Hypertension is chronic, ongoing, stableHyperlipidemia is chronic, ongoing, stableChronic pain syndrome is ongoing, stableShe has had the problems for years ENZO WRIGHT MD [address] [place], [address], [facility] 08/03/2022 10:33:24 11/11/19 23 text/htm l Hypertension is chronic, ongoing, stableHyperlipidemia is chronic, ongoing, stableHyperparathyroidism is chronic, ongoing, stableDepression is chronic, ongoing, stableChronic pain syndrome is ongoing, stableShe has had the problems for years ENZO WRIGHT MD [address] [place], [address], [facility] 11/10/2022 11:34:25 05/04/19 24 text/htm l Medicare wellness visit.Hypertension is chronic, ongoing, stableHyperlipidemia is chronic, ongoing, stableChronic pain syndrome is ongoing, stable ENZO WRIGHT MD [address] [place], [address], [facility] 05/04/2023 09:51:13 05/09/19 24 text/htm l PCP:SEEN [...] a little)INJECTION: none QUINTON ORTIZ MD [address] [place], [address], [facility] 05/09/2023 12:51:59 11/09/19 24 text/htm l Hypertension is chronic, ongoing, stableHyperlipidemia is chronic, ongoing, stableChronic pain syndrome is ongoing, stableShe has had the problems for years ENZO WRIGHT MD [address] [place], [address], [facility] 11/09/2023 11:15:59 OBGyn Episode No OBEpisode recorded.
--- OUTSIDE RECORDS SUMMARY | 2024-09-16 09:57 | XMS_ITS | Data Portability ---
Author Organization [facility] [place] Address [address] [place] [address] Assessment No assessment recorded. Plan of Treatment Reminders Order Date Submit Date Provider Last Modified By Organization Details Last Modified Time Details Appointments OV EST 15 2024 10:30A M Ajit Richey Jr, MD Not available Not available Not available Lab urinalysi s, dipstick [address] [facility] [address], [address], 12/07/2022 11:54:59 Referral None recorded. Procedures bladder scan (PROC) [address] [facility] [address], [address], 12/07/2022 11:54:59 Surgeries None recorded. Imaging None recorded. Medication Orders methenami ne hippurate 1 gram tablet 2023 024 [facility], [address], [address], 12/06/2023 11:07:13 ascorbic acid (vitamin C) 500 mg tablet 2023 024 [facility], [address], [address], 12/06/2023 11:07:12 ascorbic acid (vitamin C) 500 mg tablet 2022 023 [id number], [address], [place], [address], 12/07/2022 14:19:53 Patient TargetsNo targets recorded. Patient InstructionsNo instructions recorded. Reason for Referral None Reported. Results Created Date Observation Date Name Description Value Unit Range Abnormal Flag Note LastModifiedBy Organization Detail LastModifiedTime 12/08/1912/07/2022 bladd er scan (PROC ) Calculated Residual Urine: 140ml Not Available [address], [address], 12/07/2022 11:34:23 12/08/19 23 12/07/2022 urina lysis , dipst ick Leukocytes (reference range) negati ve Not Available [address], [address], 12/07/2022 11:34:21 12/08/19 23 12/07/2022 urina lysis , dipst ick Nitrite (reference range:) negati ve Not Available [address], [address], 12/07/2022 11:34:21 12/08/19 23 12/07/2022 urina lysis , dipst ick Urobilinogen (reference range) 0.2 Not Available [address], [address], 12/07/2022 11:34:21 12/08/19 23 12/07/2022 urina lysis , dipst ick Protein (reference range) trace Not Available [address], [address], 12/07/2022 11:34:21 12/08/19 23 12/07/2022 urina lysis , dipst ick pH (reference range 5-8.5) 5.5 Not Available [address], [address], 12/07/2022 11:34:21 12/08/19 23 12/07/2022 urina lysis , dipst ick Blood (reference range:) non-He molyze d: Trace Not Available [address], [address], 12/07/2022 11:34:21 12/08/19 23 12/07/2022 urina lysis , dipst ick Specific [place] (reference range) 1.020 Not Available [address], [address], 12/07/2022 11:34:21 12/08/19 23 12/07/2022 urina lysis , dipst ick Ketone (reference range) negati ve Not Available [address], [address], 12/07/2022 11:34:21 12/08/19 23 12/07/2022 urina lysis , dipst ick Bilirubin (reference range) negati ve Not Available [address], [address], 12/07/2022 11:34:21 12/08/19 23 12/07/2022 urina lysis , dipst ick Glucose (reference range) negati ve Not Available [address], [address], 12/07/2022 11:34:21 12/08/19 23 12/07/2022 urina lysis , dipst ick Color (reference range: yellow-brown ) Yellow Not Available [address], [address], 12/07/2022 11:34:21 Result Notes None recorded. Problems Name Problem SNOMED Code Status Onset Date Resolution Date Notes Provider Name and Address Organization Details Recorded Time Hypertensive disorder 05826579 Active 2022 TESSIE Lawson [place] [facility] [place] 3 10:23:52 Thyroiditis 94660422 Active 2022 Bipin grant, TESSIE Duron [place] 3 10:23:57 Hyperchloremia 45173612 Active 2022 TESSIE Lawson [place] 3 10:24:07 Arthritis 9808934 Active 2022 TESSIE Lawson [place] 3 10:24:14 Problem Notes None recorded. Procedures Surgical History Date Name Laterality Status Provider Name and Address Organization Details Recorded Time Total Hysterectomy completed Ella FISHER [facility] & [place] 12/07/2022 10:25:19 cholecystectomy completed Bipin Duron [place] 12/07/2022 10:25:26 appendectomy completed Bipin FISHER [facility] & [place] 12/07/2022 10:25:32 total replacement of hip completed Bipin FISHER [facility] & [place] 12/07/2022 10:25:46 total knee replacement completed Bipin FISHER [facility] & [place] 12/07/2022 10:27:00 parathyroidectomy completed Bipin FISHER [facility] & [place] 12/07/2022 10:27:09 Imaging Results None recorded. Procedure Notes None recorded. Medical Equipment None Reported. Allergies Allergen ID Allergen Name Allergen Category Reaction Reaction Severity Criticality Documentation Date Start Date Code Code System Note Provider Name and Address Organization Details Recorded Time 41704 Substance with sulfonami de structure and antibacte rial mechanism of action (substanc e) medicatio n Not available Not available Not available 12/07/2022 04413 8003 SNOMED TESSIE Lawson LPNT Oliverio [place] 3 10:23:07 Medications Name Sig Start Date [...] Updated DateTime 12/06/2023 160.02 cm 34.5 kg/m2 46110.51 g 97.9 [degF] [facility] & [place] 12/06/2023 10:41:14 Date Recorded Body height Body mass index (BMI) Body weight Body temperature Provider Name and Address Organization Details Last Updated DateTime 12/07/2022 160.02 cm 34.5 kg/m2 76032.51 g 97.6 [degF] [facility] & [place] 12/07/2022 10:22:51 Social History None recorded. Functional Status Question Answer Note LastModified by Organization D etails LastModified Time What is your level of alcohol consumption? None [email or web address] Information not available 12/07/2022 Mental Status None recorded. Family History Relationship Description Onset Age of this Age Resolved Age Notes LastModified by Organization Details LastModified Time Mother Chronic obstructive pulmonary disease dec [email or web address] Not available 2022 10:24:38 Father Heart disease dec [email or web address] Not available 2022 10:24:50 Brother Family history unknown Not available 2022 10:24:59 Medical History No medical history recorded. Gynecological HistoryNo gynecological history recorded. Obstetrics History GPAL:G 0 P 0 0 0 0 Past Encounters Encounter ID Performer Location Encounter Start Date Encounter Closed Date Diagnosis/Indication Diagnosis SNOMED-CT Code Diagnosis ICD10 Code Diagnosis Note [id number] Ajit Richey Jr, MD [facility] [address] [address] 12/07/2022 10:05:55 12/07/2022 10:56:57 Recurrent urinary tract infection 645790091 N39.0 Patient with recurrent urinary tract infections [...] has further UTI she is to follow-up. [id number] Ajit Richey Jr, MD [facility] [address] [address] 12/06/2023 10:33:30 12/06/2023 11:06:37 Recurrent urinary tract infection 020285287 N39.0 Patient with recurrent urinary tract infections for several years. She Was previously seen at the [facility] with transferre care here a year ago. [...] Member ID Guarantor Name 12/06/2023 2 [place] [id number] Ira Cardoso [id number] Ira Modiford 12/06/2023 1 [place] Ira Modiford [id number] Ira Modiford 12/06/2023 [place] - [facility] (MEDICARE) Ira Modiford [id number] Ira Rodney Walker 12/06/2023 1 [place] ([place] [id number] Ira Cardoso [id number] Ira Cardoso Notes Date Note Type Note Provider Name and Address Organization Details Recorded Time 12/07/2022 text/html Patient is a 72-year-old white female referred for recurrent urinary tract infections. She states she is had urinary tract infections for years. She states she is seen Urology at [facility] but he is wishing to change care. [...] of 140 cc. Ajit Richey Jr, MD [address] [place] [address], [address], [address], [facility] & [place] 12/07/2022 14:23:25 12/06/2023 text/html patient is a [...] tries to avoid. Ajit Richey Jr, MD [address] [place] [address] Drive, [address], [place], [address], [facility] & [place] 12/06/2023 12:55:25 OBGyn Episode No OBEpisode recorded.
--- OUTSIDE RECORDS SUMMARY | 2024-09-16 09:57 | XMS_ITS | Clinical Summary ---
Author Organization [facility] Address [address] [place] [address] Care Team Providers Care Face Burler Name Role Phone Enzo Wright MD Primary Care Provider [phone] Allergies Active Allergy Reactions Criticality Noted Date [...] (08/01/2022): Added automatically from request for surgery [id number] Obesity (BMI 35.0-39.9 without comorbidity) 10/2021 Severe [...] history exists UKY-Bone Density Scan 06/22/2023 06/21/2022 BPM-XBUAT-12 Vaccine (3 - season) 2023 05/22/2020, 04/28/2020 [...] this topic Medical Devices Implanted Type Area Machine Shop Helper Device Identifier Shelf Expiration Date Model / Serial / Lot Cement Palacos - [id number] Implanted:Qty: 2 on 10/04/2022 by Juan Salinas MD at [facility] Left: Knee [employer]-[id number] 03/26/2027 [id number] / / [id number] Chg Femoral Legion Cr Nrrw Oxin Sz6 Lt - [id number] Implanted:Qty: 1 on 10/04/2022 by Juan Salinas MD at [facility] Left: Knee [employer]-[id number] 03/14/2032 [id number] / / [id number] Chg Tibial Gns Ii Cmt Size 4 L - [id number] Implanted:Qty: 1 on 10/04/2022 by Juan Salinas MD at [facility] Left: Knee [employer]-[id number] 04/20/2032 [id number] / / [id number] Knee Insert Ii Dished Sz 3-4 9mm - [id number] Implanted:Qty: 1 on 10/04/2022 by Juan Salinas MD at [facility] Left: Knee [employer]-[id number] 05/05/2031 [id number] / / [id number] Chg Patella Gii Oval Resurfaci - [id number] Implanted:Qty: 1 on 10/04/2022 by Juan Salinas MD at [facility] Left: Knee [employer]-[id number] 03/29/2032 [id number] / / [id number] Insurance [facility] Advance Directives * Full Code (Latest Code Status on File) Date Activated Date Inactivated Comments 10/04/2022 9:17 AM 10/05/2022 3:34 PM Question Answer Comments Patient has decision-making capacity? Yes Care Teams Face Burler Relationship Specialty Start Date End Date Enzo Wright MD [id number] [id number] PCP - General 10/04/22
[2024-09-16 09:58] LABS: Bacteria,Urine 1+ /lpf; RBC,Urine Occasional #/hpf (0-3)
--- NOTE | 2024-09-16 10:12 | CT_ITS ---
FINAL REPORT TECHNIQUE: Pre-and postcontrast images of the abdomen through the pelvis were performed by computed tomography. Extensive 3-D reconstruction images were performed. A CTA was performed. This study was performed with techniques to keep radiation doses as low as reasonably achievable (ALARA). Individualized dose reduction techniques using automated exposure control or adjustment of mA and/or kV according to the patient's size were employed. CLINICAL HISTORY: Fall 2 weeks ago, LLQ abdominal pa COMPARISON: None FINDINGS: ABDOMEN: The lung bases are clear. Cyst is noted in the anterior liver dome. Fatty changes noted of the liver. The remaining solid organs are normal. The patient is status post cholecystectomy. No evidence of bowel obstruction. PELVIS: There is significant wall thickening of the distal descending colon and proximal sigmoid colon which could be due to diverticulitis, less likely is other forms of colitis or neoplasm. There is nonvisualization of the appendix, possibly removed at time of hysterectomy. The urinary bladder is unremarkable. Severe streak artifact is noted in the lower pelvis from bilateral hip arthroplasties. CTA: The abdominal aorta is proper caliber. The SMA, celiac axis, and CRISTAL are patent. There is no significant stenosis or calcification. The renal arteries are patent bilaterally. The iliac arteries are patent bilaterally. IMPRESSION: Abnormal wall thickening and stranding of the distal descending colon and proximal sigmoid colon, favor diverticulitis. However, follow-up colonoscopy is recommended. Unremarkable CTA of the abdomen and pelvis. Reviewed, Interpreted and Dictated by Kavitha Pollack MD Transcribed by Fatou Baker Authenticated and [facility]
--- NOTE | 2024-09-16 10:12 | HMH.EDGENADL ---
Discharge Plan Disposition Patient Disposition: Home, Self-Care Prescriptions Prescriptions: New amoxicillin-pot clavulanate [Augmentin] 500-125 mg tablet 1 tab PO Q12H 7 Days Qty: 14 0RF No Action losartan 50 mg tablet 50 mg PO DAILY Patient Comments: TAKE 1 TABLET BY MOUTH EVERY DAY ascorbate calcium (vitamin C) 500 mg tablet 500 mg PO TID mupirocin calcium 2 % cream 1 applic topical TID Qty: 30 1RF Rx Instructions: Use on wound until infection has resolved. ezetimibe 10 mg tablet 10 mg PO DAILY Qty: 90 1RF simvastatin 40 mg tablet 40 mg PO DAILY Qty: 90 1RF methenamine hippurate 1 gram tablet 1 g PO BID Qty: 180 1RF alendronate 70 mg tablet 70 mg PO WEEKLY Qty: 90 1RF gabapentin 600 mg tablet 600 mg PO BID Qty: 180 0RF venlafaxine 37.5 mg tablet See Rx Instructions .ROUTE .COMPLEX Qty: 90 0RF Dose Instruction: Take 1 tablet by mouth once daily Rx Instructions: Take 1 tablet by mouth once daily Wegovy 0.25 mg/0.5 mL pen injector 0.25 mg SQ WEEKLY Qty: 2 0RF hydrocodone-acetaminophen 5-325 mg tablet 1 tab PO Q4H PRN (Reason: Postop pain) Qty: 30 0RF Referrals Follow up/Referrals: Dave Herrera MD [Primary Care Provider, Medical] - See instructions Activity Restrictions/Add. Instructions Additional Instructions/Restrictions: Please follow-up with your primary doctor. Please take the antibiotics as prescribed. Clinical Impressions Clinical Impression: Diverticulitis Instructions Patient Instructions: DI for Acute Abdominal Pain Print Language Print Language: Chadian Discharge ED Provider: Clay Murphy Adult HPI General Chief complaint: Abdominal Pain Stated complaint: abd pain Time Seen by Provider: 09/16/24 09:38 Mode of Arrival: Wheelchair Source of Information: Patient Description of Symptoms (Recalled from ER Triage Doc. by RN): Pt reports having lower abdominal pain with nausea, and diarhhea which has been coming and going for approx 10 days. Pt states the pain also come and goes. She states she is currently not having pain. History of Present Illness HPI narrative: Ira is a 73-year-old past medical history of hypertension, hyperparathyroidism, hyperlipidemia presenting for abdominal pain. Patient said she fell about 2 weeks ago and sustained a head injury, left wrist fracture and was discharged. She recently had surgery for her wrist fracture but said that she has been having left lower quadrant abdominal pain over the last 2 weeks. Patient said that she has had loose stools without any blood in it in the abdominal pain last 5 to 10 seconds at a time. She has never had pain like this before, but this morning the pain was more severe and lasted longer than previously. Family bedside noted that she was having reproducible pain when they would hit bumps on the way here. At this time denies vomiting, chest pain, shortness of breath, numbness, tingling, vaginal bleeding or discharge Related Data Home Medications ?Medication ?Instructions ?Recorded ?Confirmed losartan 50 mg tablet 50 mg PO DAILY 10/13/22 09/06/24 ascorbate calcium (vitamin C) 500 500 mg PO TID 12/20/23 09/06/24 mg tablet Previous Rx's ?Medication ?Instructions ?Recorded ezetimibe 10 mg tablet 10 mg PO DAILY #90 tabs 01/08/24 simvastatin 40 mg tablet 40 mg PO DAILY #90 tabs 01/26/24 methenamine hippurate 1 gram tablet 1 g PO BID #180 tabs 05/17/24 alendronate 70 mg tablet 70 mg PO WEEKLY #90 tabs 06/10/24 gabapentin 600 mg tablet 600 mg PO BID #180 tabs 07/30/24 venlafaxine 37.5 mg tablet See Rx Instructions .Route 08/01/24 .COMPLEX #90 tabs mupirocin calcium 2 % topical cream 1 applic topical TID #30 grams 09/04/24 hydrocodone 5 mg-acetaminophen 325 1 tab PO Q4H PRN Postop pain #30 09/06/24 mg tablet tabs semaglutide (weight loss) 0.25 0.25 mg (0.5 mL) SQ WEEKLY #2 mL 09/06/24 mg/0.5 mL subcutaneous pen injector (Wegovy) amoxicillin 500 mg-potassium 1 tab PO Q12H 7 days #14 tabs 09/16/24 clavulanate 125 mg tablet (Augmentin) Allergies Allergy/AdvReac Type Severity Reaction Status Date / Time Sulfa (Sulfonamide Allergy Hives Verified 09/06/24 06:28 Antibiotics) [facility] Disclaimer: The information contained in this section may have been updated after the patient was seen, as this information can be updated by other users. Medical History (Updated 09/16/24 @ 12:13 by Clay Murphy MD) Osteoporosis Acute bacterial tonsillitis Anxiety Hyperlipidemia Hypertension Urinary tract infection UTI (urinary tract infection) COVID-19 virus test result unknown Viral URI Surgical History History of lumbar surgery Hip joint replacement status History of colonoscopy H/O thyroidectomy History of cholecystectomy History of appendectomy History of hysterectomy History of left knee replacement History of right hip replacement History of left hip replacement Family History Other Family history of heart disease Social History (Updated 09/06/24 @ 07:13 by Boo Watters CRNA) Smoking Status: Never smoker alcohol intake: never substance use type: denies use current occupational status: employed and retired Travel in the last 8 weeks?: None Have you lived/traveled outside US in past 30 days?: No Contact w/someone who lives/traveled outside US past 30 days?: No Exposure to someone with infectious disease in past 14 days?: No Do you have a fever (greater than 100.4 F or 38 C)?: No Have you tested positive for COVID-19?: No Exposed to someone with COVID-19 in past 14 days?: No Do you have a sore throat?: No Do you have a cough?: No Do you have any weakness?: No Do you have any diarrhea?: No Are you experiencing any unusual bleeding?: No Do you have any muscle aches/pain?: No Do you have any abdominal pain?: Yes Are you experiencing loss of taste or smell?: No Other Medical History Have you received the Flu Vaccine for this season: No Have you received the Pneumonia Vaccine: Yes ROS Obtained: Yes All systems reviewed & no additional complaints except as documented Physical Exam General General appearance: alert and in no apparent distress Eye Eye exam: Present normal appearance Chest Chest inspection: Present normal inspection and symmetric chest wall rise; Absent tenderness Respiratory Respiratory exam: Present normal lung sounds bilaterally; Absent respiratory distress Cardiovascular Cardiovascular exam: Present regular rate Abdominal Exam Abdominal exam: Present soft and tenderness (Left lower quadrant, no flank or CVA tenderness); Absent distention, guarding, rebound or rigidity Back Exam Back exam: Present normal inspection and full ROM; Absent tenderness, CVA tenderness (R), CVA tenderness (L), muscle spasm or paraspinal tenderness Neurological Exam Neurological exam: Present alert Medical Decision Making Medical Records Screening: Per USPSTF and CDC recommendations, given the prevalence of disease in our region, it is our hospital?s policy to screen for HIV and viral Hepatitis for all patients aged 18 and over and those with ongoing risk factors. Solomon Inquiry Pt receiving controlled substance: No Vital Signs: 09/16/24 09:44 09/16/24 09:49 09/16/24 10:00 Temperature 99.3 F Temperature Source Oral Pulse Rate 91 H 86 Pulse Rate [Left] 92 H Respiratory Rate 16 Blood Pressure 133/79 123/82 Blood Pressure [Right Arm] 133/79 Blood Pressure Mean Blood Pressure Mean [Right Arm] 97 Blood Pressure Source Blood Pressure Source [Right Arm] Automatic Cuff 02 Sat by Pulse Oximetry 96 95 97 Oxygen Delivery Method Room Air Room Air Room Air 09/16/24 10:15 09/16/24 10:30 09/16/24 11:13 Temperature Temperature Source Pulse Rate 88 82 79 Pulse Rate [Left] Respiratory Rate 18 18 Blood Pressure 123/82 141/85 H 128/74 Blood Pressure [Right Arm] Blood Pressure Mean 98 92 Blood Pressure Mean [Right Arm] Blood Pressure Source Blood Pressure Source [Right Arm] 02 Sat by Pulse Oximetry 96 93 L 97 Oxygen Delivery Method 09/16/24 11:30 09/16/24 12:00 09/16/24 12:17 Temperature 98.4 F Temperature Source Oral Pulse Rate 83 84 85 Pulse Rate [Left] Respiratory Rate 18 16 Blood Pressure 132/74 115/74 115/74 Blood Pressure [Right Arm] Blood Pressure Mean 86 87 Blood Pressure Mean [Right Arm] Blood Pressure Source Automatic Cuff Blood Pressure Source [Right Arm] 02 Sat by Pulse Oximetry 97 96 Oxygen Delivery Method Room Air Lab Data Lab Results 09/16/24 09:45: Urine Color Yellow, Urine Appearance Clear, Urine pH 6.0, Ur Specific [place] 1.015, Urine Protein Trace, Urine Glucose (UA) Negative, Urine Ketones Negative, Urine Blood Trace-i, Urine Nitrate Negative, Urine Bilirubin Negative, Urine Urobilinogen 1.0, Ur Leukocyte Esterase Trace, Urine RBC Occasional, Urine WBC 3-5, Ur Squamous Epith Cells 5-10, Urine Bacteria 1+ 09/16/24 09:55: WBC 11.6 H, RBC 4.29, Hgb 12.6, Hct 38.2, MCV 89.0, MCH 29.4, MCHC 33.0, RDW 13.5, Plt Count 251, MPV 9.1, Neut % (Auto) 81.9 H, Lymph % (Auto) 9.2 L, [place] % (Auto) 7.6, Eos % (Auto) 0.5, Baso % (Auto) 0.4, Neut # (Auto) 9.5 H, Lymph # (Auto) 1.1, [place] # (Auto) 0.9, Eos # (Auto) 0.1, Baso # (Auto) 0.1, Sodium 136, Potassium 3.6, Chloride 103, Carbon Dioxide 31 H, Anion Gap 5.6, BUN 9, Creatinine 0.50 L, Estimated Creat Clear 64, Estimated GFR 121, Est GFR ( Amer) 146, Glucose 120 H, Calcium 11.5 H, Total Bilirubin 0.9, AST 27, ALT 22, Alkaline Phosphatase 74, Troponin I < 0.01, Total Protein 7.9, Albumin 4.4, Globulin 3.5 H, Albumin/Globulin Ratio 1.3, Lipase 50 09/16/24 11:33: Lactate 0.8 09/16/24 09:55 09/16/24 09:55 Orders (Tests/Meds): ED MEDICATIONS Discontinued Medications Generic Name Dose Route Start Last Admin Trade Name Freq PRN Reason Stop Dose Admin Iopamidol 80 ml 09/16/24 10:57 09/16/24 11:04 Iopamidol-370 (76%);100ml Bottle IV 09/16/24 10:58 80 ml ONCE ONE Administration Sodium Chloride 50 ml 09/16/24 10:57 09/16/24 11:04 0.9 % Sodium Chloride 50 Ml Vial IV 09/16/24 10:58 50 ml ONCE ONE Administration Sodium Chloride 10 ml 09/16/24 10:57 09/16/24 11:04 Sodium Chloride 0.9% 10ml Syr (Rad Only) IV 10/16/24 10:56 10 ml NEEDED PRN Administration Maintain IV Site ORDERS Category Date Time Status CT angio abdomen pelvis Stat Cat Scan 09/16/24 10:12 Completed Hand XR right minimum 3 views [XR hand RT min 3V] Stat Exams 09/16/24 10:16 Completed Complete Blood Count Auto Diff Stat Lab 09/16/24 09:55 Completed Comprehensive Metabolic Panel Stat Lab 09/16/24 09:55 Completed Lactic Acid Stat Lab 09/16/24 11:33 Completed Lipase Stat Lab 09/16/24 09:55 Completed Troponin I Stat Lab 09/16/24 09:55 Completed UA [Urinalysis and Microscopic] Stat Lab 09/16/24 09:45 Completed Medical Decision Narrative: In summary, this 73-year-old presents to the emergency department today with abdominal pain. On initial evaluation patient is hemodynamically stable in no acute distress. She has obvious tenderness to her left lower quadrant but no distention. With her worsening pain and no imaging done with her initial trauma evaluation we will do a CT scan to rule out acute injury. Additionally patient has had some pain in her fifth metacarpal area since the fall but has no deformity. Will get x-rays to rule out acute injury as well. She has had no falls since this initial fall 2 weeks ago. Differential diagnosis includes but is not limited to intra-abdominal injury, hemoperitoneum, electrolyte abnormality, constipation, ileus, small bowel obstruction. Based on these concerns, I ordered CT scan, labs. Labs personally reviewed demonstrate mild leukocytosis, no anemia, no NANI,. CT imaging personally interpreted demonstrate no obvious hemoperitoneum or pneumoperitoneum. I personally reviewed patient x-ray and showed no fracture or dislocation On reassessment pain is well-controlled and she was in no acute distress. I discussed the findings of her CT abdomen pelvis with her that showed concern for possible diverticulitis. Started her on Augmentin. She is otherwise well-appearing and in no acute distress. Discussed close follow-up with her primary care doctor and was discharged in stable conditions with strict return precautions. Critical Care Critical Care Time Critical Care Time: No
--- NOTE | 2024-09-16 10:16 | XR_ITS ---
FINAL REPORT CLINICAL HISTORY: Fifth metacarpal pain, fall COMPARISON: None FINDINGS: Three views of the right hand show no evidence of acute displaced fracture or dislocation of the visualized bony architecture. There are advanced diffuse osteoarthritic changes. Osteopenia is noted. IMPRESSION: No acute bony abnormality. Reviewed, Interpreted and Dictated by Kavitha Pollack MD Transcribed by Fatou Baker Authenticated and [facility]
[2024-09-16 10:20] LABS: Basophils # 0.1 K/mm3 (0-0.2); Basophils % 0.4 % (0.1-2.0); Eosinophils # 0.1 Kmm3 (0.0-0.4); Eosinophils % 0.5 % (0.1-12.0); Hematocrit 38.2 % (37.0-47.0); Hemoglobin 12.6 g/dL (12.2-16.2); Immature Granulocytes # 0.05 10^3uL; Immature Granulocytes % 0.4 %; Lymphocytes # 1.1 K/mm3 (0.7-4.5); Lymphocytes % 9.2 % (10-50); Mean Corpuscular Hemoglobin 29.4 pg (27.0-31.2); Mean Platelet Volume 9.1 fl (7.4-10.4); Monocytes # 0.9 K/mm3 (0.1-1.0); Monocytes % 7.6 % (1.7-9.3); Neutrophils # 9.5 K/mm3 (1.8-7.8); Neutrophils % 81.9 % (37.0-80.0); Nucleated Red Blood Cells # 0 10^3/uL; Nucleated Red Blood Cells % 0 %; Platelet Count 251 K/mm3 (142-424); Red Blood Count 4.29 M/mm3 (4.20-5.40); Red Cell Distribution Width 13.5 % (11.5-17.5); White Blood Count 11.6 K/mm3 (4.8-10.8)
[2024-09-16 10:27] LABS: Alanine Aminotransferase 22 U/L (12-78); Albumin Level 4.4 g/dl (3.5-5.0); Albumin/Globulin Ratio 1.3 (1.1-1.8); Alkaline Phosphatase 74 U/L (38-126); Anion Gap 5.6 mEq/L (5-15); Aspartate Amino Transferase 27 U/L (14-36); Bilirubin,Total 0.9 mg/dl (0.2-1.3); Blood Urea Nitrogen 9 mg/dl (7-17); Calcium 11.5 mg/dl (8.4-10.2); Carbon Dioxide 31 mmol/L (22.0-30.0); Chloride 103 mmol/L (98-107); Creatinine Clearance Estimated 64 mL/min (50-200); Estimated Glomerular Filt Rate 121 ml/min (>60); GFR (African American) 146 ML/MIN (>60); Globulin 3.5 g/dL (1.3-3.2); Glucose 120 mg/dl (74-100); Lipase 50 U/L (23-300); Potassium 3.6 mmoL/L (3.5-5.1); Sodium 136 mmol/L (136-145); Total Protein,Serum 7.9 g/dl (6.3-8.2)
[2024-09-16 10:44] LABS: Troponin I < 0.01 ng/ml (0.00-0.034)
[2024-09-16] MEDS: 0.9 % SODIUM CHLORIDE 50 ML VIAL IV (11:04)
[2024-09-16] MEDS: IOPAMIDOL-370 (76%);100ML BOTTLE 80 ML IV (11:04)
[2024-09-16] MEDS: SODIUM CHLORIDE 0.9% 10ML SYR (RAD ONLY) 10 ML IV (11:04)
[2024-09-16 11:49] LABS: Lactic Acid 0.8 mmol/L (0.7-2.1)
--- NOTE | 2024-09-16 11:51 | PC.NURSE ---
assisted moving pt up in the bed for comfort. no other needs
== END 2024-09-16 12:22 | disposition home or self-care (01) ==
PROVIDERS: Emergency Provider Student in an Organized Health Care Education/Training Program; PCP Internal Medicine
DX: R10.30 Lower abdominal pain, unspecified (principal); K57.32 Diverticulitis of large intestine without perforation or abscess without bleeding; R11.0 Nausea; R19.7 Diarrhea, unspecified; M79.641 Pain in right hand
CPT/HCPCS: 73130; 74174; 80053; 81001; 83605; 83690; 84484; 85025; 99284; Q9967

== ENCOUNTER 2024-09-19 12:31 | Outpatient (CLI) | payer MEDICARE, SELFPAY ==
--- OUTSIDE RECORDS SUMMARY | 2024-09-19 12:33 | XMS_ITS | Clinical Summary ---
Author Organization [facility] Address [address] [place] [address] Care Team Providers Care Turnaround Planner Name Role Phone Enzo Wright MD Primary Care Provider [phone] Allergies Active Allergy Reactions Criticality Noted Date [...] (08/01/2022): Added automatically from request for surgery [id number] Obesity (BMI 35.0-39.9 without comorbidity) 10/2021 Severe [...] history exists UKY-Bone Density Scan 06/22/2023 06/21/2022 [id number] Vaccine (3 - season) 2023 05/22/2020, 04/28/2020 [...] this topic Medical Devices Implanted Type Area Melter Supervisor Electric Arc Furnace Device Identifier Shelf Expiration Date Model / Serial / Lot Cement Palacos - [id number] Implanted:Qty: 2 on 10/04/2022 by Juan Salinas MD at [facility] Left: Knee [id number] 03/26/2027 [id number] / / [id number] Chg Femoral Legion Cr Nrrw Oxin Sz6 Lt - [id number] Implanted:Qty: 1 on 10/04/2022 by Juan Salinas MD at [facility] Left: Knee [employer]-[id number] 03/14/2032 [id number] / / [id number] Chg Tibial Gns Ii Cmt Size 4 L - [id number] Implanted:Qty: 1 on 10/04/2022 by Juan Salinas MD at [facility] Left: Knee [employer]-[id number] 04/20/2032 [id number] / / [id number] Knee Insert Ii Dished Sz 3-4 9mm - [id number] Implanted:Qty: 1 on 10/04/2022 by Juan Salinas MD at [facility] Left: Knee [employer]-[id number] 05/05/2031 [id number] / / [id number] Chg Patella Gii Oval Resurfaci - [id number] Implanted:Qty: 1 on 10/04/2022 by Juan Salinas MD at [facility] Left: Knee [employer]-[id number] 03/29/2032 [id number] / / [id number] Insurance [facility] MEDICARE Advance Directives * Full Code (Latest Code Status on File) Date Activated Date Inactivated Comments 10/04/2022 9:17 AM 10/05/2022 3:34 PM Question Answer Comments Patient has decision-making capacity? Yes Care Teams Turnaround Planner Relationship Specialty Start Date End Date Enzo Wright MD [id number] [phone] PCP - General 10/04/22
--- NOTE | 2024-09-19 12:35 | XR_ITS ---
FINAL REPORT CLINICAL HISTORY: Left arm orif COMPARISON: 09/01/2024 FINDINGS: LEFT WRIST THREE VIEW FINDINGS: Three views show post ORIF changes of the distal radius. Fracture line remains evident. There is a up to 6 mm of displacement which may be worse since the prior exam. Distal scaphoid cyst is noted. The carpus is otherwise unremarkable. IMPRESSION: Post ORIF changes without callus formation or bony union. Continued follow-up recommended. Reviewed, Interpreted and Dictated by Kavitha Pollack MD Transcribed by Fatou Baker Authenticated and . [facility]
== END 2024-09-19 23:59 | disposition home or self-care (01) ==
LOC: RAD 12:31
PROVIDERS: PCP Internal Medicine; Visit Provider Orthopaedic Surgery
DX: S52.502D Unspecified fracture of the lower end of left radius, subsequent encounter for closed fracture with routine healing (principal)
CPT/HCPCS: 73110

== ENCOUNTER 2024-10-24 12:25 | Outpatient (CLI) | payer MEDICARE, SELFPAY ==
--- OUTSIDE RECORDS SUMMARY | 2024-10-24 12:27 | XMS_ITS | Clinical Summary ---
Author Organization [facility] Address [address] [place] [address] Care Team Providers Care Data Security Analyst Name Role Phone Enzo Wright MD Primary Care Provider [phone] Allergies Active Allergy Reactions Criticality Noted Date Comments Sulfa Antibiotics Hives,Itching 12/21/2017 Medications venlafaxine (EFFEXOR) 37.5 MG tablet 10/31/2017 Active gabapentin (NEURONTIN) 600 MG tablet 1 tablet 2 (Two) Times a Day. 11/15/2017 Active simvastatin (ZOCOR) 40 MG tablet 10/17/2017 Active losartan (COZAAR) 50 MG tablet 12/08/2017 Active methenamine (HIPREX) 1 g tablet 12/10/2017 Active ibuprofen (ADVIL,MOTRIN) 200 MG tablet Take 1 tablet by mouth Every 6 (Six) Hours As Needed for Mild Pain. Active ezetimibe (ZETIA) 10 MG tablet 05/18/2022 Active alendronate (FOSAMAX) 70 MG tablet 06/21/2022 Active Active Problems Problem Noted Date Diagnosed Date Lumbar disc disease with radiculopathy 8 Lumbar stenosis with neurogenic claudication 08/2017 Moderate obesity 03/01/2018 Degenerative disc disease, lumbar 12/21/2017 Bulging lumbar disc 12/21/2017 Overview (12/21/2017): multiple Family History Medical History Relation Name Comments Heart disease Father COPD Mother Breast cancer Neg Hx Ovarian cancer Neg Hx Relation Name Status Comments Father Mother Social History Tobacco Use Types Packs/Day Years Used Date Smoking Tobacco: Never Smokeless Tobacco: Never Tobacco Cessation:Counseling Given: Not Answered Alcohol Use Standard Drinks/Week Comments Yes 0 (1 standard drink = 0.6 oz pur e alcohol) Abuse Screen Answer Date Recorded Unsafe at Home or Work/School Not on file Feels Threatened by Someone? Not on file 11/2022 Does Anyone Keep You from Co ntacting Others or Doint Things Outside the Home? Not on file 01/02/2023 Physical Sign of Abuse Present Not on file 1 Housing Stability Answer Date Recorded Current Living Arrangements Not on file 11/2022 Potentially Unsafe Housing Conditions Not on angeles e 01/02/2023 Family and Community Support Answer Vazquez e Recorded Help with Day-to-Day Activities Not on file 01/02/2023 Lonely or Isolated Not on file 01/02/2023 Employment Answer Date Recorded Do you want help finding or keeping work or a steph b? Not on file 01/02/2023 Disabilities Answer Date Recorded Concentrating, Remembering, or Making Decisions Difficulty Not on file 01/02/2023 Doing Errands Independently Difficulty Not on fi le 01/02/2023 Education Answer Date Recorded Help with school or training? Not on file Preferred Language Not on file 01/02/2023 Comments No Sex and Gender Information Value Date Recorded Sex Assigned at Not on file Legal Sex Female 11:59 AM EDT Gender Identity Not on file Sexual Orientation Not on file Last Filed Vital Signs Vital Sign Reading Time Taken Comments Blood Pressure 122/82 05/20/2022 11:39 AM EST Pulse 84 02/09/2019 12:00 PM EST Temperature 37.4 C (99.4 F) 02/09/2019 12:00 PM EST Respiratory Rate 12 02/09/2019 12:00 PM EST Oxygen Saturation 98% 02/09/2019 12:00 PM EST Inhaled Oxygen Concentration - - Weight 84.6 kg (186 lb 6.4 oz) 05/20/2022 11:39 AM EST Height 160 cm (5' 2.99 ) 05/20/2022 11:39 AM EST Body Mass Index 33.03 05/20/2022 11:39 AM EST Plan of Treatment Health Maintenance Due Date Last Done Comments DXA SCAN 1949 TDAP/TD VACCINES (1 - Tdap) 1968 COLOGUARD 1994 COLON CANCER SCREENING 5 YEA R SIGMOIDOSCOPY 1994 COLONOSCOPY 1994 [address] CANCER SCREENING 1994 CT COLONOGRAPHY 1994 FECAL OCCULT BLOOD TEST 1994 FIT Testing (1 year) 1994 ANNUAL WELLNESS VISIT 12/21/2017 HEPATITIS C SCREENING 12/21/2017 ZOSTER VACCINE (2 of 2) 01/18/2022 11/23/2021, 11/08 MAMMOGRAM 05/11/2023 05/11/2021, 0208/2019, 07/18/2017, Additional history exists COVID-19 Vaccine (2023-2 5 season) 2023 05/22/2020, 04/28/2020 INFLUENZA VACCINE 12/25/2024 02/02/2022, , 02/09/2019, Additional history exists Pneumococcal Vaccine 50+ Completed 022, 01/09/2020, 01/08/2019 Procedures Procedure Name Priority Date/Time Associated Diagnosis Comments MAMMO SCREENING DIGITAL TOMOSYNTHESIS BILATERAL W CAD Routine 05/11/2021 2:24 PM EST Visit for screening mammogram from Last 3 Months or Most Recently Relevant to Health Maintenance Results * Mammo Screening Digital Tomosynthesis Bilateral With CAD (05/11/2021 2:24 PM EST) Anatomical Region Laterality Modality Breast N/A Mammography 05/17/2021 3:14 PM EST Impressions 05/17/2021 3:16 PM EST No findings suspicious for malignancy. ACR BI-RADS CATEGORY: 1, NEGATIVE RECOMMENDATION: Yearly mammogram, yearly clinical breast exam, and encourage self breast awareness. CAD was used. The standard false negative rate of mammography is between 10% and 25%. Complex patterns or increased breast density will markedly elevate the false negative rate of mammography. A letter, in lay terminology, with the results of this exam will be mailed to the patient. If there is a palpable area of concern, biopsy should be considered regardless of imaging findings. This report was finalized on 05/17/2021 3:16 PM by Kamille Castrejon MD. Narrative 05/17/2021 3:16 PM EST ROUTINE DIGITAL SCREENING MAMMOGRAM WITH TOMOSYNTHESIS HISTORY: Routine screening. IMAGE COMPARISON: Extending to 2017. TECHNIQUE: Low dose full field digital breast tomosynthesis imaging was performed with 2D and 3D acquisitions consisting of bilateral CC and MLO views. FINDINGS: The breasts are predominantly adipose tissue. The fibroglandular pattern appears stable. There is no mass, worrisome microcalcifications, or architectural distortion to suggest development of malignancy. Donaldo Godinez MD IMG MAMMOGRAPHY ORDERABL ES Final Result from Last 3 Months or Most Recently Relevant to Health Maintenance Insurance MEDICARE A & B Member Subscriber Plan / Payer (Ef fective 2014-Present) Name:Ira Cardosone Member ID:[id number] Relation to Subscriber:Self Name:Falguni Cardosonatty Anderson Subscriber ID:[id number] Payer ID:[id number] Group ID:Not on file Type:Not on file Address: [address] Care Teams Data Security Analyst Relationship Specialty Start Date End Date Enzo Wright MD [address] [facility] [address] [place] [address] PCP - General Internal Medicine 05/20/22
--- OUTSIDE RECORDS SUMMARY | 2024-10-24 12:27 | XMS_ITS | Clinical Summary ---
Author Organization [facility] Address [address] [place] [address] Care Team Providers Care News Intern Name Role Phone Enzo Wright MD Primary Care Provider [phone] Allergies Active Allergy Reactions Criticality Noted Date [...] (08/01/2022): Added automatically from request for surgery [id number] Obesity (BMI 35.0-39.9 without comorbidity) 10/2021 Severe [...] history exists UKY-Bone Density Scan 06/22/2023 06/21/2022 [id number]-05 Vaccine (3 - season) 2023 05/22/2020, 04/28/2020 UKY-RSV Vaccine: 60+ Years or (1 - 1-dose 75+ series) 2024 UKY-Influenza Vaccine (#1) 11/25/202403/24, 02/02/2022, 01/21/2020, Additional history exists UKY-Pneumococcal Vaccine: [...] this topic Medical Devices Implanted Type Area Well Logging Captain Mud Analysis Device Identifier Shelf Expiration Date Model / Serial / Lot Cement Palacos - [id number] Implanted:Qty: 2 on 10/04/2022 by Juan Salinas MD at [facility] Left: Knee [id number] 03/26/2027 [id number] / / [id number] Chg Femoral Legion Cr Nrrw Oxin Sz6 Lt - [id number] Implanted:Qty: 1 on 10/04/2022 by Juan Salinas MD at [facility] Left: Knee [employer]-[id number] 03/14/2032 [id number] / / [id number] Chg Tibial Gns Ii Cmt Size 4 L - [id number] Implanted:Qty: 1 on 10/04/2022 by Juan Salinas MD at [facility] Left: Knee [employer]-[id number] 04/20/2032 [id number] / / [id number] Knee Insert Ii Dished Sz 3-4 9mm - [id number] Implanted:Qty: 1 on 10/04/2022 by Juan Salinas MD at [facility] Left: Knee [employer]-[id number] 05/05/2031 [id number] / / [id number] Chg Patella Gii Oval Resurfaci - [id number] Implanted:Qty: 1 on 10/04/2022 by Juan Salinas MD at [facility] Left: Knee [employer]-[id number] 03/29/2032 [id number] / / [id number] Insurance [facility] Advance Directives * Full Code (Latest Code Status on File) Date Activated Date Inactivated Comments 10/04/2022 9:17 AM 10/05/2022 3:34 PM Question Answer Comments Patient has decision-making capacity? Yes Care Teams News Intern Relationship Specialty Start Date End Date Enzo Wright MD [id number] [phone] PCP - General 10/04/22
--- NOTE | 2024-10-24 12:29 | XR_ITS ---
FINAL REPORT CLINICAL HISTORY: Left Wrist Pain COMPARISON: 09/19/2024 FINDINGS: LEFT WRIST Three views were obtained. Again identified are postoperative changes from ORIF of the distal radius. The hardware is intact. Alignment is unchanged. There has been interval healing of the fracture. The bones are osteopenic. There is multijoint degenerative disease. There continues to be mild soft tissue edema. IMPRESSION: Postsurgical changes as above. Reviewed, Interpreted and Dictated by Isabel Schreiber MD Transcribed by Claudia Crawford Authenticated and [facility]
== END 2024-10-24 23:59 | disposition home or self-care (01) ==
LOC: RAD 12:26
PROVIDERS: PCP Internal Medicine; Visit Provider Orthopaedic Surgery
DX: S52.502D Unspecified fracture of the lower end of left radius, subsequent encounter for closed fracture with routine healing (principal); X58.XXXD Exposure to other specified factors, subsequent encounter; M19.032 Primary osteoarthritis, left wrist; M85.842 Other specified disorders of bone density and structure, left hand
CPT/HCPCS: 73110